=== PATIENT | female | born 1955 | race Caucasian/White ===

== ENCOUNTER 2020-06-03 11:29 | Outpatient (REF) | payer MEDICARE, OTHER, SELFPAY ==
[2020-06-03 12:46] LABS: Anion Gap 16 (12-20); Blood Urea Nitrogen 27 mg/dL (9-16); Calcium 9.7 mg/dL (8.4-10.2); Carbon Dioxide 28 mmol/L (22-29); Chloride 101 mmol/L (96-108); Estimated Glomerular Filt Rate 45; Glucose Random 107 mg/dL (60-115); Potassium 4.4 mmol/L (3.3-5.1); Rheumatoid Factor < 15.0 IU/mL (<15.0); Sodium 141 mmol/L (135-145)
[2020-06-03 13:07] LABS: Erythrocyte Sedimentation Rate 18 MM/HR (0-20)
[2020-06-04 05:43] LABS: Lyme Abs Screen <0.90 index
[2020-06-04 09:20] LABS: Syphilis Screen Nonreactive (Nonreactive)
[2020-06-04 13:37] LABS: Anti Nuclear Antibody Screen NEGATIVE (NEGATIVE)
[2020-06-04 15:37] LABS: Anti DNA DS Antibody <1 IU/mL
[2020-06-05 11:42] LABS: IgA 224 mg/dL (70-320); IgG 866 mg/dL (600-1540); IgM 180 mg/dL (50-300)
== END 2020-06-03 11:30 | disposition home or self-care (01) ==
LOC: HO.LAB 11:29
PROVIDERS: PCP Internal Medicine; Visit Provider Psychiatry & Neurology Neurology
DX: G93.40 Encephalopathy, unspecified (principal)
CPT/HCPCS: 36415; 80048; 82784; 85652; 86038; 86039; 86225; 86334; 86431; 86618; 86780

== ENCOUNTER 2020-06-09 12:24 | Outpatient (REF) | payer MEDICARE, OTHER, SELFPAY ==
--- NOTE | ~2020-06-09 | MR_ITS ---
MR BRAIN WITHOUT AND WITH IV CONTRAST CLINICAL INFORMATION: Encephalopathy. COMPARISON: Brain MRI 10/09/2018. TECHNIQUE: Multiplanar, multisequence MRI of the brain was obtained before and after the intravenous administration of 9 mL Gadavist. FINDINGS: There is no pathologic intracranial enhancement. Stable nonspecific T2 signal changes within the supratentorial subcortical and deep white matter. There is no hydrocephalus, extra-axial surface collection, or herniation. The major flow voids at the skull base are preserved. There is no acute infarct on diffusion-weighted imaging. There is no intracranial hemorrhage on the gradient recalled echo acquisition. There is a partially empty sella. The cerebellar tonsils are normally positioned. The cerebellum and brainstem are normal. The craniocervical junction is normal. Osseous marrow signal intensity is homogenous. The visualized soft tissues are unremarkable. MR/MR head/brain wo/w con IMPRESSION: - No acute intracranial findings. No enhancing lesions. - Stable nonspecific T2 signal changes within the supratentorial subcortical and deep white matter. - There is a partially empty sella.
== END 2020-06-09 12:25 | disposition home or self-care (01) ==
LOC: HO.MRI 12:24
PROVIDERS: Visit Provider Psychiatry & Neurology Neurology
DX: G93.40 Encephalopathy, unspecified (principal)
CPT/HCPCS: 70553; A9585

== ENCOUNTER 2020-07-06 13:03 | Outpatient (REF) | payer MEDICARE, SELFPAY ==
--- NOTE | ~2020-07-06 | MM_ITS ---
EXAMINATION: MM SCREENING DIGITAL BREAST TOMOSYNTHESIS, BILATERAL CLINICAL INFORMATION: Screening. Asymptomatic. Family history breast cancer in sister, age 58. The lifetime risk of breast cancer based on the Tyrer-Cuzick Model is 12%. COMPARISON: Outside mammography: 04/26/2018, 05/26/2016 ([place]) TECHNIQUE: Digital breast tomosynthesis is performed in both the craniocaudal and mediolateral oblique views along with computer-aided detection (CAD). Synthesized 2D images are generated from the tomosynthesis. FINDINGS: There are scattered areas of fibroglandular density (ACR BI-RADS breast composition Category b). Breast tissue composition borders on predominantly fatty. Left breast is unremarkable. There is no interval mass or architectural abnormality. Low left axillary tail nodes are stable. Neither breast shows abnormal calcifications. The skin contours are smooth. Right CC view has asymmetric density mid outer quadrant likely summation artifact. There is no correlate on the MLO view. Patient will be recalled for additional imaging. MM/MM tomosynthesis screening BI IMPRESSION: 1. Right: Asymmetric density mid outer quadrant on CC view likely summation artifact. 2. Left: No mammographic evidence of malignancy. ASSESSMENT: BI-RADS 0: Incomplete - Need Additional Imaging Evaluation RECOMMENDATION: 1. Additional views of the right breast (3-D spot CC, 3-D rolled CC x2). 2. Targeted ultrasound if warranted after review of the additional views. 3. Radiology department staff will contact the patient for additional imaging. This patient's information was entered into a reminder system with a target due date for their next mammogram.
--- NOTE | ~2020-07-06 | MM_ITS ---
EXAMINATION: BONE DENSITOMETRY CLINICAL INDICATION: Menopausal. COMPARISON: This is the patient's baseline examination. TECHNIQUE: Using a Joost DXA System (software version: 13.1) manufactured by [employer], dual-energy x-ray absorptiometry was performed of the lumbar spine and left hip. The images are of good technical quality. Summary results are attached. FINDINGS: AP SPINE L1-L4: BMD 1.249 g/cm2, Z-score 1.3, T-score 0.6, normal. LEFT FEMUR, NECK: BMD 1.040 g/cm2, Z-score 0.9, T-score 0.0, normal. LEFT FEMUR, TOTAL: BMD 1.155 g/cm2, Z-score 1.8, T-score 1.2, normal. IDENTIFIED RISK FACTORS: None listed. HISTORY OF FRACTURE: Recurrent falls, low calcium intake, thiazide, menopause. MEDICATIONS: Vitamin D. MM/XR DEXA axial skeleton IMPRESSION: 1. DIAGNOSIS: Normal bone density based on the lowest T-score value of 0.0 in the femoral neck applying World Health Organization criteria. 2. 10-YEAR FRACTURE RISK PREDICTION, FRAX: Major osteoporotic fracture (clinical spine, forearm, hip or shoulder) 6.1%. Hip fracture 0.2%. 3. Treatment Recommendations: NOF guidelines recommend consideration for treatment in postmenopausal women and men age 50 and older presenting with the following: -A hip or vertebral (clinical or morphometric) fracture. -T-score less than or equal to -2.5 at the femoral neck or spine after appropriate evaluation to exclude secondary causes. -Low bone mass at the hip or spine and a 10-year fracture probability by FRAX of greater than or equal to 3% for hip fracture or greater than or equal to 20% for major osteoporotic fracture based on the [place] adapted WHO algorithm. 4. Other Recommendations: All treatment decisions require clinical judgment and consideration of individual patient factors, including patient preferences, comorbidities, previous drug use, risk factors not captured in the FRAX model (e.g. frailty, falls, vitamin D deficiency, increased bone turnover, interval significant decline in bone density) and possible under or overestimation of fracture risk by FRAX. FUTURE SCAN RECOMMENDATION: People with diagnosed cases of osteoporosis or at high risk for fracture should have regular bone mineral density tests. For patients eligible for Medicare, routine testing is allowed once every 2 years. The testing frequency can be increased to one year for patients who have rapidly progressing disease, those who are receiving or discontinuing medical therapy to restore bone mass, or have additional risk factors.
== END 2020-07-06 13:04 | disposition home or self-care (01) ==
LOC: HO.MAMMO 13:03
PROVIDERS: Visit Provider Internal Medicine
DX: Z13.820 Encounter for screening for osteoporosis (principal); Z78.0 Asymptomatic menopausal state; E58 Dietary calcium deficiency; Z91.81 History of falling; Z79.899 Other long term (current) drug therapy; Z12.31 Encounter for screening mammogram for malignant neoplasm of breast; Z80.3 Family history of malignant neoplasm of breast
CPT/HCPCS: 77063; 77067; 77080

== ENCOUNTER 2020-07-06 15:57 | Outpatient (REF) | payer MEDICARE, SELFPAY ==
[2020-07-08 19:12] LABS: HPV mRNA E6/E7 rflx Not Detected (Not Detected)
== END 2020-07-06 15:58 | disposition home or self-care (01) ==
LOC: HO.LAB 15:57
PROVIDERS: Visit Provider Obstetrics & Gynecology
DX: Z01.419 Encounter for gynecological examination (general) (routine) without abnormal findings (principal)
CPT/HCPCS: 36415; 87624; 88142

== ENCOUNTER 2020-07-14 13:21 | Outpatient (REF) | payer MEDICARE, SELFPAY | END 2020-07-14 13:22 | disposition home or self-care (01) | LOC: HO.MDS 13:21 | PROVIDERS: PCP Internal Medicine; Visit Provider Psychiatry & Neurology Neurology | DX: G35 Multiple sclerosis (principal) | CPT/HCPCS: 96365; J2930 ==

== ENCOUNTER 2020-07-15 13:52 | Outpatient (REF) | payer MEDICARE, SELFPAY | END 2020-07-15 13:53 | disposition home or self-care (01) | LOC: HO.MDS 13:52 | PROVIDERS: PCP Internal Medicine; Visit Provider Psychiatry & Neurology Neurology | DX: G35 Multiple sclerosis (principal) | CPT/HCPCS: 96365; J2930 ==

== ENCOUNTER 2020-07-16 13:16 | Outpatient (REF) | payer MEDICARE, SELFPAY | END 2020-07-16 13:17 | disposition home or self-care (01) | LOC: HO.MDS 13:16 | PROVIDERS: PCP Internal Medicine; Visit Provider Psychiatry & Neurology Neurology | DX: G35 Multiple sclerosis (principal) | CPT/HCPCS: 96365; J2930 ==

== ENCOUNTER 2020-07-20 12:53 | Outpatient (REF) | payer MEDICARE, SELFPAY ==
--- NOTE | ~2020-07-20 | US_ITS ---
EXAMINATION: PELVIC ULTRASOUND CLINICAL INFORMATION: Postmenopausal bleeding. COMPARISON: Previous CT of the abdomen and pelvis March 2019 TECHNIQUE: Transabdominal and transvaginal pelvic ultrasound was performed. Transvaginal exam was performed for better visualization of the uterus and ovaries. Exam is limited due to patient body habitus. The bladder is not full and transabdominal images are limited. FINDINGS: The uterus is anteverted and measures 5.5 x 2.8 x 4.7 cm in dimension. Endometrial thickness measures 0.5 cm. There is a small amount of fluid seen in the endometrial cavity. No focal uterine lesion is seen. The right ovary measures 2.9 x 1.8 x 2.3 cm. There is a 2.9 x 1.6 x 1.5 cm minimally complex cyst with single thin septation. The left ovary is not well visualized and difficult to measure. There is a left adnexal simple cyst that measures 2.9 x 2.5 x 1.1 cm. There is trace fluid in the pelvis. US/US transvaginal IMPRESSION: Limited exam. Endometrial thickness upper normal measuring 0.5 cm. There is a small amount of fluid in the endometrial cavity. 2.9 x 1.6 x 1.5 cm minimally complex right ovarian cyst with single thin septation. Left ovary not well visualized. 2.9 x 2.5 x 1.1 cm simple left adnexal cyst.
--- NOTE | ~2020-07-20 | US_ITS ---
EXAMINATION: PELVIC ULTRASOUND CLINICAL INFORMATION: Postmenopausal bleeding. COMPARISON: Previous CT of the abdomen and pelvis March 2019 TECHNIQUE: Transabdominal and transvaginal pelvic ultrasound was performed. Transvaginal exam was performed for better visualization of the uterus and ovaries. Exam is limited due to patient body habitus. The bladder is not full and transabdominal images are limited. FINDINGS: The uterus is anteverted and measures 5.5 x 2.8 x 4.7 cm in dimension. Endometrial thickness measures 0.5 cm. There is a small amount of fluid seen in the endometrial cavity. No focal uterine lesion is seen. The right ovary measures 2.9 x 1.8 x 2.3 cm. There is a 2.9 x 1.6 x 1.5 cm minimally complex cyst with single thin septation. The left ovary is not well visualized and difficult to measure. There is a left adnexal simple cyst that measures 2.9 x 2.5 x 1.1 cm. There is trace fluid in the pelvis. US/US pelvic complete IMPRESSION: Limited exam. Endometrial thickness upper normal measuring 0.5 cm. There is a small amount of fluid in the endometrial cavity. 2.9 x 1.6 x 1.5 cm minimally complex right ovarian cyst with single thin septation. Left ovary not well visualized. 2.9 x 2.5 x 1.1 cm simple left adnexal cyst.
== END 2020-07-20 12:54 | disposition home or self-care (01) ==
LOC: HO.US 12:53
PROVIDERS: Visit Provider Obstetrics & Gynecology
DX: N95.0 Postmenopausal bleeding (principal)
CPT/HCPCS: 76830; 76856

== ENCOUNTER 2020-08-03 12:14 | Outpatient (REF) | payer MEDICARE, SELFPAY ==
[2020-08-03 13:09] LABS: Hematocrit 40.2 % (37-47); Mean Corpuscular HGB Conc 32.3 g/dl (31.0-35.0); Mean Corpuscular Hemoglobin 31.3 pg (27.0-33.0); Mean Corpuscular Volume 96.9 fL (80-98); Mean Platelet Volume 10.5 fL (9.4-12.3); Platelet Count 320 X10*3/uL (160-400); Red Blood Count 4.15 X10*6/uL (4.20-5.50); Red Cell Distribution Width 12.9 % (11.0-16.0); White Blood Count 9.1 X10*3/uL (4.8-10.8)
[2020-08-03 13:39] LABS: Alanine Aminotransferase 27 U/L (0-31); Albumin Level 4.1 g/dL (3.5-5.0); Alkaline Phosphatase 52 U/L (39-117); Anion Gap 13 (12-20); Aspartate Amino Transferase 23 U/L (5-31); Bilirubin Direct 0.2 mg/dL (0.0-0.5); Bilirubin Total 0.5 mg/dL (0.0-1.0); Blood Urea Nitrogen 21 mg/dL (9-16); Calcium 8.6 mg/dL (8.4-10.2); Carbon Dioxide 31 mmol/L (22-29); Chloride 102 mmol/L (96-108); Estimated Glomerular Filt Rate > 60; Glucose Random 136 mg/dL (60-115); Potassium 3.9 mmol/L (3.3-5.1); Sodium 142 mmol/L (135-145); Total Protein 6.5 g/dL (6.5-8.0)
[2020-08-03 14:00] LABS: Vitamin D 25-OH Total 43.1 ng/mL (>30)
[2020-08-16 21:52] LABS: JCV Antibody POSITIVE; JCV Index Value 3.16
== END 2020-08-03 12:15 | disposition home or self-care (01) ==
LOC: HO.LAB 12:14
PROVIDERS: PCP Internal Medicine; Visit Provider Psychiatry & Neurology Neurology
DX: G35 Multiple sclerosis (principal)
CPT/HCPCS: 36415; 80048; 80076; 82306; 85027; 86711

== ENCOUNTER 2020-08-04 08:27 | Outpatient (REF) | payer MEDICARE, SELFPAY ==
--- NOTE | ~2020-08-04 | MM_ITS ---
EXAMINATION: MM DIAGNOSTIC DIGITAL BREAST TOMOSYNTHESIS, RIGHT CLINICAL INFORMATION: Recall from screening for asymmetric density mid outer right breast on CC tomography without MLO correlate. Family history breast cancer sister, age 58. COMPARISON: Mammography: 07/06/2020 ([facility]), outside exams (2D FFDM) 04/26/2018, 05/26/2016 ([place]). TECHNIQUE: Digital breast tomosynthesis is performed. 2D images are generated from the tomosynthesis. The following views are obtained: 3-D spot CC, 3-D rolled CC x2. FINDINGS: There are scattered areas of fibroglandular density (ACR BI-RADS breast composition Category b). The additional views show fibroglandular densities mid outer breast similar to the 2-D CC view outside exam. There is no mass or architectural abnormality. Results are discussed with the patient at time of visit. Given the family history and as a precaution, follow-up right digital breast tomosynthesis will be recommended in 6 months. MM/MM tomosynthesis added views R IMPRESSION: Additional views show no mass or architectural abnormality. ASSESSMENT: BI-RADS 3: Probably Benign RECOMMENDATION: Diagnostic right 3-D mammography in 6 months. This patient's information was entered into a reminder system with a target due date for their next mammogram.
== END 2020-08-04 08:28 | disposition home or self-care (01) ==
LOC: HO.MAMMO 08:27
PROVIDERS: Visit Provider Internal Medicine
DX: N64.89 Other specified disorders of breast (principal); Z80.3 Family history of malignant neoplasm of breast
CPT/HCPCS: 77061; 77065

== ENCOUNTER 2020-08-23 11:00 | Outpatient (REF) | payer MEDICARE, SELFPAY ==
[2020-08-24 09:37] LABS: CA-125 8 U/mL (<35)
== END 2020-08-23 11:01 | disposition home or self-care (01) ==
LOC: HO.LAB 11:00
PROVIDERS: PCP Internal Medicine; Visit Provider Obstetrics & Gynecology
DX: N95.0 Postmenopausal bleeding (principal); N83.299 Other ovarian cyst, unspecified side
CPT/HCPCS: 36415; 86304; Q3014

== ENCOUNTER 2020-10-05 09:50 | Outpatient (REF) | payer MEDICARE, SELFPAY | END 2020-10-05 09:51 | disposition home or self-care (01) | LOC: HO.LAB 09:50 | PROVIDERS: PCP Internal Medicine; Visit Provider Obstetrics & Gynecology | DX: N95.0 Postmenopausal bleeding (principal) | CPT/HCPCS: 58100; 88305 ==

== ENCOUNTER 2020-10-05 23:44 | Emergency (ER) | payer MEDICARE, SELFPAY ==
--- NOTE | ~2020-10-05 | CT_ITS ---
EXAMINATION: CT ABDOMEN AND PELVIS WITHOUT CONTRAST CLINICAL INFORMATION: Pain after procedure with abdominal distention COMPARISON: CT abdomen pelvis 04/05/2019 TECHNIQUE: Multidetector volumetric imaging was performed from the superior aspect of the liver through the pubic symphysis. Sagittal and coronal reformatted images were obtained on the technologist's workstation. This CT examination was performed using dose optimization techniques as appropriate, variously including the following: *Automated exposure control *Adjustment of mA and/or kV according to patient size (this includes techniques or standardized protocols for targeted exams where dose is matched to indication/reason for exam; i.e. extremities or head) *Use of iterative reconstruction technique DLP: 846 mGy-cm FINDINGS: LUNG BASES: The visualized lung bases are unremarkable. Atelectasis is present at the right lung base LIVER, GALLBLADDER, AND BILIARY TREE: The liver is normal in size, shape, and attenuation. No focal hepatic lesion or biliary ductal dilatation is present. The gallbladder is unremarkable with no evidence of radiopaque gallstones, gallbladder wall thickening, or obvious pericholecystic inflammatory changes. PANCREAS: Unremarkable. SPLEEN: Unremarkable. ADRENAL GLANDS: Unremarkable. KIDNEYS AND URETERS: The kidneys are normal in size, shape, and attenuation. No hydronephrosis, hydroureter, or calculi seen. No perinephric stranding. BLADDER: Unremarkable. GASTROINTESTINAL TRACT: Extensive diverticular changes are present throughout the colon, especially on the left. There is one area in the proximal descending colon where there are inflammatory changes around diverticula with thickening of the pericolonic fascia. The small and large bowel are otherwise unremarkable. The appendix is unremarkable. ABDOMINAL WALL: No significant hernia is appreciated. Small bilateral inguinal hernias are present containing only fat. LYMPH NODES: No retroperitoneal lymphadenopathy. VASCULAR: Unremarkable. PELVIC VISCERA: Anteverted uterus is present. An abnormal adnexal mass or free intraperitoneal fluid is not seen. OSSEOUS STRUCTURES: Degenerative changes present in the spine most marked at L5-S1. CT/CT abdomen pelvis wo con IMPRESSION: 1. Extensive colonic diverticulosis. 2. One area in the proximal descending colon with inflammatory changes around the colon at this point. No free extraluminal air is seen. No pericolonic fluid collection is seen. Findings may be related to diverticulitis or possibly iatrogenic trauma given post procedure pain
--- NOTE | 2020-10-05 23:53 | ECG_ITS ---
Test Reason : CHEST PAIN Blood Pressure : / mmHG Vent. Rate : 083 BPM Atrial Rate : 083 BPM P-R Int : 148 ms QRS Dur : 094 ms QT Int : 390 ms P-R-T Axes : 028 040 027 degrees QTc Int : 458 ms Normal sinus rhythm Normal ECG When compared with ECG of 05-APR-2019 21:48, No significant change was found Referred By: Generic ED Physician Electronically Signed By:ZAINA SHETTY MD
[2020-10-05 23:54] VITALS: BP 147/84; PULSE 84; RESP 18; TEMP 35.4; O2SAT 98; BMI 35.4
[2020-10-06 00:03] VITALS: BP 150/80; PULSE 75; O2SAT 96
--- NOTE | 2020-10-06 00:05 | PC.NURSE ---
DIFFICULTY OBTAINING ORAL TEMPERATURE, PT REFUSED RECTAL TEMPERATURE. TEMPORAL WAS 95.6.
--- NOTE | 2020-10-06 00:30 | ED_ITS ---
HPI - General Adult General Chief complaint: General Medical Stated complaint: abd pain Time Seen by Provider: 10/06/20 00:27 Source: patient Mode of arrival: EMS History of Present Illness HPI narrative: This is a 64-year-old female who is brought in by ambulance and on review of procedure today she had undergone an endometrial biops and now presents with diffuse abdominal discomfort, distention but denies any nausea or vomiting. Related Data Home Medications Medication Instructions Recorded Confirmed fluticasone 500 mcg-salmeterol 50 1 ea INHALATION BID 07/06/20 mcg/dose blistr powdr for inhalation hydrochlorothiazide 12.5 mg capsule 12.5 mg PO DAILY 07/06/20 ibuprofen 600 mg tablet 600 mg PO TID 07/06/20 tranylcypromine 10 mg tablet 40 mg PO QAM 07/06/20 Allergies Allergy/AdvReac Type Severity Reaction Status Date / Time celecoxib [From CELEBREX] Allergy Severe RASH AND Verified 10/05/20 23:52 DIFFICULTY BREATHING fluvoxamine [From LUVOX] Allergy Severe GRAND MAL Verified 10/05/20 23:52 SEIZURE acetaminophen [From TYLENOL] Allergy Intermediate LIVER TOX Verified 10/05/20 23:52 sertraline [From ZOLOFT] Allergy Intermediate ABD PAIN Verified 10/05/20 23:52 Review of Systems Review of Systems: Pertinent positives and negatives as stated in HPI 10 point review of systems is otherwise negative. FOR[facility] Past Medical History Source: nursing notes reviewed Medical History Asthma Bipolar 2 disorder Blindness Ectopic Herniated disc MDD (major depressive disorder) PTSD (post-traumatic stress disorder) Surgical History Hx of rotator cuff surgery Social History Social History Alcohol intake: current Alcohol intake frequency: a few times a week Advance Directives: No Advance Directives Information Provided: No Gender identity: female Physical Exam Vital Signs: Vital Signs: Last Vital Signs Temp 95.7 F L 10/05/20 23:54 Pulse 84 10/05/20 23:54 Resp 18 10/05/20 23:54 BP 147/84 H 10/05/20 23:54 Pulse Ox 98 06/08/21 23:54 Body Mass Index 35.4 VITAL SIGNS: Reviewed. GENERAL: Well developed, well nourished, in no acute distress. HEAD: Normocephalic/atraumatic EYES: PERRLA, EOMI OROPHARYNX: no oral lesions noted, posterior pharynx clear LUNGS: Normal breath sounds. No adventitious sounds or accessory muscle use. SpO2<98> CARDIOVASCULAR: Regular rate and rhythm without noted murmurs, no JVD or lower extremity edema. ABDOMEN: Soft, diffuse tenderness without rebound, non-distended with bowel sounds. SKIN: Inspection of the skin reveals pale and diaphoretic. NEUROLOGIC: Alert and oriented x 4. Strength and sensation to light touch were grossly intact x 4. Course Course Course Narrative: 64-year-old female with history and clinical presentation concerning for possible perforation given recent procedure endometrial biopsy, UTI, renal colic Review of all investigations significant for UTI. Patient received initial antibiotics here in the emergency room and was discharged with remaining course. Medical Decision Making Lab Data Result diagrams: 10/06/20 00:54 10/06/20 00:55 ECG Data Attestation: I personally reviewed and interpreted this ECG as follows: Prior ECG tracings: available for review (04/05/2019 no acute changes on comparison) Interpretation: Sinus rhythm, HR -83, no evidence of acute ischemia, WA/QRS/QTC are within normal limits. Discharge Plan Discharge Clinical Impression: UTI (urinary tract infection) Patient Disposition: Home, Self-Care Instructions: Urinary Tract Infection in Women (ED) Additional Instructions: Resume all home medications as prescribed. Return to the ER for any acute worsening of symptoms. Prescriptions: No Action hydrochlorothiazide 12.5 mg capsule 12.5 mg PO DAILY RF: 0 ibuprofen 600 mg tablet 600 mg PO TID RF: 0 fluticasone propion-salmeterol 500-50 mcg/dose blister with device 1 ea inhalation BID RF: 0 tranylcypromine 10 mg tablet 40 mg PO QAM RF: 0 Referrals: Luke Mireles MD [Primary Care Provider] - 2 days
[2020-10-06 00:59] LABS: MANUAL DIFF FLAG NO
[2020-10-06 05:51] LABS: Lactic Acid 0.9 mmol/L (0.5-2.0)
[2020-10-06 05:52] LABS: Basophils Absolute Auto 0.1 X10*3/uL (0.0-0.2); Basophils Percent Auto 0.5 % (0-2); Eosinophils Absolute Auto 0.5 X10*3/uL (0.0-0.4); Eosinophils Percent Auto 4.4 % (0-4); Hemoglobin 12.6 g/dl (12.0-16.0); Imm Gran Abs Auto 0.02 X10*3/uL (0.00-0.03); Imm Gran Pct Auto 0.2 % (0.0-0.4); Lymphocytes Absolute Auto 0.9 X10*3/uL (1.2-4.9); Lymphocytes Percent Auto 7.6 % (20-40); Mean Corpuscular HGB Conc 32.3 g/dl (31.0-35.0); Mean Corpuscular Hemoglobin 31.4 pg (27.0-33.0); Mean Corpuscular Volume 97.3 fL (80-98); Mean Platelet Volume 10.9 fL (9.4-12.3); Monocytes Absolute Auto 0.7 X10*3/uL (0.1-1.2); Monocytes Percent Auto 6.1 % (2-11); Neutrophils Absolute Auto 9.1 X10*3/uL (2.0-8.3); Neutrophils Percent Auto 81.2 % (45-73); Platelet Count 285 X10*3/uL (160-400); Red Blood Count 4.01 X10*6/uL (4.20-5.50); Red Cell Distribution Width 12.7 % (11.0-16.0); White Blood Count 11.2 X10*3/uL (4.8-10.8)
[2020-10-06 06:01] LABS: Glucose Urine UA NEG (NEG); Leukocyte Esterase Urine 1+ (NEG); Nitrite Urine NEG (NEG); UACC Culture Trigger YES; Urine Blood NEG (NEG); Urine Ketones NEG (NEG); Urine Protein NEG (NEG-TRACE)
[2020-10-06 06:02] LABS: Appearance Urine CLEAR; Color Urine YELLOW
[2020-10-06 06:03] LABS: Bacteria Urine TRACE /LPF; Mucus Urine 1+ /LPF; RBC Urine 0-2 /HPF (0); Squamous Epithelial Cell Urine 1+ /LPF; Urine Talc Crystals 2+ /LPF
[2020-10-06 06:06] LABS: Alanine Aminotransferase 138 U/L (0-31); Albumin Level 4.1 g/dL (3.5-5.0); Alkaline Phosphatase 57 U/L (39-117); Anion Gap 13 (12-20); Aspartate Amino Transferase 257 U/L (5-31); Bilirubin Total 0.2 mg/dL (0.0-1.0); Blood Urea Nitrogen 23 mg/dL (9-16); Calcium 9.3 mg/dL (8.4-10.2); Carbon Dioxide 29 mmol/L (22-29); Chloride 102 mmol/L (96-108); Creatinine Clr Calc Pharmacy 78.9; Estimated Glomerular Filt Rate > 60; Glucose Random 161 mg/dL (60-115); Potassium 3.3 mmol/L (3.3-5.1); Sodium 141 mmol/L (135-145); Total Protein 6.3 g/dL (6.5-8.0)
--- NOTE | 2020-10-06 06:32 | PC.NURSE ---
SEE DOWN TIME PAPERWORK. PT DISCHARGED TO , AMBULATORY WITH STEADY GAIT. PT PAIN FREE UPON DISCHARGE. PT QUESTIONING IF SHE HAD A GALLSTONE.
== END 2020-10-06 06:35 | disposition home or self-care (01) ==
PROVIDERS: Emergency Provider Student in an Organized Health Care Education/Training Program; PCP Internal Medicine
DX: N39.0 Urinary tract infection, site not specified (principal); R10.9 Unspecified abdominal pain; Z98.890 Other specified postprocedural states
CPT/HCPCS: 36415; 74176; 80053; 81001; 81003; 83605; 85025; 87040; 87086; 93005; 96360; 99283; 99284

== ENCOUNTER 2020-10-15 13:00 | Outpatient (REF) | payer MEDICARE, SELFPAY ==
--- NOTE | ~2020-10-15 | US_ITS ---
EXAMINATION: US PELVIC COMPLETE US TRANSVAGINAL CLINICAL INFORMATION: Followup ovarian cyst. COMPARISON: Previous CT of the abdomen and pelvis September 2020 and pelvic ultrasound June 2020 TECHNIQUE: Transabdominal and transvaginal pelvic ultrasound was performed. Transvaginal exam was performed for better visualization of the uterus and ovaries. FINDINGS: The uterus is anteverted and measures 4.3 x 2.3 x 3 cm in dimension. There is a hypoechoic lesion in the posterior uterine body measuring 7 x 6 x 9 mm questionable for a small fibroid. No other focal uterine lesion is seen. Endometrial thickness is normal measuring 0.3 cm. The right ovary measures 2.9 x 2 x 2.6 cm. There is question of 2 adjacent cysts or bilobed cyst in the right ovary. These have internal echoes suggestive of complex cysts. Measured as 2 cysts, these measure 1.7 x 1.7 x 1.8 cm and 1.1 x 1.3 x 1.2 cm. Other than low-level internal echoes seen on the current exam, these do not appear appreciably changed from June 2020 ultrasound exam. The left ovary is not seen. There is a left adnexal simple cyst. This measures 2.5 x 0.6 x 2.8 cm. This is similar to previous pelvic ultrasound June 2020. There is no fluid in the pelvis. US/US transvaginal IMPRESSION: Question small uterine fibroid. Question 2 slightly complex right ovarian cysts. This was measured as a single bilobed cyst on June 2020 and other than new internal echoes, it does not appear appreciably changed. Stable simple left adnexal cyst from previous ultrasound June 2020.
--- NOTE | ~2020-10-15 | US_ITS ---
EXAMINATION: US PELVIC COMPLETE US TRANSVAGINAL CLINICAL INFORMATION: Followup ovarian cyst. COMPARISON: Previous CT of the abdomen and pelvis September 2020 and pelvic ultrasound June 2020 TECHNIQUE: Transabdominal and transvaginal pelvic ultrasound was performed. Transvaginal exam was performed for better visualization of the uterus and ovaries. FINDINGS: The uterus is anteverted and measures 4.3 x 2.3 x 3 cm in dimension. There is a hypoechoic lesion in the posterior uterine body measuring 7 x 6 x 9 mm questionable for a small fibroid. No other focal uterine lesion is seen. Endometrial thickness is normal measuring 0.3 cm. The right ovary measures 2.9 x 2 x 2.6 cm. There is question of 2 adjacent cysts or bilobed cyst in the right ovary. These have internal echoes suggestive of complex cysts. Measured as 2 cysts, these measure 1.7 x 1.7 x 1.8 cm and 1.1 x 1.3 x 1.2 cm. Other than low-level internal echoes seen on the current exam, these do not appear appreciably changed from June 2020 ultrasound exam. The left ovary is not seen. There is a left adnexal simple cyst. This measures 2.5 x 0.6 x 2.8 cm. This is similar to previous pelvic ultrasound June 2020. There is no fluid in the pelvis. US/US pelvic complete IMPRESSION: Question small uterine fibroid. Question 2 slightly complex right ovarian cysts. This was measured as a single bilobed cyst on June 2020 and other than new internal echoes, it does not appear appreciably changed. Stable simple left adnexal cyst from previous ultrasound June 2020.
== END 2020-10-15 13:01 | disposition home or self-care (01) ==
LOC: HO.HMGCX 13:00
PROVIDERS: Visit Provider Obstetrics & Gynecology
DX: N83.299 Other ovarian cyst, unspecified side (principal)
CPT/HCPCS: 76830; 76856

== ENCOUNTER → 2020-10-18 11:04 | Outpatient (BNVA) | payer MEDICARE, SELFPAY | PROVIDERS: PCP Internal Medicine; Visit Provider Obstetrics & Gynecology | DX: N95.0 Postmenopausal bleeding (principal); N83.299 Other ovarian cyst, unspecified side | CPT/HCPCS: Q3014 ==

== ENCOUNTER 2021-02-04 11:23 | Outpatient (REF) | payer MEDICARE, OTHER, SELFPAY ==
--- NOTE | ~2021-02-04 | MM_ITS ---
EXAMINATION: MM DIAGNOSTIC DIGITAL BREAST TOMOSYNTHESIS, RIGHT CLINICAL INFORMATION: Prior question asymmetric density mid outer right breast with negative subsequent diagnostic imaging. Assess for developing density. Family history breast cancer sister, cousin, grandmother. The lifetime risk of breast cancer based on the Tyrer-Cuzick Model is 12%. COMPARISON: Mammography: 08/04/2020, 07/06/2020; outside mammography from [facility] dated 04/26/2018, 05/26/2016. TECHNIQUE: Digital breast tomosynthesis is performed in both the craniocaudal and mediolateral oblique views along with computer-aided detection (CAD). Synthesized 2D images are generated from the tomosynthesis. FINDINGS: There are scattered areas of fibroglandular density (ACR BI-RADS breast composition Category b). Right breast parenchymal pattern is similar to prior studies. There is no developing density, mass, or architectural abnormality. No abnormal calcifications. The axilla and skin contours are unremarkable. Results are provided to the patient at time of visit by the technologist. MM/MM tomosynthesis diagnostic RT IMPRESSION: No mammographic evidence of malignancy. No significant changes in mammographic pattern from prior studies dating back to 2017. ASSESSMENT: BI-RADS 1: Negative RECOMMENDATION: Routine annual mammography screening. This patient's information was entered into a reminder system with a target due date for their next mammogram.
== END 2021-02-04 11:24 | disposition home or self-care (01) ==
LOC: HO.MAMMO 11:23
PROVIDERS: Visit Provider Internal Medicine
DX: R92.2 Inconclusive mammogram (principal)
CPT/HCPCS: 77061; 77065

== ENCOUNTER 2021-06-10 09:11 | Outpatient (REF) | payer MEDICARE, SELFPAY ==
[2021-06-10 10:20] LABS: Cholesterol 227 mg/dL; HDL Cholesterol 60 mg/dL; LDL Cholesterol Calculated 145 mg/dl; Triglycerides 114 mg/dL
[2021-06-10 10:35] LABS: Estimated Average Glucose 120 mg/dL; Hemoglobin A1c % 5.8 %
[2021-06-10 10:48] LABS: Vitamin B12 298 pg/mL (200-900)
== END 2021-06-10 09:12 | disposition home or self-care (01) ==
LOC: HO.LAB 09:11
PROVIDERS: PCP Internal Medicine; Visit Provider Internal Medicine
DX: E78.5 Hyperlipidemia, unspecified (principal); R53.83 Other fatigue
CPT/HCPCS: 36415; 80061; 82607; 83036

== ENCOUNTER 2021-08-16 12:32 | Outpatient (REF) | payer MEDICARE, SELFPAY ==
[2021-08-16 12:59] LABS: MANUAL DIFF FLAG NO
[2021-08-16 13:23] LABS: Basophils Percent Auto 0.6 % (0-2); Eosinophils Absolute Auto 0.4 X10*3/uL (0.0-0.4); Eosinophils Percent Auto 5.6 % (0-4); Hematocrit 38.9 % (37.0-47.0); Hemoglobin 12.7 g/dl (12.0-16.0); Imm Gran Abs Auto 0.04 X10*3/uL (0.00-0.03); Imm Gran Pct Auto 0.6 % (0.0-0.4); Lymphocytes Absolute Auto 0.6 X10*3/uL (1.2-4.9); Lymphocytes Percent Auto 8.9 % (20-40); Mean Corpuscular HGB Conc 32.6 g/dl (31.0-35.0); Mean Corpuscular Hemoglobin 31.6 pg (27.0-33.0); Mean Corpuscular Volume 96.8 fL (80.0-98.0); Mean Platelet Volume 10.4 fL (9.4-12.3); Monocytes Absolute Auto 0.6 X10*3/uL (0.1-1.2); Monocytes Percent Auto 8.4 % (2-11); Neutrophils Absolute Auto 5.1 x10*3/uL (2.0-8.3); Neutrophils Percent Auto 75.9 % (45-73); Platelet Count 338 X10*3/uL (160-400); Red Blood Count 4.02 X10*6/uL (4.20-5.50); Red Cell Distribution Width 12.8 % (11.0-16.0); White Blood Count 6.7 X10*3/uL (4.8-10.8)
[2021-08-16 13:52] LABS: Alanine Aminotransferase 27 U/L (0-31); Alanine Aminotransferase 28 U/L (0-31); Albumin Level 4.1 g/dL (3.5-5.0); Alkaline Phosphatase 39 U/L (39-117); Alkaline Phosphatase 40 U/L (39-117); Anion Gap 15 (12-20); Aspartate Amino Transferase 27 U/L (5-31); Bilirubin Direct < 0.2 mg/dL (0.0-0.5); Bilirubin Total 0.3 mg/dL (0.0-1.0); Blood Urea Nitrogen 22 mg/dL (9-16); Calcium 9.6 mg/dL (8.4-10.2); Carbon Dioxide 28 mmol/L (22-29); Chloride 103 mmol/L (96-108); Cholesterol 198 mg/dL; Estimated Glomerular Filt Rate > 60; Glucose Fasting 123 mg/dL (60-99); HDL Cholesterol 68 mg/dL; LDL Cholesterol Calculated 114 mg/dl; Potassium 4.6 mmol/L (3.3-5.1); Sodium 141 mmol/L (135-145); Total Protein 6.5 g/dL (6.5-8.0); Triglycerides 84 mg/dL
== END 2021-08-16 12:33 | disposition home or self-care (01) ==
LOC: HO.LAB 12:32
PROVIDERS: Absent Provider Internal Medicine; PCP Internal Medicine; Visit Provider Psychiatry & Neurology Neurology
DX: E78.00 Pure hypercholesterolemia, unspecified (principal); R53.83 Other fatigue
CPT/HCPCS: 36415; 80053; 80061; 80076; 82248; 85025

== ENCOUNTER 2021-08-31 10:52 | Outpatient (REF) | payer MEDICARE, SELFPAY | END 2021-08-31 10:53 | disposition home or self-care (01) | LOC: HO.MDS 10:52 | PROVIDERS: PCP Internal Medicine; Visit Provider Psychiatry & Neurology Neurology | DX: G35 Multiple sclerosis (principal) | CPT/HCPCS: 96365; J2930 ==

== ENCOUNTER 2021-09-01 11:24 | Outpatient (REF) | payer MEDICARE, SELFPAY ==
[2021-09-02 07:50] LABS: Glucose, Whole Blood 140 mg/dL (60-115)
== END 2021-09-01 11:25 | disposition home or self-care (01) ==
LOC: HO.MDS 11:24
PROVIDERS: PCP Internal Medicine; Visit Provider Psychiatry & Neurology Neurology
DX: G35 Multiple sclerosis (principal)
CPT/HCPCS: 82947; 96365; J2930

== ENCOUNTER 2021-09-02 11:51 | Outpatient (REF) | payer MEDICARE, SELFPAY | END 2021-09-02 11:52 | disposition home or self-care (01) | LOC: HO.MDS 11:51 | PROVIDERS: PCP Internal Medicine; Visit Provider Psychiatry & Neurology Neurology | DX: G35 Multiple sclerosis (principal) | CPT/HCPCS: 96365; J2930 ==

== ENCOUNTER 2021-09-07 12:58 | Outpatient (REF) | payer MEDICARE, SELFPAY ==
--- NOTE | ~2021-09-07 | MM_ITS ---
EXAMINATION: MM SCREENING DIGITAL BREAST TOMOSYNTHESIS, BILATERAL CLINICAL INFORMATION: Screening. Asymptomatic. Family history breast cancer, sister. The lifetime risk of breast cancer based on the Tyrer-Cuzick Model is 12%. COMPARISON: Mammography: 02/04/2021, 08/04/2020, 07/06/2020, outside exam 04/26/2018 ([place]) TECHNIQUE: Digital breast tomosynthesis is performed in both the craniocaudal and mediolateral oblique views along with computer-aided detection (CAD). Synthesized 2D images are generated from the tomosynthesis. FINDINGS: There are scattered areas of fibroglandular density (ACR BI-RADS breast composition Category b). Breast tissue composition borders on predominantly fatty. Background stromal and fibroglandular densities are stable. There is no interval mass or developing density or architectural abnormality. No abnormal calcifications. The axilla and skin contours are unremarkable. MM/MM tomosynthesis screening BI IMPRESSION: No mammographic evidence of malignancy. ASSESSMENT: BI-RADS 1: Negative RECOMMENDATION: Routine annual mammography screening. This patient's information was entered into a reminder system with a target due date for their next mammogram.
== END 2021-09-07 12:59 | disposition home or self-care (01) ==
LOC: HO.MAMMO 12:58
PROVIDERS: Visit Provider Internal Medicine
DX: Z12.31 Encounter for screening mammogram for malignant neoplasm of breast (principal)
CPT/HCPCS: 77063; 77067

== ENCOUNTER 2021-11-24 13:50 | Outpatient (REF) | payer MEDICARE, SELFPAY | END 2021-11-24 13:51 | disposition home or self-care (01) | LOC: HO.MDS 13:50 | PROVIDERS: PCP Internal Medicine; Visit Provider Psychiatry & Neurology Neurology | DX: G35 Multiple sclerosis (principal) | CPT/HCPCS: 96365; J2930 ==

== ENCOUNTER 2021-12-31 10:32 | Outpatient (REF) | payer MEDICARE, SELFPAY ==
[2021-12-31 11:40] LABS: Troponin-I High Sensitivity < 3.5 ng/L (<3.5-17.0)
== END 2021-12-31 10:33 | disposition home or self-care (01) ==
LOC: HO.LAB 10:32
PROVIDERS: PCP Internal Medicine; Visit Provider Internal Medicine
DX: R07.89 Other chest pain (principal)
CPT/HCPCS: 36415; 84484

== ENCOUNTER 2022-03-02 14:33 | Outpatient (REF) | payer MEDICARE, SELFPAY ==
[2022-03-02 14:59] LABS: MANUAL DIFF FLAG NO
[2022-03-02 15:26] LABS: Basophils Percent Auto 0.6 % (0-2); Eosinophils Absolute Auto 0.3 X10*3/uL (0.0-0.4); Eosinophils Percent Auto 3.9 % (0-4); Hematocrit 42.7 % (37.0-47.0); Hemoglobin 13.5 g/dl (12.0-16.0); Imm Gran Abs Auto 0.04 X10*3/uL (0.00-0.03); Imm Gran Pct Auto 0.6 % (0.0-0.4); Lymphocytes Absolute Auto 0.6 X10*3/uL (1.2-4.9); Lymphocytes Percent Auto 8.7 % (20-40); Mean Corpuscular HGB Conc 31.6 g/dl (31.0-35.0); Mean Corpuscular Hemoglobin 30.2 pg (27.0-33.0); Mean Corpuscular Volume 95.5 fL (80.0-98.0); Monocytes Absolute Auto 0.5 X10*3/uL (0.1-1.2); Monocytes Percent Auto 8.4 % (2-11); Neutrophils Absolute Auto 4.9 x10*3/uL (2.0-8.3); Neutrophils Percent Auto 77.8 % (45-73); Platelet Count 385 X10*3/uL (160-400); Red Blood Count 4.47 X10*6/uL (4.20-5.50); Red Cell Distribution Width 12.5 % (11.0-16.0); White Blood Count 6.3 X10*3/uL (4.8-10.8)
[2022-03-02 15:29] LABS: Estimated Average Glucose 128 mg/dL; Hemoglobin A1c % 6.1 %
[2022-03-02 16:26] LABS: Alanine Aminotransferase 38 U/L (0-31); Albumin Level 4.4 g/dL (3.5-5.0); Alkaline Phosphatase 48 U/L (39-117); Anion Gap 22 (12-20); Aspartate Amino Transferase 30 U/L (5-31); Bilirubin Total 0.4 mg/dL (0.0-1.0); Blood Urea Nitrogen 26 mg/dL (9-16); Calcium 9.6 mg/dL (8.4-10.2); Carbon Dioxide 21 mmol/L (22-29); Chloride 106 mmol/L (96-108); Cholesterol 223 mg/dL; Estimated Glomerular Filt Rate > 60; Glucose Fasting 123 mg/dL (60-99); HDL Cholesterol 68 mg/dL; LDL Cholesterol Calculated 132 mg/dl; Potassium 4.2 mmol/L (3.3-5.1); Sodium 145 mmol/L (135-145); Triglycerides 116 mg/dL
[2022-03-02 16:46] LABS: Vitamin B12 217 pg/mL (200-900)
== END 2022-03-02 14:34 | disposition home or self-care (01) ==
LOC: HO.LAB 14:33
PROVIDERS: PCP Internal Medicine; Visit Provider Internal Medicine
DX: E11.9 Type 2 diabetes mellitus without complications (principal); E78.5 Hyperlipidemia, unspecified; R53.83 Other fatigue; D51.9 Vitamin B12 deficiency anemia, unspecified
CPT/HCPCS: 36415; 80053; 80061; 82607; 83036; 85025

== ENCOUNTER 2023-01-05 13:43 | Outpatient (REF) | payer OTHER, MEDICAID, SELFPAY ==
--- NOTE | ~2023-01-05 | XR_ITS ---
EXAMINATION: XR CHEST CLINICAL INFORMATION: Reason for Exam RT RIB PAIN COMPARISON: None TECHNIQUE: 2 views of the chest FINDINGS: Lines and tubes: None. Streaky right midlung and right basilar opacities may reflect atelectasis. No pleural effusion. No pneumothorax. Ectatic thoracic aorta. Normal cardiac silhouette. No displaced rib fracture appreciated however chest radiographs have limited sensitivity and the ribs were incompletely imaged. XR/XR chest 2V IMPRESSION: 1. Streaky right midlung and right basilar opacities may reflect atelectasis. 2. No displaced rib fracture appreciated however chest radiographs have limited sensitivity and the ribs were incompletely imaged. If clinical concern for rib fracture consider dedicated rib radiographs. 3. Ectatic thoracic aorta.
[2023-01-05 14:01] LABS: MANUAL DIFF FLAG NO
[2023-01-05 14:48] LABS: Basophils Percent Auto 0.6 % (0-2); Eosinophils Absolute Auto 0.3 X10*3/uL (0.0-0.4); Eosinophils Percent Auto 4.6 % (0-4); Hematocrit 40.1 % (37.0-47.0); Hemoglobin 12.9 g/dl (12.0-16.0); Imm Gran Abs Auto 0.03 X10*3/uL (0.00-0.03); Imm Gran Pct Auto 0.6 % (0.0-0.4); Lymphocytes Absolute Auto 0.5 X10*3/uL (1.2-4.9); Lymphocytes Percent Auto 9.2 % (20-40); Mean Corpuscular HGB Conc 32.2 g/dl (31.0-35.0); Mean Corpuscular Hemoglobin 30.7 pg (27.0-33.0); Mean Corpuscular Volume 95.5 fL (80.0-98.0); Mean Platelet Volume 10.8 fL (9.4-12.3); Monocytes Absolute Auto 0.4 X10*3/uL (0.1-1.2); Monocytes Percent Auto 7.2 % (2-11); Neutrophils Absolute Auto 4.2 x10*3/uL (2.0-8.3); Neutrophils Percent Auto 77.8 % (45-73); Platelet Count 307 X10*3/uL (160-400); Red Cell Distribution Width 12.3 % (11.0-16.0); White Blood Count 5.4 X10*3/uL (4.8-10.8)
[2023-01-05 14:52] LABS: Estimated Average Glucose 123 mg/dL; Hemoglobin A1c % 5.9 % (<6.0)
[2023-01-05 15:30] LABS: Alanine Aminotransferase 40 U/L (0-31); Alkaline Phosphatase 44 U/L (39-117); Anion Gap 10 (12-20); Aspartate Amino Transferase 44 U/L (5-31); Bilirubin Direct 0.1 mg/dL (0.0-0.5); Bilirubin Total 0.4 mg/dL (0.0-1.0); Blood Urea Nitrogen 15 mg/dL (9-16); Carbon Dioxide 31 mmol/L (22-29); Chloride 106 mmol/L (96-108); Cholesterol 197 mg/dL (<200); Estimated Glomerular Filt Rate > 60; Glucose Fasting 113 mg/dL (60-99); HDL Cholesterol 57 mg/dL (>40); LDL Cholesterol Calculated 120 mg/dL (<100); Potassium 4.2 mmol/L (3.3-5.1); Sodium 143 mmol/L (135-145); Total Protein 6.4 g/dL (6.5-8.0); Triglycerides 101 mg/dL (<150)
[2023-01-05 15:51] LABS: Free T4 (Free Thyroxine) 0.88 ng/dL (0.71-1.85); Thyroid Stimulating Hormone 0.45 uIU/mL (0.32-4.0)
== END 2023-01-05 13:44 | disposition home or self-care (01) ==
LOC: HO.XRAY 13:43
PROVIDERS: Internal Medicine; PCP Internal Medicine; Visit Provider Internal Medicine
DX: R07.81 Pleurodynia (principal); R53.83 Other fatigue
CPT/HCPCS: 36415; 71046; 80051; 80061; 80076; 82565; 82947; 83036; 84439; 84443; 84520; 85025

== ENCOUNTER 2023-04-10 13:56 | Outpatient (REF) | payer OTHER, SELFPAY | END 2023-04-10 13:57 | disposition home or self-care (01) | LOC: HO.MAMMO 13:56 | PROVIDERS: PCP Internal Medicine; Visit Provider Internal Medicine | DX: Z12.31 Encounter for screening mammogram for malignant neoplasm of breast (principal) | CPT/HCPCS: 77063; 77067 ==

== ENCOUNTER → 2023-04-10 14:45 | Outpatient (BNV) | payer OTHER, SELFPAY | PROVIDERS: PCP Internal Medicine; Visit Provider Radiology Diagnostic Radiology | DX: Z12.31 Encounter for screening mammogram for malignant neoplasm of breast (principal) | CPT/HCPCS: 77063; 77067 ==

== ENCOUNTER 2023-05-16 13:58 | Outpatient (REF) | payer OTHER, SELFPAY | END 2023-05-16 13:59 | disposition home or self-care (01) | LOC: HO.MDS 13:58 | PROVIDERS: Visit Provider Psychiatry & Neurology Neurology | DX: G35 Multiple sclerosis (principal) | CPT/HCPCS: 96365; J2930 ==

== ENCOUNTER 2023-06-21 13:56 | Outpatient (REF) | payer OTHER, SELFPAY | END 2023-06-21 13:57 | disposition home or self-care (01) | LOC: HO.MDS 13:56 | PROVIDERS: Visit Provider Psychiatry & Neurology Neurology | DX: G35 Multiple sclerosis (principal) | CPT/HCPCS: 96365; J2930 ==

== ENCOUNTER 2023-07-26 13:34 | Outpatient (REF) | payer OTHER, SELFPAY ==
[2023-07-26 13:37] VITALS: BP 120/50; PULSE 97; RESP 20; TEMP 36.6; O2SAT 95
[2023-07-26] MEDS: methylPREDNISolone Sod Succ 1,000 MG in 0.9 % Sodium Chloride 50 ML 66 MG IV (13:45)
== END 2023-07-26 13:35 | disposition home or self-care (01) ==
LOC: HO.MDS 13:34
PROVIDERS: Visit Provider Psychiatry & Neurology Neurology
DX: G35 Multiple sclerosis (principal)
CPT/HCPCS: 96365; J2930

== ENCOUNTER 2023-09-17 14:05 | Outpatient (REF) | payer OTHER, SELFPAY ==
--- NOTE | ~2023-09-17 | MR_ITS ---
MRI OF THE CERVICAL SPINE WITH AND WITHOUT CONTRAST MRI OF THE THORACIC SPINE WITH AND WITHOUT CONTRAST INDICATION: Multiple sclerosis. COMPARISON: None available. TECHNIQUE: Multiplanar multisequence MR imaging of the cervical and thoracic spine obtained before and following the administration of 10 mL of Gadavist intravenous contrast without complication.. FINDINGS: CERVICAL SPINE: Post contrast imaging is very limited by artifact within the cervical spine. There are no cord signal changes when accounting for artifact. Cervical alignment is normal. The vertebral body heights are maintained. The disc volumes are preserved. There is no bone marrow edema. There are no acute fractures. Cervical arterial flow voids are maintained. No significant cervical disc herniations. Slight annular disc bulges at C3-C4, C5-C6, and C6-C7. Mild facet arthropathy throughout the cervical spine. No severe central canal stenosis and no severe foraminal stenosis within the cervical spine. A few small foraminal perineural cysts are noted. Partially imaged large exophytic left thyroid lobe nodule along the lower pole of the left thyroid measuring at least 3.1 cm that would be better assessed with thyroid ultrasound. THORACIC SPINE: There are 12 rib bearing thoracic type vertebral bodies. Thoracic alignment is maintained. Vertebral body heights are preserved. There is no bone marrow edema. There are no acute fractures. No thoracic cord signal changes accounting for artifact. No enhancing thoracic cord lesions. No pathologic intrathecal enhancement when accounting for CSF flow artifact. Small shallow paracentral disc protrusions at the mid to lower thoracic levels mildly narrow the central canal. Multilevel endplate osteophytes. No severe central canal stenosis and no severe foraminal stenosis within the thoracic spine. There are multilevel perineural cysts, the largest on the right side at T5-T6. MR/MR cervical spine wo/w con IMPRESSION: - No lesions are appreciated within the cervical nor the thoracic spinal cord. Postcontrast imaging of the cervical spine is very limited by the degree of artifact. Mild spondylosis within the cervical and thoracic spine. No severe central canal stenosis and no severe foraminal stenosis. - Partially imaged large exophytic left thyroid lobe nodule along the lower pole of the left thyroid measuring at least 3.1 cm that would be better assessed with thyroid ultrasound.
[2023-09-17] MEDS: gadobutroL 10 ML VIAL IVPUSH (16:29)
== END 2023-09-17 14:06 | disposition home or self-care (01) ==
LOC: HO.MRI 14:05
PROVIDERS: PCP Nurse Practitioner Family; Visit Provider Psychiatry & Neurology Neurology
DX: G35 Multiple sclerosis (principal)
CPT/HCPCS: 72156; 72157; A9585

== ENCOUNTER 2024-04-07 13:49 | Outpatient (AMB) | payer OTHER, SELFPAY ==
--- NOTE | 2024-04-07 13:50 | MHC.PC.OV ---
Vital Signs 04/07/24 13:53 Height 5 ft 3 in Weight 200 lb 6 oz BMI 35.5 BP 112/70 Blood Pressure Location Lt brachial Position Sitting Pulse 107 H Pulse Source Pulse Oximeter Pulse Oximetry (%) 100 Oxygen Delivery Method Room Air Intake Visit Reasons: establish care Intake Note: Patient is a new patient here to establish care for MS, HTN, Morbid obesity and high cholesterol. Transferring care from Dr. ethan Mullen. Medical records have been requested today. 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 Accompanied by: Self / Same As Patient Allergies celecoxib [From CELEBREX] Allergy (Severe, Verified 04/07/24 13:57) RASH AND DIFFICULTY BREATHING fluvoxamine [From LUVOX] Allergy (Severe, Verified 04/07/24 13:57) GRAND MAL SEIZURE acetaminophen [From TYLENOL] Allergy (Intermediate, Verified 04/07/24 13:57) LIVER TOX sertraline [From ZOLOFT] Allergy (Intermediate, Verified 04/07/24 13:57) ABD PAIN Medication List - Last Reconciled 04/07/24 by Pascale Murray PA-C atorvastatin 10 mg PO DAILY cholecalciferol (vitamin D3) 50 mcg PO DAILY fluticasone propion-salmeterol 500-50 mcg/dose 1 ea inhalation BID furosemide 20 mg PO DAILY hydrochlorothiazide 25 mg PO DAILY ibuprofen 800 mg PO TID losartan 25 mg PO DAILY meclizine 12.5 mg PO TID metformin ER 500 mg PO DAILY omeprazole 20 mg PO DAILY tranylcypromine 40 mg PO QAM valacyclovir 1,000 mg PO TID Tobacco use date assessed: 04/07/24 Fall risk assessment: 2 + Falls in past year Last assessed Fall Risk: 04/07/24 Dental Screening Dental Screen Date: 04/07/24 Did you have a dental visit in the last 12 months?: No Did you have a dental problem in the last 6 months where you did not have access to dental care?: Yes Was dental information given to patient?: Yes HPI establish care HPI Details 68-year-old female with past medical history of multiple sclerosis coming to the office with the 1st time. In review of the notes she has been following with [facility] for regular infusions for multiple sclerosis. She has a mammogram scheduled at the end of this month. Patient was previously being seen by Dr. Mullen through [facility]. She also follows with Neurology with Dr. Sanon for her multiple sclerosis diagnosis. She also follows with Dr. Tran for routine gynecological exams. She does have several concerns today the 1st being she has chronic left-sided rib pain and has a previous diagnosis of costochondritis that has been ongoing for the past 3 years and worsening over the last year. She has been struggling with a diagnosis of vertigo and has been given meclizine which she states does help but still continues to have dizziness and room spinning sensation. She recently had a fall last month as a result of this vertigo and has had continued neck pain since the fall she denies any head strike or loss of consciousness. She also mentions her right lower extremity we will occasionally have swelling and pain on the anterior aspect of the leg. She has been evaluated for this in the past and DVT has been ruled out and she was diagnosed with venous insufficiency and started on furosemide as needed. [facility] Medical History Asthma Bipolar 2 disorder Blindness Ectopic Herniated disc MDD (major depressive disorder) PTSD (post-traumatic stress disorder) Surgical History Hx of rotator cuff surgery Social History Housing: Apartment Alcohol intake: current Alcohol intake frequency: a few times a week Patient Tobacco Use Status: Former Tobacco user (Pt quit round her 41 year of age) Tobacco use type: Cigarette e-Cigarette/Vaping Use: Never Used service: No Current occupational status: retired and disabled Gender identity: Female Cognitive needs: Yes Hearing needs: Yes (had hearing test two year ago pt states 25% of hearing loss.) Vision needs: Yes Questionnaire PHQ-9 Over the last 2 weeks, how often have you been bothered by any of the following problems? 1. Little interest or pleasure in doing things: nearly every day 2. Feeling down, depressed, or hopeless: more than half the days 3. Trouble falling or staying asleep, or sleeping too much: nearly every day 4. Feeling tired or having little energy: more than half the days 5. Poor appetite or overeating: nearly every day 6. Feeling bad about yourself - or that you are a failure or have let yourself or your family down: more than half the days 7. Trouble concentrating on things, such as reading the newspaper or watching television: nearly every day 8. Moving or speaking so slowly that other people could have noticed. Or the opposite - being so fidgety or restless that you have been moving around a lot more than usual: nearly every day 9. Thoughts that you would be better off or of hurting yourself in some way: several days Total score: 22 Depression Screening Interpretation: Positive (Referral placed to counseling) Depression Screening Follow-up: Existing condition Depression Screening Done: Yes 85432 - PHQ-9 Billing: Yes Source: Developed by Drs. Germán Hernandez, Henrietta Vitale, Danis Ha and colleagues, with an educational terence from [employer]. Thrive Questionnaire Date Thrive assessed: 04/07/24 I am a: Patient What is your living situation today?: I have a steady place to live Within the past 12 months, did the food you bought not last and you didn't have the money to get more?: Never true Within the past 12 months, did you worry whether your food would run out before you got money to buy more?: Never true Do you have trouble paying for medicines?: No Do you have trouble getting transportation to medical appointments?: No Do you have trouble paying your heating and electricity bill?: No Do you have trouble taking care of your child, family member or friend?: No Do you have trouble with day-to-day activities such as bathing, preparing meals, shopping, managing finances, etc.?: No Are you currently unemployed and looking for a job?: No Are you interested in more education?: No Please select the resources that you would like help with: None THRIVE Score: 0 AUDIT C Alcohol Use Questionnaire (AUDIT-C) 1. How often do you have a drink containing alcohol?: Monthly or less 2. How many drinks containing alcohol do you have on a typical day when you are drinking?: 1 or 2 3. How often do you have six or more drinks on one occasion?: Never Total Score: 1 TRAV-7 AMB Questionnaire TRAV-7 Date TRAV - 7 assessed: 04/07/24 Feeling nervous, anxious, or on edge: 3 = Nearly every day Not being able to stop or control worryin = Nearly every day Worrying too much about different things: 3 = Nearly every day Trouble relaxin = Nearly every day Being so restless that it is hard to sit still: 3 = Nearly every day Becoming easily annoyed or irritable: 2 = More than half the days Feeling afraid as if something awful might happen: 3 = Nearly every day Total TRAV-7 score (0-4 normal; 5-9 mild; 10-14 moderate; 15-21 severe): 20 Source: Developed by Drs. Germán Hernandez, Henrietta Vitale, Danis Ha and colleagues, with an educational terence from [employer]. TRAV-7 Assessment Billing TRAV-7 Assessment Tool: TRAV-7 Assessment 37487 Review of Systems Const Denies body aches, Denies fatigue, Denies fever(s), Denies frequent falls, Denies headache(s) and Denies weakness Eyes Reports no additional complaints and Denies change in vision ENT Denies dysphagia, Denies dizziness, Denies facial pain, Denies headache(s), Denies nasal congestion and Denies odynophagia Card Denies chest pain, Denies syncope, Denies irregular heart rhythm, Denies leg edema, Denies lightheadedness and Denies dyspnea Resp Denies cough and Denies dyspnea GI Denies constipation, Denies dysphagia, Denies dyspepsia, Denies diarrhea, Denies nausea, Denies odynophagia and Denies vomiting Denies urinary frequency, Denies dysuria, Denies urinary hesitancy and Denies urinary urgency Musc Denies back pain and Denies myalgias Skin/Breast Reports system reviewed and no additional complaints, except as documented Neuro Denies dizziness, Denies syncope, Denies frequent falls, Denies headache(s) and Denies weakness Psych Reports no additional complaints Endo Denies fatigue Physical exam (Primary Care) Vital Signs: Last Vital Signs Pulse 107 H 04/07/24 13:53 BP 112/70 04/07/24 13:53 Pulse Ox 100 04/07/24 13:53 Oxygen Delivery Method Room Air 04/07/24 13:53 BMI result Body Mass Index 35.5 Tobacco/Smoking Status: Tobacco use Status Tobacco use date assessed 04/07/24 04/07/24 13:59 Patient Tobacco Use Status Former Tobacco user (Pt quit 04/07/24 13:59 round her 41 year of age) Tobacco use type Cigarette 04/07/24 13:59 e-Cigarette/Vaping Use Never Used 04/07/24 13:59 PHQ-9: PHQ-9 Score PHQ-9: Total score 22 04/07/24 14:14 Depression Screening Interpretation: Positive (Referral placed to counseling) Depression Screening Follow-up: Existing condition Thrive Assessment: Date of Thrive Assessment Date Thrive assessed 04/07/24 04/07/24 14:11 Const General: cooperative, healthy appearing, comfortable and no acute distress Orientation/consciousness: patient oriented x3 HENMT Head: Yes normocephalic Ears: hearing grossly normal bilaterally General nose exam: Normal external nose present Eyes General: appearance normal, both eyes and all related structures Conjunctivae: conjunctivae normal Neck Other: Tenderness to palpation of both sides of the neck. Range of motion limited due to fear of inducing vertigo episode Neck: Yes no lymphadenopathy Chest Other: Pain to palpation over left intercostal spaces Resp Effort & Inspection: normal respiratory effort Auscultation: clear to auscultation bilaterally, no crackles, no rales, no rhonchi and no wheezes Cardio Rate: regular rate Rhythm: regular rhythm Skin General skin exam: no rashes or lesions noted Neuro General: patient oriented x3 Gait exam (Neuro): Normal gait present Extrem Other: Pain to palpation over anterior aspect of right lower extremity. No swelling, redness, warmth bilateral calves. Pulses strength and sensation intact in bilateral lower extremities General: Yes normal to inspection, Yes full ROM and No edema Psych Affect: normal affect Attitude: cooperative Insight: Good insight present (Psych) Judgement: Good judgement present (Psych) Results AMB Hemoglobin A1c AMB Hemoglobin A1c 6.7 % Last Edit by CARIDAD Ngo on 04/07/24 14:40 Coding Level of Care Code New Pt Level 4 (57865) Diagnoses Multiple sclerosis G35 Family history of breast cancer Z80.3 BPPV (benign paroxysmal positional vertigo) H81.10 Venous insufficiency I87.2 Thyroid nodule E04.1 Generalized anxiety disorder F41.1 Diabetes mellitus E11.9 Hypercholesterolemia E78.00 Hypertension I10 Neck strain S16.1XXA Costochondritis M94.0 Additional Codes TRAV-7 Assessment Billing - TRAV-7 Assessment Tool: TRAV-7 Assessment [id number] ([id number]) PHQ-9 - 01336 - PHQ-9 Billing: Yes ([id number]) Assessment & Plan Assessment & Plan (1) Multiple sclerosis: Comment: Dr. Sanon Code(s): G35 - Multiple sclerosis Category: Medical Plan: Patient is following with Dr. Sanon and having regular infusions. Continue to follow with Neurology (2) Family history of breast cancer: Code(s): Z80.3 - Family history of malignant neoplasm of breast Category: Medical Plan: Going for yearly mammograms next mammogram scheduled for 04/26/2024. (3) BPPV (benign paroxysmal positional vertigo): Code(s): H81.10 - Benign paroxysmal vertigo, unspecified ear Category: Medical Plan: Patient has been given meclizine and has been taking this medication up to 3 times a day and does find it helps. Referral placed to physical therapy for vestibular therapy at this time. (4) Venous insufficiency: Code(s): I87.2 - Venous insufficiency (chronic) (peripheral) Category: Medical Plan: Patient previously diagnosed with venous insufficiency in the right leg. Patient having pain over the anterior aspect of the right lower extremity presentation not concerning for DVT at this time due to lack of swelling, redness and warmth. Symptoms will wax and wane and are not consistent. Ordered for duplex ultrasound for further evaluation of venous insufficiency. Advised to continue on her furosemide. (5) Thyroid nodule: Code(s): E04.1 - Nontoxic single thyroid nodule Category: Medical Plan: Patient has history of thyroid nodules being followed by endocrinology at this time. Ordered for repeat thyroid function testing. (6) Generalized anxiety disorder: Code(s): F41.1 - Generalized anxiety disorder Category: Medical Plan: Patient having increased anxiety and depression previously had a counselor but due to insurance has lost her counselor at this time. Referral placed to [facility]. (7) Diabetes mellitus: Code(s): E11.9 - Type 2 diabetes mellitus without complications Category: Medical Plan: Decrease the amount of carbohydrates such as pasta, bread, rice, and potatoes and limit the amount of sweets. Although fruits are generally healthy they should be eaten in moderation as they are still high in sugar. Hemoglobin A1c goal of less than 7%. A1c 6.7% today continue with dietary modification and continue on metformin. (8) Hypercholesterolemia: Code(s): E78.00 - Pure hypercholesterolemia, unspecified Category: Medical Plan: Avoid foods that are high in cholesterol such as red meat, fried foods, eggs and baked goods. Triglyceride goal of less than 150 and LDL goal of less than 100. Continue on atorvastatin 10 mg. Ordered for updated cholesterol labs (9) Hypertension: Code(s): I10 - Essential (primary) hypertension Category: Medical Plan: Continue on current blood pressure medication. Avoid salt intake and encourage healthy diet and regular exercise. (10) Neck strain: Code(s): S16.1XXA - Strain of muscle, fascia and tendon at neck level, initial encounter Category: Medical Plan: Exam most consistent with a neck strain advised patient to do gentle stretching of the neck and use ibuprofen as needed for pain. Declining lidocaine patches at this time, given methocarbamol to be used as needed for nighttime pain. Discussed with the patient that this medication may make her drowsy and to use caution getting up in the middle of the night while using this medication. (11) Costochondritis: Code(s): M94.0 - Chondrocostal junction syndrome [Tietze] Category: Medical Plan: Patient having chronic costochondritis. Tenderness to palpation over left ribs spaces. Declining and x-ray at this time as she has had an x-ray done in the past. Advised patient to continue to monitor her symptoms and reviewed red flag symptoms and when to present for re-evaluation. Can consider referral to pain management if pain persists or worsens. Plan Ordered for blood work and we will have patient follow up in 2 months for annual physical. This note was constructed using voice recognition software. While every effort has been made to ensure accuracy and dental chairside assistant, still areas may have been included sometimes these areas may affect the content or meeting of the given symptoms. Total time spent caring for the patient today was 30 minutes. This includes time spent before the visit reviewing the chart, time spent during the visit, and time spent after the visit and documentation. Orders: Orders AMB Hemoglobin A1c Today Z13.9 - Encounter for screening, unspecified Complete Blood Count Auto Diff Today G35 - Multiple sclerosis, Z00.00 - Encounter for general adult medical examination without abnormal findings Free T4 (Free Thyroxine) Today E04.1 - Nontoxic single thyroid nodule Vitamin B12 and Folate Today G35 - Multiple sclerosis Vitamin D 25-OH Total Today G35 - Multiple sclerosis PT Evaluation and Treatment Today H81.10 - Benign paroxysmal vertigo, unspecified ear US venous duplex LE RT Today I87.2 - Venous insufficiency (chronic) (peripheral) Comprehensive Met. Panel Today G35 - Multiple sclerosis, Z00.00 - Encounter for general adult medical examination without abnormal findings TSH reflex Free T4 Today E04.1 - Nontoxic single thyroid nodule Lipid Panel Today E78.00 - Pure hypercholesterolemia, unspecified Referrals Counseling Referral F41.1 - Generalized anxiety disorder Cologuard Test Z12.11 - Encounter for screening for malignant neoplasm of colon Medications: New atorvastatin 10 mg PO DAILY 90 tabs 2RF cholecalciferol (vitamin D3) 50 mcg PO DAILY 90 tabs 1RF furosemide 20 mg PO DAILY 90 tabs 2RF hydrochlorothiazide 25 mg PO DAILY 90 tabs 2RF ibuprofen 800 mg PO TID 30 days PRN 90 tabs 0RF pain losartan 25 mg PO DAILY 90 tabs 2RF meclizine 12.5 mg PO TID 30 days PRN 90 tabs 0RF dizziness omeprazole 20 mg PO DAILY 90 caps 2RF lidocaine 5% leave on most painful area for up to 12 hrs 1 patch topical DAILY 30 ea 0RF methocarbamol 500 mg PO BEDTIME PRN 14 tabs 0RF pain fluticasone propion-salmeterol 500-50 mcg/dose 1 ea inhalation BID 60 ea 2RF metformin ER 500 mg PO DAILY 90 tabs 3RF
[2024-04-07 13:53] VITALS: BP 112/70; PULSE 107; O2SAT 100; BMI 35.5
--- OUTSIDE RECORDS SUMMARY | 2024-04-09 15:57 | XMS_ITS | Continuity of Care Document ---
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 Plan of Treatment Reminders Order Date Submit Date Provider Last Modified By Organization Details Last Modified Time Details Appointments None record ed. Lab None record ed. Referral None record ed. Procedures None record ed. Surgeries None record ed. Imaging None record ed. Medication Orders None record ed. Patient TargetsNo targets recorded. Patient InstructionsNo instructions recorded. Reason for Referral None Reported. Results Created Date Observation Date Name Description Value Unit Range Abnormal Flag Note LastModifiedBy Organization Detail LastModifiedTime 03/03/20 24 03/03/2024 elect valeria diogr am No observ ation record ed. [email or web address] [address], [place], [address], 03/03/2024 20:32:30 Result Notes None recorded. Medical Equipment None Reported. Allergies Allergen ID Allergen Name Allergen Category Reaction Reaction Severity Criticality Documentation Date Start Date Code Code System Note Provider Name and Address Organization Details Recorded Time 09374 Celebrex medicatio n Not available Not available Not available 03/03/2024 84543 7 RxNorm Not Available [facility] - production 4 11:11:35 fluvoxami ne maleate medicatio n Not available Not available Not available 03/03/202424485 3 RxNorm Not Available [facility] - production 4 11:11:35 64906 Zoloft medicatio n Not available Not available Not available 03/03/2024 33876 RxNorm Kathy Andrew MD [address] [place] [address],[address], [place], [address] , [facility] 15:50:43 36247 Tylenol medicatio n Not available Not available Not available 03/03/2024 3 RxNorm Brandon nt is not truly aller gic to Tylen ol altho ugh it is on her list. She had unint entio christian overd osed on Tylen ol and it cause d liver damag e so she was told to avoid it in the futur e Kathy Andrew MD [address] [facility],[address], [place], [address], [facility] 4 15:51:25 Medications Name Sig Start Date Stop Date Status Note LastModified by Organization Details LastModified Time metformin 500 mg tablet TAKE 1 TABLET BY MOUTH TWICE DAILY active Not Available Not Available No t Available atorvastatin 10 mg tablet TAKE 1 TABLET BY MOUTH DAILY active Not Available Not Available No t Available ibuprofen 800 mg tablet active Not Available Not Available No t Available valacyclovir 1 gram tablet TAKE 1 TABLET BY MOUTH 3 TIMES A DAY FOR 10 DAYS active Not Available Not Available No t Available tranylcypromi ne 10 mg tablet TAKE 2 TABLETS EVERY MORNING AND 1 IN THE AFTERNOON active Not Available Not Available No t Available clonazepam 0.5 mg tablet TAKE ONE-HALF TABLET BY MOUTH NEEDED FOR INSMONIA active Not Available Not Available No t Available meclizine 12.5 mg tablet active Not Available Not Available Not Available losartan 25 mg tablet TAKE 1 TABLET BY MOUTH DAILY active Not Available Not Available No t Available omeprazole 20 mg capsule,delay ed release active Not Available Not Available N ot Available hydrochloroth iazide 25 mg tablet TAKE 1 TABLET BY MOUTH DAILY active Not Available Not Available No t Available furosemide 20 mg tablet TAKE 1 TABLET BY MOUTH DAILY NEEDED LEG SWELLING active Not Available Not Available No t Available metformin ER 500 mg tablet,extend ed release 24 hr TAKE 1 TABLET BY MOUTH DAILY active Not Available Not Available No t Available hydrochloroth iazide 12.5 mg tablet active Not Available Not Available No t Available cholecalcifer ol (vitamin D3) 50 mcg (2,000 unit) tablet TAKE 1 TABLET BY MOUTH DAILY active Not Available Not Available No t Available Vitals Date Recorded Body weight Body temperature Body height Heart rate Oxygen saturation Oxygen saturation in Arterial blood by Pulse oximetry Respiratory rate Systolic blood pressure Diastolic blood pressure Provider Name and Address Organization Details Last Updated DateTime 4 02692.4 g 98.4 [degF] 160.02 cm 118 /min 98 % 98 % 18 /min 137 mm[Hg] 78 mm[Hg] Not Available [facility] - production 13:03:47 Social History None recorded. Functional Status None recorded. Mental Status None recorded. Family History Nothing Reported. Medical History No medical history recorded. Gynecological HistoryNo gynecological history recorded. Obstetrics History GPAL:G 0 P 0 0 0 0 Past Encounters Encounter ID Performer Location Encounter Start Date Encounter Closed Date Diagnosis/Indication Diagnosis SNOMED-CT Code Diagnosis ICD10 Code [id number] Kathy Andrew MD [facility] [address] [place] [phone] 03/03/2024 11:55:19 03/03/2024 23:43:48 Chest discomfort 757426086 R07.89 [id number] Agata Steel MD Main - [facility] [address] [place] [phone] 03/18/2024 13:03:45 03/19/2024 10:11:15 Vertigo 323023744 R42 Health Concerns Section Related Observation LastModified by Organization Detai ls LastModified Time None Recorded Concern Status LastModified by Organization Details LastModified Time None Recorded Payers Encounter Date Sequence Insurance Name Policy Number Policy [place] Covered Member ID [place] Member ID Guarantor Name 03/18/2024 1 [facility] - DOS ON OR AFTER 2022 - MEDICARE [place]ANTAGE [place]PLACEMENT/ADV ANTAGE - PPO) Brandy Wise [id number] Brandy Wise Notes Date Note Type Note Provider Name and Address Organization Details Recorded Time 03/18/2024 text/html CRC Nurse Triage Notes (Mounika Grant): Reason For Request: Patient has extreme Vertigo - can't sand or sit. room spinning. This is activated w/ any movement. Chief Complaints: Dizziness PMH: Multiple Sclerosis, Hypertension Comments: Patient calling in to place a referral, identified via name and . 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 In addition to allergies she has one other she cannot recall at this time. Patient with increased dizziness since waking up this morning around 6a, she took meclizine not too long ago with no relief. She states this is not her typical vertigo feeling, and was incontinent of urine this morning due to the dizziness. She states she feel like, I am on the worse carnival ride and can't get off . Nothing relieves the intense dizziness, movement does intensify the feeling of feeling off balance, per patient she is off balance at baseline due to her MS, but it is worse at present. She attempted to eat something and take her morning medications, and that did not improve her symptoms. Her legs feel fuzzy , she denies any unilateral weakness or an increase from baseline weakness, no numbness or tingling, no chest pain or shortness of breath, no n/v, no headache. BP while on the phone 133/90, HR 119. 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 RED flags discussed, and will seek ED if recommended by medic and [facility]. ..................... ..................... ..................... ..................... ..................... ..................... ............... Skein Drier Note From Jhonatan Garcia: SANDIP makes pt contact. She answers the door and lets [facility]H inside her small apartment. She is ambulating slowly and using furniture to help steady herself as she moves. She is not pale or ashen, her skin is WPD, there is no facial droop or one-sided weakness or slurred speech noted. Pt is not in acute respiratory distress and she is not bleeding anywhere. She clears a chair for SANDIP to sit and moves herself to her cushioned chair in her living area and puts her feet up and rests her head on her arm. She recounts for [facility] the events leading up to her call, saying she awoke at around 0600 w/ severe vertigo. She endorses a hx of vertigo and she is not concerned w/ the vertigo itself, but rather the severity of this particular episode. She endorses taking her prescribed meclizine between 0700 and 0800, but she only took 12.5mg and has not had any relief of symptoms. She tried to eat breakfast, but was unable to hold it down and she says the vertigo has caused her to be incontinent, which is not usual for her. She denies any acute CP, SOB, ABD pain, and she denies recent trauma that includes a fall w/ head strike. She also denies recent changes to any of her medications. She consents to evaluation and treatment today.[facility] gathers vital signs and pt is physically assessed. Nothing remarkable is noted upon physical assessment. Eye exam is confounded by pt's inability to keep her eyes open comfortable for long. No tinnitus or ISSA are endorsed at this time. [facility] contacts [facility] and discusses the above assessment findings. [facility] makes several suggestions for the pt to try including taking 25mg-50mg of meclizine, taking one of her prescribed clonazepam, and progressing to IV benadryl if pt feels she needs it. [facility] discusses all options w/ the pt up to and including transport to the ED. Pt expresses a desire to try the increased dose of meclizine. [facility] advises pt of s/s to be aware of up to and including cp, sob, severe issa, n/v/d, or lack of improvement or a worsening of her current s/s. She is instructed to call back or call 911 and go to the nearest ED. Pt says she understands and thanks [facility] for coming.[facility] is clear. Report completed by ELIAS Garcia [id number]. ..................... ..................... ..................... ..................... ..................... ..................... ............... [facility] Consulted: Agata Steel ..................... ..................... ..................... ..................... ..................... ..................... ............... Disposition: Fulfilled Agata Steel MD [address] [facility],[address], [place], [address], [employer] 03/18/2024 19:27:25 OBGyn Episode No OBEpisode recorded.
--- OUTSIDE RECORDS SUMMARY | 2024-04-09 15:57 | XMS_ITS | Continuity of Care Document ---
Author Organization [facility] Address [address] [place] [phone] Care Team Providers Care Archival Studies Professor Name Role Phone HIM CCA OTHER Assessment Encounter Date Assessment Date Assessment LastModified by Organization Details LastModified Time 03/03/2024 03/03/2024 I provided real -time medical direction via phone for this encounter, and was available for additional phone based assistance as needed. I have reviewed and agree with the Assessment and Plan as documented by the Sorting Machine Attendant. We discussed the diagnostic uncertainty of home visits and the risk associated with this. The patient given the opportunity to ask questions. Advised if develops new or worsening CP/severe SOB/turning blue/uncontrolle d n/v/d/ AMS/ syncope/worsenin g calf pain or swelling to the leg/ hi fever to call 911-she verbalized understanding of instructions to the medic Not available 03/03/2024 20:32:02 Plan of Treatment Reminders Order Date Submit Date Provider Last Modified By Organization Details Last Modified Time Details Appointments None recorded. Lab BMP, serum or plasma 2023 [email or web address], [address], 20:32:17 Referral None recorded. Procedures None recorded. Surgeries None recorded. Imaging electrocard iogram [email or web address], [address], 20:32:34 Medication Orders None recorded. Patient TargetsNo targets recorded. Patient InstructionsNo instructions recorded. Reason for Referral None Reported. Results Created Date Observation Date Name Description Value Unit Range Abnormal Flag Note LastModifiedBy Organization Detail LastModifiedTime 03/03/2003/03/2024 vernon cui am No observ ation record ed. [address], [address], 03/03/2024 20:32:30 Result Notes None recorded. Procedures Surgical History None recorded. Imaging Results Imaging Date Name Status LastModified by Organization Details LastModified Time 03/03/2024 electrocardiogram completed [email or web address], [address], 03/03/2024 20:32:30 Procedure Notes None recorded. Medical Equipment None Reported. Allergies Allergen ID Allergen Name Allergen Category Reaction Reaction Severity Criticality Documentation Date Start Date Code Code System Note Provider Name and Address Organization Details Recorded Time 18204 Celebrex medicatio n Not available Not available Not available 03/03/202460684 7 RxNorm Not Available [facility] - production 4 11:11:35 85140 fluvoxami ne maleate medicatio n Not available Not available Not available 03/03/202456229 3 RxNorm Not Available [facility] - production 4 11:11:35 19017 Zoloft medicatio n Not available Not available Not available 03/03/2024 42266 RxNorm Kathy Andrew MD [address] [place] [address],[address], [place], [address] , [facility] 4 15:50:43 11593 Tylenol medicatio n Not available Not available Not available 03/03/202413537 3 RxNorm Brandon nt is not truly aller gic to Tylen ol altho ugh it is on her list. She had unint entio christian overd osed on Tylen ol and it cause d liver damag e so she was told to avoid it in the futur e Kathy Andrew MD [address] [place] [address],[address], [place], [address] , [facility] 4 15:51:25 Medications Name Sig Start Date [...] No t Available Vitals Date Recorded Body height Heart rate Respiratory rate Body temperature Oxygen saturation Oxygen saturation in Arterial blood by Pulse oximetry Body weight Systolic blood pressure Diastolic blood pressure Provider Name and Address Organization Details Last Updated DateTime 4 160.02 cm 115 /min 16 /min 98.7 [degF] 96 % 96 % 79052.4 g 149 mm[Hg] 87 mm[Hg] Not Available [employer] [facility] [employer] 4 11:55:25 Social History None recorded. Functional Status None recorded. Mental Status None recorded. Family History Nothing Reported. Medical History No medical history recorded. Gynecological HistoryNo gynecological history recorded. Obstetrics History GPAL:G 0 P 0 0 0 0 Past Encounters Encounter ID Performer Location Encounter Start Date Encounter Closed Date Diagnosis/Indication Diagnosis SNOMED-CT Code Diagnosis ICD10 Code [id number] Kathy Andrew MD [facility] - [facility] [address] [place] [address] 03/03/2024 11:55:19 03/03/2024 23:43:48 Chest discomfort 331906135 R07.89 Health Concerns Section Related Observation LastModified by Organization Detai ls LastModified Time None Recorded Concern Status LastModified by Organization Details LastModified Time None Recorded Payers Encounter Date Sequence Insurance Name Policy Number Policy [place] Covered Member ID [place] Member ID Guarantor Name 03/03/2024 1 [facility] - DOS ON OR AFTER 2022 - MEDICARE [place]AGE [place] RE[place]/ADV ANTAGE - PPO) Brandy Wise [id number] Brandy Wise Notes Date Note Type Note Provider Name and Address Organization Details Recorded Time 03/03/2024 text/html CRC Nurse Triage Notes (Pilar Briones): Chief Complaints: Chest pain, Leg pain/swelling, Heart rate problems PMH: Multiple Sclerosis, Hypertension Comments: Sample Case Porter verified the member's name//address and phone number. Member is a 68 yr old female , a/o3 , legally blind The patient is calling because her PCP appointment was canceled. She now does not have a PCP as they are not in the network, but she is working on [employer] in March. She has a Migraine that can be related to her MS; she was unable to raise her head up for 4-5 days. She has intense pain and sensitivity to light and sound. She is having nausea but no vomiting. She is having chest pain , left side does not radiate does not get relieved. She feels that is is stress related and does not feel it is chest pain. She does have venous insufficiency, takes lasix. She has pain and swelling in her right leg. Her PCP recently prescribed her the lasix in addition to her hydrochlorothiazid e. She feels the pain is centered, she does not feel it is a DVT As she is on ASA . She has her leg elevated but is unable to wear a compression stocking due to her MS. She has recently had a d-dimer and was found to be normal. Recommended the ER but is refusing at this time. She has a list of allergy and will give the medic Education provided on the response time and the member was advised to monitor reported s/s and seek emergency treatment if needed Sorting Machine Attendant Organization Information for [facility] Neal Legal Name: [employer]? ? Address: [address] [place] [address], [place] [address], Fleet Operations Manager: Migue Reddy MD CLIA No.: [id number] Sorting Machine Attendant POC Test Results from [facility] - DEE EKG (12:26:05) EKG test performed. Attachments uploaded as part of this test result can be found under Documents section. iSTAT Chem8+ (12:38:57) Na: 139 mEq/L K: 4.1 mEq/L Cl: 100 mEq/L iCa: 1.18 mmol/L TCO2: 31 mmol/L Glu: 101 mg/dL BUN: 24 mg/dL Crea: 0.9 mg/dL Hct: 44 % Hb: 15.0 g/dL A .................. .................. .................. .................. .................. .................. .................. ............... Sorting Machine Attendant Note From Monroe Neal: [employer] visit for female pt. Pt presents with a few different complaints. Pt has been having right calf pain, in addition to some mild chest pressure. Calf pain has been present for a least a few months with workup a few months ago with PCP doing d-dimer and was supposed to have follow up a couple months ago but had an insurance lapse. Chest pressure has been occurring on and off and patient has been attributing it to anxiety. No chest pain at current time. V/S taken as listed. Pt afebrile. Lung sounds clear bilaterally. Abdomen soft and non tender. Calf examined and not obviously swollen compared to unaffected leg. Point tenderness on palpation of mid calf. [facility] with [facility] [place]. Andrew who ordered EKG and BMP. Blood drawn and BMP results sent to [facility] along with EKG tracing. Dr. Andrew noted t wave inversion and q wave in lead III. Pt explained limitations of workup at home for her complaints and expressed that pt is a good candidate for an atypical presentation of ACS given her comorbidities. Reviewed red flags for ED. Pt education provided. .................. .................. .................. .................. .................. .................. .................. ............... [facility] Consulted: Kathy Andrew .................. .................. .................. .................. .................. .................. .................. ............... Disposition: FulfilledSEGMD: As above. Patient currently has no headache or chest pain. She describes her left chest pressure as a tightness and it is exacerbated with anxiety relieved when she calms down. It is nonradiating and she has no shortness of breath, nausea or vomiting or diaphoresis with it. Although she is allergic to Celebrex she has been taking ibuprofen for her headache, chronic discogenic pain and her leg pain. She describes her calf pain as a numbness and buzzing. She states she had a workup including a D-dimer in October 2023 but none since Kathy Andrew MD [address] [facility],[address], [place], [address], [email or web address] 03/03/2024 20:33:09 OBGyn Episode No OBEpisode recorded.
--- OUTSIDE RECORDS SUMMARY | 2024-04-09 15:57 | XMS_ITS | Data Portability ---
Author Organization [employer] [facility] [place] [facility] Address [address] [place] [phone] Care Team Providers Care [employer] Medical Sergeant Name Role Phone HIM CCA OTHER Assessment Encounter Date Assessment Date Assessment LastModified by Organization Details LastModified Time 03/03/2024 03/03/2024 I provided real -time medical direction via phone for this encounter, and was available for additional phone based assistance as needed. I have reviewed and agree with the Assessment and Plan as documented by the Automatic Presser. We discussed the diagnostic uncertainty of home visits and the risk associated with this. The patient given the opportunity to ask questions. Advised if develops new or worsening CP/severe SOB/turning blue/uncontrolle d n/v/d/ AMS/ syncope/worsenin g calf pain or swelling to the leg/ hi fever to call 911-she verbalized understanding of instructions to the medic [email or web address] Not available 03/03/2024 20:32:02 Plan of Treatment Reminders Order Date Submit Date Provider Last Modified By Organization Details Last Modified Time Details Appointments None recorded. Lab BMP, serum or plasma [email or web address], [id number], 20:32:17 Referral None recorded. Procedures None recorded. Surgeries None recorded. Imaging electrocard iogram [email or web address], [address], 20:32:34 Medication Orders None recorded. Patient TargetsNo targets recorded. Patient InstructionsNo instructions recorded. Reason for Referral None Reported. Results Created Date Observation Date Name Description Value Unit Range Abnormal Flag Note LastModifiedBy Organization Detail LastModifiedTime 03/03/2003/03/2024 vernon cui am No observ ation record ed. [email or web address] [address], [address], 03/03/2024 20:32:30 Result Notes None recorded. Procedures Surgical History None recorded. Imaging Results Imaging Date Name Status LastModified by Organization Details LastModified Time 03/03/2024 electrocardiogram completed [email or web address] [address], [address], 03/03/2024 20:32:30 Procedure Notes None recorded. Medical Equipment None Reported. Allergies Allergen ID Allergen Name Allergen Category Reaction Reaction Severity Criticality Documentation Date Start Date Code Code System Note Provider Name and Address Organization Details Recorded Time 80032 Celebrex medicatio n Not available Not available Not available 03/03/202447884 7 RxNorm Not Available [facility] - production 4 11:11:35 94656 fluvoxami ne maleate medicatio n Not available Not available Not available 03/03/202419925 3 RxNorm Not Available [facility] - production 4 11:11:35 71071 Zoloft medicatio n Not available Not available Not available 03/03/2024 35297 RxNorm Kathy Andrew MD [address] [place] [address],[address], [place], [address] , [employer] 4 15:50:43 93703 Tylenol medicatio n Not available Not available Not available 03/03/202432341 3 RxNorm Brandon nt is not truly aller gic to Tylen ol altho ugh it is on her list. She had unint entio christian overd osed on Tylen ol and it cause d liver damag e so she was told to avoid it in the futur e Kathy Andrew MD [address] [place] [address],[address], [place], [phone], [employer] 4 15:51:25 Medications Name Sig Start Date [...] /min 98.7 [degF] 96 % 96 % 53553.4 g 149 mm[Hg] 87 mm[Hg] Not Available [employer] 4 11:55:25 Date Recorded Body weight Body temperature Body height Heart rate Oxygen saturation Oxygen saturation in Arterial blood by Pulse oximetry Respiratory rate Systolic blood pressure Diastolic blood pressure Provider Name and Address Organization Details Last Updated DateTime 4 64450.4 g 98.4 [degF] 160.02 cm 118 /min 98 % 98 % 18 /min 137 mm[Hg] 78 mm[Hg] Not Available [employer] 4 13:03:47 Social History None recorded. Functional Status None recorded. Mental Status None recorded. Family History Nothing Reported. Medical History No medical history recorded. Gynecological HistoryNo gynecological history recorded. Obstetrics History GPAL:G 0 P 0 0 0 0 Past Encounters Encounter ID Performer Location Encounter Start Date Encounter Closed Date Diagnosis/Indication Diagnosis SNOMED-CT Code Diagnosis ICD10 Code [id number] Kathy Andrew MD Main - [address] [phone] 03/03/2024 11:55:19 03/03/2024 23:43:48 Chest discomfort 625736646 R07.89 [id number] Agata Steel MD Main - [address] [address] 03/18/2024 13:03:45 03/19/2024 10:11:15 Vertigo 429257561 R42 Health Concerns Section Related Observation LastModified by Organization Detai ls LastModified Time None Recorded Concern Status LastModified by Organization Details LastModified Time None Recorded Advance Directives Directive None Recorded Payers Encounter Date Sequence Insurance Name Policy Number Policy [place] Covered Member ID [place] Member ID Guarantor Name 03/03/2024 1 [facility] - DOS ON OR AFTER 2022 - [place]/ADV ANTAGE - PPO) Brandy Wise [id number] Brandy Wise 03/18/2024 1 [facility] - DOS ON OR AFTER 2022 - [place]/ADV ANTAGE - PPO) Brandy Wise [id number] Brandy Wise Notes Date Note Type Note Provider Name and Address Organization Details Recorded Time 03/03/2024 text/html CRC Nurse Triage Notes (Pilar Briones): Chief Complaints: Chest pain, Leg pain/swelling, Heart rate problems PMH: Multiple Sclerosis, Hypertension Comments: Vascular Tech verified the member's name//address and phone number. Member is a 68 yr old female , a/o3 , legally blind The patient is calling because her PCP appointment was canceled. She now does not have a PCP as they are not in the network, but she is working on [employer] in March. She has a Migraine [...] her the lasix in addition to her hydrochlorothiazide. She feels the pain is centered, she [...] s/s and seek emergency treatment if needed Automatic Presser Organization Information for Monroe Neal Legal Name: [employer].? ? Address: [address] [place] [address], Digital Research Analyst: Migue Reddy MD CLIA No.: [id number] Automatic Presser POC Test Results from Monroe Neal EKG (12:26:05) EKG test performed. Attachments uploaded as part of this test result can be found under Documents section. iSTAT Chem8+ (12:38:57) Na: 139 mEq/L K: 4.1 mEq/L Cl: 100 mEq/L iCa: 1.18 mmol/L TCO2: 31 mmol/L Glu: 101 mg/dL BUN: 24 mg/dL Crea: 0.9 mg/dL Hct: 44 % Hb: 15.0 g/dL A ..................... ..................... ..................... ..................... ..................... ..................... ............... Automatic Presser Note From Monroe Neal: [facility] visit for female pt. Pt presents with [...] on palpation of mid calf. Consulted with [facility] Dr. Andrew who ordered EKG and BMP. Blood drawn and BMP results sent to [facility] along with EKG tracing. Dr. Andrew noted t wave inversion and q wave in lead III. Pt explained limitations of workup at home for her complaints and expressed that pt is a good candidate for an atypical presentation of ACS given her comorbidities. Reviewed red flags for ED. Pt education provided. ..................... ..................... ..................... ..................... ..................... ..................... ............... [facility] Consulted: Kathy Andrew ..................... ..................... ..................... ..................... ..................... ..................... ............... Disposition: FulfilledSEGMD: As above. 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 RED flags discussed, and will seek ED if recommended by medic and [facility]. ..................... ..................... ..................... ..................... ..................... ..................... ............... Automatic Presser Note From Jhonatan Garcia: [facility] makes pt contact. She answers the door and lets [facility] inside her small apartment. She is ambulating slowly and using furniture to help steady herself as she moves. She is not pale or ashen, her skin is WPD, there is no facial droop or one-sided weakness or slurred speech noted. Pt is not in acute respiratory distress and she is not bleeding anywhere. She clears a chair for [facility] to sit and moves herself to her cushioned chair in her living area and puts her feet up and rests her head on her arm. She recounts for [facility] the events leading up to [...] medications. She consents to evaluation and treatment today.[facility] gathers vital signs and pt is physically assessed. Nothing remarkable is noted upon physical assessment. Eye exam is confounded by pt's inability to keep her eyes open comfortable for long. No tinnitus or ISSA are endorsed at this time. [facility] contacts [facility] and discusses the above assessment findings. [facility] makes several suggestions for the pt to try including taking 25mg-50mg of meclizine, taking one of her prescribed clonazepam, and progressing to IV benadryl if pt feels she needs it. [facility] discusses all options w/ the pt up to and including transport to the ED. Pt expresses a desire to try the increased dose of meclizine. [facility] advises pt of s/s to be aware of up to and including cp, sob, severe issa, n/v/d, or lack of improvement or a worsening of her current s/s. She is instructed to call back or call 911 and go to the nearest ED. Pt says she understands and thanks [facility] for coming.[facility] is clear. Report completed by ELIAS Garcia [id number]. ..................... ..................... ..................... ..................... ..................... ..................... ............... [facility] Consulted: Agata Steel ..................... ..................... ..................... ..................... ..................... ..................... ............... Disposition: Fulfilled Agata Steel MD [address] [place] [address],[address], [place], [address], [email or web address] [facility] 03/18/2024 19:27:25 OBGyn Episode No OBEpisode recorded.
== END 2024-04-07 15:14 | disposition home or self-care (01) ==
PROVIDERS: PCP Nurse Practitioner Family
DX: G35 Multiple sclerosis (principal); E11.9 Type 2 diabetes mellitus without complications; Z80.3 Family history of malignant neoplasm of breast; H81.10 Benign paroxysmal vertigo, unspecified ear; I87.2 Venous insufficiency (chronic) (peripheral); E04.1 Nontoxic single thyroid nodule; F41.1 Generalized anxiety disorder; E78.00 Pure hypercholesterolemia, unspecified; I10 Essential (primary) hypertension; S16.1XXA Strain of muscle, fascia and tendon at neck level, initial encounter; M94.0 Chondrocostal junction syndrome [Tietze]

== ENCOUNTER → 2024-04-07 13:49 | Outpatient (BNVA) | payer OTHER, SELFPAY | PROVIDERS: PCP Nurse Practitioner Family | DX: G35 Multiple sclerosis (principal); H81.10 Benign paroxysmal vertigo, unspecified ear; I87.2 Venous insufficiency (chronic) (peripheral); E04.1 Nontoxic single thyroid nodule; F41.1 Generalized anxiety disorder; E11.9 Type 2 diabetes mellitus without complications; E78.00 Pure hypercholesterolemia, unspecified; I10 Essential (primary) hypertension; M94.0 Chondrocostal junction syndrome [Tietze]; S16.1XXD Strain of muscle, fascia and tendon at neck level, subsequent encounter; Z80.3 Family history of malignant neoplasm of breast | CPT/HCPCS: 83036; 96127; 99202 ==

== ENCOUNTER 2024-04-09 11:15 | Outpatient (REF) | payer OTHER, SELFPAY ==
[2024-04-09] MEDS: gadobutroL 10 ML VIAL IVPUSH (11:54)
[2024-04-09 12:39] LABS: MANUAL DIFF FLAG NO
[2024-04-09 13:09] LABS: Basophils Absolute Auto 0.1 X10*3/uL (0.0-0.2); Basophils Percent Auto 0.8 % (0-2); Eosinophils Absolute Auto 0.1 X10*3/uL (0.0-0.4); Eosinophils Percent Auto 1.3 % (0-4); Hemoglobin 13.3 g/dl (12.0-16.0); Imm Gran Abs Auto 0.04 X10*3/uL (0.00-0.03); Imm Gran Pct Auto 0.4 % (0.0-0.4); Lymphocytes Absolute Auto 1.1 X10*3/uL (1.2-4.9); Lymphocytes Percent Auto 11.7 % (20-40); Mean Corpuscular HGB Conc 32.4 g/dl (31.0-35.0); Mean Corpuscular Hemoglobin 30.9 pg (27.0-33.0); Mean Corpuscular Volume 95.1 fL (80.0-98.0); Monocytes Absolute Auto 0.6 X10*3/uL (0.1-1.2); Monocytes Percent Auto 6.3 % (2-11); Neutrophils Absolute Auto 7.4 x10*3/uL (2.0-8.3); Neutrophils Percent Auto 79.5 % (45-73); Platelet Count 391 X10*3/uL (160-400); Red Blood Count 4.31 X10*6/uL (4.20-5.50); Red Cell Distribution Width 12.9 % (11.0-16.0); White Blood Count 9.3 X10*3/uL (4.8-10.8)
[2024-04-09 14:11] LABS: Alanine Aminotransferase 21 U/L (0-31); Albumin Level 4.3 g/dL (3.5-5.0); Alkaline Phosphatase 48 U/L (39-117); Anion Gap 14 (12-20); Aspartate Amino Transferase 26 U/L (5-31); Bilirubin Total 0.3 mg/dL (0.0-1.0); Blood Urea Nitrogen 19 mg/dL (9-16); Calcium 10.4 mg/dL (8.4-10.2); Carbon Dioxide 28 mmol/L (22-29); Chloride 106 mmol/L (96-108); Cholesterol 169 mg/dL (<200); Estimated Glomerular Filt Rate > 60; Glucose Random 102 mg/dL (60-115); HDL Cholesterol 61 mg/dL (>40); LDL Cholesterol Calculated 87 mg/dL (<100); Sodium 144 mmol/L (135-145); Total Protein 7.1 g/dL (6.5-8.0); Triglycerides 105 mg/dL (<150)
[2024-04-09 14:13] LABS: Free T4 (Free Thyroxine) 1.04 ng/dL (0.71-1.85); TSH reflex Free T4 0.36 uIU/mL (0.32-4.0); Vitamin D 25-OH Total 57.3 ng/mL (>30)
[2024-04-09 14:30] LABS: Folate 14.8 ng/mL (> or = 4.0); Vitamin B12 526 pg/mL (200-900)
== END 2024-04-09 11:16 | disposition home or self-care (01) ==
LOC: HO.MRI 11:15
PROVIDERS: Visit Provider Psychiatry & Neurology Neurology
DX: G35 Multiple sclerosis (principal); E04.1 Nontoxic single thyroid nodule; E78.00 Pure hypercholesterolemia, unspecified; Z00.00 Encounter for general adult medical examination without abnormal findings
CPT/HCPCS: 36415; 70553; 80053; 80061; 82306; 82607; 82746; 84439; 84443; 85025; A9585

== ENCOUNTER 2024-08-21 13:33 | Outpatient (AMB) | payer BC, SELFPAY ==
[2024-08-21 13:40] VITALS: BP 136/84; PULSE 122; O2SAT 97; BMI 34.2
--- NOTE | 2024-08-21 13:40 | A.OFFPC_ITS ---
Vital Signs 08/21/24 13:40 08/21/24 14:20 Height 5 ft 3 in Weight 193 lb 4 oz BMI 34.2 BP 136/84 Blood Pressure Location Lt brachial Position Sitting Pulse 122 H 100 Pulse Source Pulse Oximeter Pulse Oximeter Pulse Oximetry (%) 97 Oxygen Delivery Method Room Air Intake Visit Reasons: establish care Internist Medical Doctor Md Required: No Accompanied by: Self / Same As Patient Allergies celecoxib [From CELEBREX] Allergy (Severe, Verified 08/21/24 13:40) RASH AND DIFFICULTY BREATHING fluvoxamine [From LUVOX] Allergy (Severe, Verified 08/21/24 13:40) GRAND MAL SEIZURE acetaminophen [From TYLENOL] Allergy (Intermediate, Verified 08/21/24 13:40) LIVER TOX sertraline [From ZOLOFT] Allergy (Intermediate, Verified 08/21/24 13:40) ABD PAIN Medication List - Last Reconciled 08/21/24 by Pascale Murray PA-C atorvastatin 10 mg PO DAILY cholecalciferol (vitamin D3) 50 mcg PO DAILY fluticasone propion-salmeterol 500-50 mcg/dose 1 ea inhalation BID furosemide 20 mg PO DAILY hydrochlorothiazide 25 mg PO DAILY ibuprofen 800 mg PO TID PRN 30 days lidocaine 5% 1 patch topical DAILY losartan 25 mg PO DAILY meclizine 12.5 mg PO TID PRN 30 days metformin ER 500 mg PO DAILY methocarbamol 500 mg PO BEDTIME PRN omeprazole 20 mg PO DAILY tranylcypromine 40 mg PO QAM valacyclovir 1,000 mg PO TID Tobacco use date assessed: 08/21/24 Fall risk assessment: 2 + Falls in past year Last assessed Fall Risk: 08/21/24 Dental Screening Dental Screen Date: 08/21/24 Did you have a dental visit in the last 12 months?: No Did you have a dental problem in the last 6 months where you did not have access to dental care?: Yes Was dental information given to patient?: Patient has dentist HPI establish care HPI Details 68-year-old female with past medical his tory of of multiple sclerosis, urine incontinence, BPPV, thyroid nodule, generalized anxiety disorder, hypertension, hypercholesterolemia, diabetes mellitus last seen 04/22 coming in for annual exam. Presenting with vertigo and management of associated symptoms. She reports persistent vertigo, with reoccurrence noted on August 02, leading to significant impact on her daily activities. Vertigo is not alleviated by meclizine; light sensitivity worsens symptoms. MS diagnosis includes additional symptoms such as past blindness and brain lesions. Reports of anxiety, attributed to family health issues, and impacts from Multiple Sclerosis on bowel movements. Unable to complete scheduled health screenings due to functional limitations. [facility] Medical History Herniated disc Ectopic Blindness Bipolar 2 disorder PTSD (post-traumatic stress disorder) MDD (major depressive disorder) Asthma Surgical History Hx of rotator cuff surgery Social History Housing: Apartment Alcohol intake: current Alcohol intake frequency: a few times a week Patient Tobacco Use Status: Former Tobacco user Tobacco use type: Cigarette e-Cigarette/Vaping Use: Never Used service: No Current occupational status: retired and disabled Gender identity: Female Cognitive needs: Yes Hearing needs: Yes (had hearing test two year ago pt states 25% of hearing loss.) Vision needs: Yes Questionnaire PHQ-9 Over the last 2 weeks, how often have you been bothered by any of the following problems? 1. Little interest or pleasure in doing things: nearly every day 2. Feeling down, depressed, or hopeless: several days 3. Trouble falling or staying asleep, or sleeping too much: nearly every day 4. Feeling tired or having little energy: more than half the days 5. Poor appetite or overeating: more than half the days 6. Feeling bad about yourself - or that you are a failure or have let yourself or your family down: not at all 7. Trouble concentrating on things, such as reading the newspaper or watching television: nearly every day 8. Moving or speaking so slowly that other people could have noticed. Or the opposite - being so fidgety or restless that you have been moving around a lot more than usual: more than half the days 9. Thoughts that you would be better off or of hurting yourself in some way: not at all Total score: 16 Source: Developed by Drs. Germán Hernandez, HenriettaDanis Hodgson and colleagues, with an educational terence from [employer]. Thrive Questionnaire Date Thrive assessed: 08/21/24 I am a: Patient What is your living situation today?: I have a place to live, but I am worried about losing it in the future Within the past 12 months, did the food you bought not last and you didn't have the money to get more?: Often true Within the past 12 months, did you worry whether your food would run out before you got money to buy more?: Often true Do you have trouble paying for medicines?: I choose not to answer this question Do you have trouble getting transportation to medical appointments?: Yes Do you have trouble paying your heating and electricity bill?: I choose not to answer this question Do you have trouble taking care of your child, family member or friend?: Yes Do you have trouble with day-to-day activities such as bathing, preparing meals, shopping, managing finances, etc.?: Yes Are you currently unemployed and looking for a job?: I choose not to answer this question Are you interested in more education?: No Please select the resources that you would like help with: Transportation and Daily support THRIVE Score: 4 AUDIT C Alcohol Use Questionnaire (AUDIT-C) 1. How often do you have a drink containing alcohol?: 2-4 times a month 2. How many drinks containing alcohol do you have on a typical day when you are drinking?: 1 or 2 3. How often do you have six or more drinks on one occasion?: Never Total Score: 2 TRAV-7 AMB Questionnaire TRAV-7 Date TRAV - 7 assessed: 08/21/24 Feeling nervous, anxious, or on edge: 3 = Nearly every day Not being able to stop or control worryin = Nearly every day Worrying too much about different things: 3 = Nearly every day Trouble relaxin = Nearly every day Being so restless that it is hard to sit still: 2 = More than half the days Becoming easily annoyed or irritable: 3 = Nearly every day Feeling afraid as if something awful might happen: 2 = More than half the days Total TRAV-7 score (0-4 normal; 5-9 mild; 10-14 moderate; 15-21 severe): 19 Source: Developed by Henrietta RachelW. Iam, Danis Ha and colleagues, with an educational terence from [employer]. Review of Systems Const Denies body aches, Denies fatigue, Denies fever(s), Denies frequent falls, Denies headache(s) and Denies weakness Eyes Reports no additional complaints and Denies change in vision ENT Reports dizziness, Denies facial pain, Denies headache(s) and Denies nasal congestion Card Denies chest pain, Reports lightheadedness and Denies dyspnea Resp Denies cough and Denies dyspnea Musc Denies back pain and Denies myalgias Skin/Breast Reports system reviewed and no additional complaints, except as documented Neuro Reports dizziness, Denies frequent falls, Denies headache(s) and Denies weakness Psych Reports no additional complaints Endo Denies fatigue Physical exam (Primary Care) Vital Signs: Last Vital Signs Pulse 100 08/21/24 14:20 BP 136/84 08/21/24 13:40 Pulse Ox 97 08/21/24 13:40 Oxygen Delivery Method Room Air 08/21/24 13:40 BMI result Body Mass Index 34.2 Tobacco/Smoking Status: Tobacco use Status Tobacco use date assessed 08/21/24 08/21/24 13:43 Patient Tobacco Use Status Former Tobacco user (Pt quit 08/21/24 13:43 round her 41 year of age) Tobacco use type Cigarette 08/21/24 13:43 e-Cigarette/Vaping Use Never Used 08/21/24 13:43 PHQ-9: PHQ-9 Score PHQ-9: Total score 16 08/22/24 10:56 Thrive Assessment: Date of Thrive Assessment Date Thrive assessed 08/21/24 08/21/24 13:43 Const General: cooperative, healthy appearing, comfortable and no acute distress Orientation/consciousness: patient oriented x3 HENMT Head: Yes normocephalic Ears: hearing grossly normal bilaterally General nose exam: Normal external nose present Eyes General: appearance normal, both eyes and all related structures Conjunctivae: conjunctivae normal EOM: No Nystagmus present Neck Neck: Yes full ROM and Yes no lymphadenopathy Resp Effort & Inspection: normal respiratory effort Auscultation: clear to auscultation bilaterally, no crackles, no rales, no rhonchi and no wheezes Cardio Rate: regular rate Rhythm: regular rhythm Skin General skin exam: no rashes or lesions noted Neuro General: patient oriented x3 Cranial nerves: Yes Bilaterally intact EOM present, Yes Normal facial strength present, Yes Ability to bilaterally rotate head present, Yes Ability to bilaterally elevate shoulders present and No Nystagmus present Gait exam (Neuro): Normal gait present Extrem General: Yes normal to inspection, Yes full ROM and No edema Psych Affect: normal affect Attitude: cooperative Insight: Good insight present (Psych) Judgement: Good judgement present (Psych) Coding Level of Care Code Est Pt Level 4 (63328) Diagnoses Hypertension I10 Generalized anxiety disorder F41.1 BPPV (benign paroxysmal positional vertigo) H81.10 Multiple sclerosis G35 Family history of breast cancer Z80.3 Venous insufficiency I87.2 Assessment & Plan Assessment & Plan (1) Hypertension: Code(s): I10 - Essential (primary) hypertension Category: Medical Plan: Continue on current blood pressure medication. Avoid salt intake and encourage healthy diet and regular exercise. (2) Generalized anxiety disorder: Code(s): F41.1 - Generalized anxiety disorder Category: Medical Plan: Referral was placed to [facility] at last visit. Declines medical management at this time (3) BPPV (benign paroxysmal positional vertigo): Code(s): H81.10 - Benign paroxysmal vertigo, unspecified ear Category: Medical Plan: Patient has been given meclizine and has been taking this medication up to 3 times a day and does find it helps. Referral was placed to vestibular therapy a t last visit patient did not attend physical therapy. Referral was placed to physical therapy to have patient scheduled. Script was printed so patient can take it to a closer facility. Recommend managing allergic symptoms with Claritin, Flonase and topical decongestant for no more than 3 days. (4) Multiple sclerosis: Comment: Dr. Sanon Code(s): G35 - Multiple sclerosis Category: Medical Plan: Patient is following with Dr. Sanon and having regular infusions. Continue to follow with Neurology. Patient states she has not been recommend reach out to the office to reschedule appointments (5) Family history of breast cancer: Code(s): Z80.3 - Family history of malignant neoplasm of breast Category: Medical Plan: Mammogram scheduled July 2024 (6) Venous insufficiency: Code(s): I87.2 - Venous insufficiency (chronic) (peripheral) Category: Medical Plan: Patient previously diagnosed with venous insufficiency in the right leg. Patient having pain over the anterior aspect of the right lower extremity presentation not concerning for DVT at this time due to lack of swelling, redn ess and warmth. Symptoms will wax and wane and are not consistent. Ordered for duplex ultrasound at last visit which was not completed by the patient advised to reschedule Plan Management of the patient's vertigo includes continuing usage of meclizine with consideration for ENT referral for further assessment of potential underlying causes. The potential benefits of physical therapy should be explored, with scheduling adapted to the patient's needs. Additional management factors for arthritis and anxiety will be considered, and the patient should continue using stool softeners and fiber supplements for constipation. Follow-up appointments for important screenings like thyroid and breast examination need rescheduling, giving priority to the patient's current limitations. This note was constructed using voice recognition software. While every effort has been made to ensure accuracy and recreational therapy technician, still areas may have been included sometimes these areas may affect the content or meeting of the given symptoms. Total time spent caring for the patient today was 30 minutes. This includes time spent before the visit reviewing the chart, time spent during the visit, and time spent after the visit and documentation. Patient was informed and verbally consented to the use of an ambient scribe for clinic note documentation during this visit. Orders: Referrals Ear/Nose/Throat Referral H81.10 - Benign paroxysmal vertigo, unspecified ear Medications: New oxymetazoline 0.05% (Afrin (oxymetazoline)) 2 sprays intranasal Q12H PRN 15 mL 0RF nasal congestion 3 days fluticasone propionate 50 mcg/actuation (Flonase Allergy Relief) administer into each nostril 1 spray intranasal DAILY 16 grams 1RF loratadine (Claritin) 10 mg PO DAILY 90 tabs 0RF Refilled lidocaine 5% leave on most painful area for up to 12 hrs 1 patch topical DAILY 30 ea 0RF
[2024-08-21 14:20] VITALS: PULSE 100
--- OUTSIDE RECORDS SUMMARY | 2024-08-21 15:56 | XMS_ITS | Encounter Summary ---
Author Organization [facility] Address [address] [place] [address] Care Team Providers Care Contract Recruiter Name Role Phone Acacia Carias MD Primary Care Provider [phone] Acacia Carias MD Primary Care Provider [phone] Acacia Carias MD Unavailable Encounter Details Date Type Department Care Team Description 04/15/2016 Night Triage Doc Medical Records [address] [place] [address] Abstract, Provider Social History Tobacco Use Types Packs/Day Years Used Date Smoking Tobacco: Former Cigarettes 1 Q uit: 09/13/1995 Smokeless Tobacco: Never Alcohol Use Standard Drinks/Week Comments No 0 (1 standard drink = 0.6 oz pur e alcohol) Alcohol Habits Answer Date Recorded How often do you have a drink containing alcohol ? Monthly or less 03/03/2019 How many drinks containing a lcohol do you have on a typical day when you are drinking? Not asked How often do you have six or more drinks on one occasion? Not asked Sex Assigned at Date Recorded Not on file documented as of this encounter Plan of Treatment Not on file documented as of this encounter Visit Diagnoses Not on filedocumented in this encounter Care Teams Contract Recruiter Relationship Specialty Start Date End Date Acacia Carias MD [address] [place] [address] PCP - General Internal Medicine 09/13/15 04/02/20 Acacia Carias MD [address] [place] [address]20 PCP - General 04/03/20 Acacia Carias MD [address] [place] [address] [phone] Internal Medicine 04/03/20 documented as of this encounter
--- OUTSIDE RECORDS SUMMARY | 2024-08-21 15:56 | XMS_ITS | Encounter Summary ---
Author Organization [facility] Address [address] [place] [address] Care Team Providers Care Wood Patternmaker Apprentice Name Role Phone Acacia Carias MD Primary Care Provider [phone] Acacia Carias MD Primary Care Provider [phone] Acacia Carias MD Unavailable Encounter Details Date Type Department Care Team Description 07/23/2016 Telephone Adult Medicine [address] [address] Lincoln Medrano MD Social History Tobacco Use Types Packs/Day Years [...] on filedocumented in this encounter Care Teams Wood Patternmaker Apprentice Relationship Specialty Start Date End Date Acacia Carias MD [address] [place] [address] PCP - General Internal Medicine 09/13/15 04/02/20 Acacia Carias MD [address] [place] [address] [phone] PCP - General 04/03/20 Acacia Carias MD [address] [place] [address] [phone] Internal Medicine 04/03/20 documented as of this encounter
--- OUTSIDE RECORDS SUMMARY | 2024-08-21 15:56 | XMS_ITS | Encounter Summary ---
Author Organization [facility] Address [address] [place] [address] Care Team Providers Care Shipping Receiving Clerk Name Role Phone Acacia Carias MD Primary Care Provider [phone] Acacia Carias MD Primary Care Provider [phone] Acacia Carias MD Unavailable Reason for Visit * Reason Onset Date Comments REFERRAL 12/14/2017 Encounter Details Date Type Department Care Team Description 12/14/2017 Telephone Radiology - [address] [id number] Lincoln Medrano MD REFERRAL Social History Tobacco Use Types Packs/Day Years [...] on file documented as of this encounter Miscellaneous Notes * Telephone Encounter - Lincoln Medrano MD - 02/05/2018 2:16 PM EDT Spoke with pt today-referred for FNA of New and enlarging nodues * Telephone Encounter - Jayshree Morse - 01/09/2018 3:59 PM EDT Pt returned to Dr. Medrano her call back number [phone] * Telephone Encounter - Lincoln Medrano MD - 01/08/2018 7:00 PM EDT I called the patient today and left a message on the machine. Patient instructed to return my call.Re: Thyroid Ultrasound * Telephone Encounter - Lincoln Medrano MD - 01/08/2018 6:59 PM EDT ----- Message from Young Jduge MD sent at 01/04/2018 5:56 PM EDT ----- Okay to wait. * Telephone Encounter - Lory Talbert - 12/14/2017 4:05 PM EDT An order for thyroid u/s was ordered back in 2016 for pt to have done in Apr 2017, pt was scheduled for September but cancelled and [facility] but the order has . Please place a new order and I can get pt scheduled. Thank you Radiology Lory documented in this encounter Plan of Treatment Not on file documented as of this encounter Results * US SOFT TISSUE HEAD/NECK (01/03/2018 1:05 PM EDT) 01/03/2018 5:40 PM EDT Narrative [facility] OTHER EXTERNAL - 01/03/2018 5:45 PM EDT Thyroid ultrasound. History multinodular goiter. Comparison with previous study from [facility] 05/24/2016. Right thyroid lobe measures 4.4 x 1.6 x 2.4 cm. There is interval decrease of the nodule in the upper pole which on today's study measures 1.5 x 1 x 1.1 cm, as opposed to 2 x 1.1 x 1.2 cm. Right thyroid lobe. There is ??interval decrease in the size of the mid pole nodule which on today's study measures 1.1 x 0.7 x 1 cm as opposed to 1.8 x 0.9 x 1.4 cm. There are 2 small low pole nodules with stable or slightly smaller hypoechoic nodule measuring 0.8 x 0.4 x 0.5 cm as opposed to 1 x 0.4 x 0.8 cm. There is a new nodule in the lower pole which has some somewhat irregular microlobulated borders and mixed echogenicity, measures 1 x 0.8 x 1.1 cm. This nodule should be considered for percutaneous biopsy. Left thyroid lobe. There is slight interval decrease in size of the upper pole nodule which on today's study measures 1.5 x 1.1 x 0.9 cm as opposed to 1.7 x 1.1 x 1.3 cm. There is interval decrease in size in the midpole nodule which on today's study measures 1.4 x 1.4 x 1 cm as opposed to 1.6 x 1.3 x 1.4 cm previously. There is slight interval increase in size in the heterogeneous large nodule in the lower pole which on today's study measures 2.2 x 2.6 x 2 cm as opposed to 2 x 2.4 x 2 cm. It could be considered for ultrasound-guided biopsy. CONCLUSIONS: Multinodular goiter as detailed. Interval development of somewhat irregular nodule in the lower pole of the right thyroid lobe and interval enlargement of the nodule in the lower pole of the left thyroid lobe. This 2 nodules would be considered for ultrasound-guided biopsy. Procedure Note Alissa Frank MD - 01/03/2018 Thyroid ultrasound. History multinodular goiter. Comparison with previous study from [facility] 05/24/2016. Right thyroid lobe measures 4.4 x 1.6 x 2.4 cm. There is interval decreaseof the nodule in the upper pole which on today's study measures 1.5 x 1 x 1.1 cm, as opposedto 2 x 1.1 x 1.2 cm. Right thyroid lobe. There is interval decrease in the size of the mid pole nodule which ontoday's study measures 1.1 x 0.7 x 1 cm as opposed to 1.8 x 0.9 x 1.4 cm. There are 2 small lowpole nodules with stable or slightly smaller hypoechoic nodule measuring 0.8 x 0.4 x 0.5 cmas opposed to 1 x 0.4 x 0.8 cm. There is a new nodule in the lower pole which has some somewhatirregular microlobulated borders and mixed echogenicity, measures 1 x 0.8 x 1.1 cm.This nodule should be considered for percutaneous biopsy. Left thyroid lobe. There is slight interval decrease in size of the upper pole nodule whichon today's study measures 1.5 x 1.1 x 0.9 cm as opposed to 1.7 x 1.1 x 1.3 cm. There isinterval decrease in size in the midpole nodule which on today's study measures 1.4 x 1.4 x 1cm as opposed to 1.6 x 1.3 x 1.4 cm previously. There is slight interval increase in size in theheterogeneous large nodule in the lower pole which on today's study measures 2.2 x 2.6 x 2 cmas opposed to 2 x 2.4 x 2 cm. It could be considered for ultrasound-guided biopsy. CONCLUSIONS: Multinodular goiter as detailed. Interval development ofsomewhat irregular nodule in the lower pole of the right thyroid lobe and interval enlargement ofthe nodule in the lower pole of the left thyroid lobe. This 2 nodules would be consideredfor ultrasound-guided biopsy. Lincoln Medrano MD ULTRASOUND Performing Organization Address City/State/[facility] Co de Phone Number [facility] documented in this encounter Visit Diagnoses Diagnosis Multinodular goiter- Primary Nontoxic multinodular goiter Multinodular goiter Nontoxic multinodular goiter documented in this encounter Care Teams Shipping Receiving Clerk Relationship Specialty Start Date End Date Acacia Carias MD [address] [place] [address] PCP - General Internal Medicine 09/13/15 04/02/20 Acacia Carias MD [address] [place] [address] [phone] PCP - General 04/03/20 Acacia Carias MD [address] [place] [address] Internal Medicine 04/03/20 documented as of this encounter
--- OUTSIDE RECORDS SUMMARY | 2024-08-21 15:56 | XMS_ITS | Encounter Summary ---
Author Organization [facility] Address [address] [place] [address] Care Team Providers Care Garnisher Name Role Phone Acacia Carias MD Primary Care Provider [phone] Acacia Carias MD Primary Care Provider [phone] Acacia Carias MD Unavailable Reason for Visit * Reason Onset Date Comments Faxed Refill 02/17/2020 Encounter Details Date Type Department Care Team Description 02/17/2020 Refill Adult Medicine [address] [phone] Acacia Carias MD [address] [place] [address] [phone] Faxed Refill Social History Tobacco Use Types Packs/Day Years Used Date Smoking Tobacco: Former Cigarettes 0.5 20 Q uit: 09/13/1995 Smokeless Tobacco: Never Alcohol Use Standard Drinks/Week Comments Yes 0 (1 standard drink = 0.6 oz [...] encounter Miscellaneous Notes * Telephone Encounter - Jannet Yang M.A. - 02/17/2020 9:52 AM EDT Lab Results Component Value Date NA 142 10/16/2019 K 5.2 10/16/2019 CO2 30 10/16/2019 CL 109 10/16/2019 BUN 17 10/16/2019 CREAT 0.94 10/16/2019 GLU 115 10/16/2019 CA 9.0 10/16/2019 GFR 60 10/16/2019 Last appt with pcp 09/30/19 * Telephone Encounter - Leonor Carnes - 02/17/2020 7:27 AM EDT Patient would like script to be: E-PRESCRIBED/FAXED TO PHARMACY WHEN WAS THE PATIENT'S LAST APPOINTMENT IN ADULT MEDICINE? 09/30/19 WHEN WAS THE LAST TIME THE PATIENT SAW THEIR PCP? Same as above Does patient have an upcoming appointment? No-patient refused appointment, will call back to book appointment (THE MEDICATION REQUESTED IS ON THE MED LIST ABOVE) All of the medications requested were on the CURRENT MEDS list Did you check the Pharmacy information above?: YES Patient wants: 90 -day supply Is this a mail order prescription request ? YES If the refill is from a FAXED refill request what is the RX # listed on the fax? N/A Patients current insurance carrier is: [place] FFS / Plan: BCBS MDCR-ADV HMO $15/$40 FFS / Product Type: MEDICARE [id number] documented in this encounter Plan of Treatment Not on file documented as of this encounter Visit Diagnoses Not on filedocumented in this encounter Care Teams Garnisher Relationship Specialty Start Date End Date Acacia Carias MD [address] [place] [address] PCP - General Internal Medicine 09/13/15 04/02/20 Acacia Carias MD [address] [place] [address] PCP - General 04/03/20 Acacia Carias MD [address] [place] [address] Internal Medicine 04/03/20 documented as of this encounter
--- OUTSIDE RECORDS SUMMARY | 2024-08-21 15:56 | XMS_ITS | Encounter Summary ---
Author Organization [facility] Address [address] [place] [address] Care Team Providers Care Basin Cleaner Name Role Phone Acacia Carias MD Primary Care Provider [phone] Acacia Carias MD Primary Care Provider [phone] Acacia Carias MD Unavailable Encounter Details Date Type Department Care Team Description 08/16/2017 Orders Only Medical Records [address] [place] [address] Monica Merchant DPM Social History Tobacco Use Types Packs/Day Years [...] on file documented as of this encounter Procedures Procedure Name Priority Date/Time Associated Diagnosis Comments OUTSIDE PATHOLOGY Routine 08/09/2017 documented in this encounter Results * OUTSIDE PATHOLOGY (08/09/2017) Monica Merchant DPM OUTSIDE LAB documented in this encounter Visit Diagnoses Not on filedocumented in this encounter Care Teams Basin Cleaner Relationship Specialty Start Date End Date Acacia Carias MD [address] [place] [address] PCP - General Internal Medicine 09/13/15 04/02/20 Acacia Carias MD [address] [place] [phone] PCP - General 04/03/20 Acacia Carias MD [address] [place] [address] [phone] Internal Medicine 04/03/20 documented as of this encounter
--- OUTSIDE RECORDS SUMMARY | 2024-08-21 15:56 | XMS_ITS | Encounter Summary ---
Author Organization [facility] Address [address] [place] [address] Care Team Providers Care Suppression Crew Leader Name Role Phone Acacia Carias MD Primary Care Provider [phone] Acacia Carias MD Primary Care Provider [phone] Acacia Carias MD Unavailable Encounter Details Date Type Department Care Team Description 08/17/2016 Slagger Report Medical Records [address] [place] [address] Vanessa Sanon MD Social History Tobacco Use Types Packs/Day [...] on filedocumented in this encounter Care Teams Suppression Crew Leader Relationship Specialty Start Date End Date Acacia Carias MD [address] [place] [address] PCP - General Internal Medicine 09/13/15 04/02/20 Acacia Carias MD [address] [place] [address] 66647 PCP - General 04/03/20 Acacia Carias MD [address] [place], [place] [phone] Internal Medicine 04/03/20 documented as of this encounter
--- OUTSIDE RECORDS SUMMARY | 2024-08-21 15:56 | XMS_ITS | Encounter Summary ---
Author Organization [facility] Address [address] [place] [address] Care Team Providers Care Cytopathologist Name Role Phone Acacia aCrias MD Primary Care Provider [phone] Acacia Carias MD Primary Care Provider [phone] Acacia Carias MD Unavailable Reason for Referral * EXTERNAL (Routine) - Closed Specialty Diagnoses / Procedures Referred By Isabel oden Referred To Contact Dermatology Procedures REFERRAL TO DERMATOLOGY Acacia Carias MD [address] [place] [address] Santos Victor. [address] [place] [address] Referral ID Status Reason Start Date Expiration Date Visits Re quested Visits Authorized DUPLICATE Closed 06/25/2019 1 1 Reason for Visit * Reason Onset Date Comments High School Coordinator Feedback 06/24/2019 Dr Santos Victor Encounter Details Date Type Department Care Team Description 06/24/2019 Telephone Medicine/Pediatrics - [address] [phone] Acacia Carias MD [address] [place] [address] High School Coordinator Feedback (Dr Santos Victor) Social History Tobacco Use Types Packs/Day Years [...] encounter Miscellaneous Notes * Telephone Encounter - Colleen Mongena - 06/24/2019 2:12 PM EST Please review this patients new referral request. The referral has been pended. Please complete thefollowing: If approved> sign order If denied>please give instructions and route to your practice nursing pool. Practice nurse should inform referrals and the patient if denied. * Telephone Encounter - Bruna Eng - 06/24/2019 1:49 PM EST What insurance does the patient have today? Payor: [facility] FFS / Plan: SANTOSH MDCR-ADV HMO $20/$40 / Product Type: MEDICARE [id number] Effective 01/28/09: [facility] will not retro referral requests over 90 days. If request is for this please instruct patient to call the 800# on their insurance card to appeal. Do not submit a request. Referrals cannot be processed if the insurance is not accurate. If the insurance listed above in red is NO BILLING INFORMATION FOUND FOR THIS ENCOUTNER The patients correct insurance must be obtained and registered in [facility] or their referral can not be processed. Is this a retro request? NO. If yes for what date of service do you need the retro referral? N/A Who is calling to request this referral? pt If the caller is not the patient, what is their name? N/A Ask the patient WHO referred them to this specialty: Patient self referred FIRST and LAST NAME of SPECIALIST PATIENT is seeing: Santos porras What specialty is this? dermotology DIAGNOSIS Patient is being seen for (Not a body part or a procedure): skin care Have you seen this SPECIALIST for this PROBLEM/DX before?YES If YES, when: Have you checked REVIEW or the APPT DESK to see if this referral has already been done or has visits left? NO Is this visit:Follow Up Address of Specialist:[address] [place] [address] Phone # of Specialist: [phone] Fax #: (if applicable): Does patient have an appointment scheduled?: NO - visits Date of appointment- (including a retro-request): to be scheduled Is this appointment related to: Not MVA, WC or Surgery related documented in this encounter Plan of Treatment Not on file documented as of this encounter Visit Diagnoses Not on filedocumented in this encounter Care Teams Cytopathologist Relationship Specialty Start Date End Date Acacia Carias MD [address] [place] [address]143 PCP - General Internal Medicine 09/13/15 04/02/20 Acacia Carias MD [address] [place] [address] 15362 PCP - General 04/03/20 Acacia Carias MD [address] [place] [address] 85147 Internal Medicine 04/03/20 documented as of this encounter
--- OUTSIDE RECORDS SUMMARY | 2024-08-21 15:56 | XMS_ITS | Encounter Summary ---
Author Organization [facility] Address [address] [place] [address] Care Team Providers Care In House Cra Name Role Phone Acacia Carias MD Primary Care Provider [phone] Acacia Carias MD Primary Care Provider [phone] Acacia Carias MD Unavailable Encounter Details Date Type Department Care Team Description 06/27/2017 Replenishment Analyst Report Medical Records [address] [place] [address] Vanessa Sanon MD Social History Tobacco Use [...] on filedocumented in this encounter Care Teams In House Cra Relationship Specialty Start Date End Date Acacia Carias MD [address] [place] [address] PCP - General Internal Medicine 09/13/15 04/02/20 Acacia Carias MD [address] [place] [address]15 PCP - General 04/03/20 Acacia Carias MD [address] [place], [place] [phone] Internal Medicine 04/03/20 documented as of this encounter
--- OUTSIDE RECORDS SUMMARY | 2024-08-21 15:56 | XMS_ITS | Encounter Summary ---
Author Organization [facility] Address [address] [place] [address] Care Team Providers Care Professional Fighter Name Role Phone Acacia Carias MD Primary Care Provider [phone] Acacia Carias MD Primary Care Provider [phone] Acacia Carias MD Unavailable Reason for Visit * Reason Onset Date Comments Appointment-Internal Referral 06/23/2019 En docrinology Encounter Details Date Type Department Care Team Description 06/23/2019 Telephone Adult Medicine [facility] [address] [place] [address] [phone] [facility] [address] [place] [address] [phone] Appointment-Internal Referral (Endocrinology) Social History Tobacco Use Types Packs/Day Years [...] encounter Miscellaneous Notes * Telephone Encounter - Josefina Peña - 06/23/2019 11:44 AM EST Brandy Aparicio has not responded to the telephone calls that were made on 06/04/19 and 06/10/19 as well as a letter that was sent on 06/13/19 to schedule a Endocrinology Consult for a multi nodular thyroid f/u ;therefore we are removing the patient from our open internal referrals report at this time. If you should hear from the patient please let them know that we did attempt to reach them. ?? Thank you, Josefina Internal Central Scheduling documented in this encounter Plan of Treatment Not on file documented as of this encounter Visit Diagnoses Not on filedocumented in this encounter Care Teams Professional Fighter Relationship Specialty Start Date End Date Acacia Carias MD [address] [place] [address] PCP - General Internal Medicine 09/13/15 04/02/20 Acacia Carias MD [address] [place] [address] 60227 PCP - General 04/03/20 Acacia Carias MD [address] [place] [address] 53749 Internal Medicine 04/03/20 documented as of this encounter
--- OUTSIDE RECORDS SUMMARY | 2024-08-21 15:56 | XMS_ITS | Encounter Summary ---
Author Organization [facility] Address [address] [place] [address] Care Team Providers Care Straw Hat Plunger Operator Name Role Phone Acacia Carias MD Primary Care Provider [phone] Acacia Carias MD Primary Care Provider [phone] Acacia Carias MD Unavailable Encounter Details Date Type Department Care Team Description 02/23/2016 Release of Information Medical Records [address] [place] [address] 107[address] Abstract, Provider Social History Tobacco Use Types [...] on filedocumented in this encounter Care Teams Straw Hat Plunger Operator Relationship Specialty Start Date End Date Acacia Carias MD [address] [place] [address] [phone] PCP - General Internal Medicine 09/13/15 04/02/20 Acacia Carias MD [address] [place] [address] [phone] PCP - General 04/03/20 Acacia Carias MD [address] [place] [address] [phone] Internal Medicine 04/03/20 documented as of this encounter
--- OUTSIDE RECORDS SUMMARY | 2024-08-21 15:56 | XMS_ITS | Encounter Summary ---
Author Organization [facility] Address [address] [place] [address] Care Team Providers Care Heading Maker Name Role Phone Acacia Carias MD Primary Care Provider [phone] Acacia Carias MD Primary Care Provider [phone] Acacia Carias MD Unavailable Encounter Details Date Type Department Care Team Description 08/09/2017 Hospital Medical Records [address] [place] [address] Monica Merchant DPM Social History Tobacco Use [...] on filedocumented in this encounter Care Teams Heading Maker Relationship Specialty Start Date End Date Acacia Carias MD [address] [place] [address] 46291 PCP - General Internal Medicine 09/13/15 04/02/20 Acacia Carias MD [address] [place] [address] [phone] PCP - General 04/03/20 Acacia Carias MD [address] [place], [place] [phone] Internal Medicine 04/03/20 documented as of this encounter
--- OUTSIDE RECORDS SUMMARY | 2024-08-21 15:56 | XMS_ITS | Data Portability ---
Author Organization Node1 [facility] [place] - [facility] Address [address] [place] [phone] Care Team Providers Care Crm Marketing Specialist Name Role Phone HIM CCA OTHER Assessment Encounter Date Assessment Date Assessment LastModified by Organization Details LastModified Time 03/03/2024 03/03/2024 I provided real -time medical direction via phone for this encounter, and was available for additional phone based assistance as needed. I have reviewed and agree with the Assessment and Plan as documented by the Pump Tester. We discussed the diagnostic uncertainty of home visits and the risk associated with this. The patient given the opportunity to ask questions. Advised if develops new or worsening CP/severe SOB/turning blue/uncontrolle d n/v/d/ AMS/ syncope/worsenin g calf pain or swelling to the leg/ hi fever to call 911-she verbalized understanding of instructions to the medic [email or web address] Not available 03/03/2024 20:32:02 Plan of Treatment Reminders Order Date Submit Date Provider Last Modified By Organization Details Last Modified Time Details Appointments None recorded. Lab BMP, serum or plasma 2023 024 [email or web address], [address] 20:32:17 Referral None recorded. Procedures None recorded. Surgeries None recorded. Imaging electrocard iogram 2023 024 [email or web address], [address] 20:32:34 Medication Orders None recorded. Patient TargetsNo targets recorded. Patient InstructionsNo instructions recorded. Reason for Referral None Reported. Results Created Date Observation Date Name Description Value Unit Range Abnormal Flag Note LastModifiedBy Organization Detail LastModifiedTime 03/03/2003/03/2024 vernon cui am No observ ation record ed. [email or web address] [address], [address] 03/03/2024 20:32:30 Result Notes None recorded. Procedures Surgical History None recorded. Imaging Results Imaging Date Name Status LastModified by Organization Details LastModified Time 03/03/2024 electrocardiogram completed [email or web address] [address], [address] 03/03/2024 20:32:30 Procedure Notes None recorded. Medical Equipment None Reported. Allergies Allergen ID Allergen Name Allergen Category Reaction Reaction Severity Criticality Documentation Date Start Date Code Code System Note Provider Name and Address Organization Details Recorded Time 32770 Celebrex medicatio n Not available Not available Not available 03/03/2024 62524 7 RxNorm Not Available [facility] - production 4 11:11:35 66684 fluvoxami ne maleate medicatio n Not available Not available Not available 03/03/202462251 3 RxNorm Not Available [facility] - production 4 11:11:35 86852 Zoloft medicatio n Not available Not available Not available 03/03/2024 28889 RxNorm Kathy Andrew MD [address] [place] [address],[address], [place], [address], [employer] 4 15:50:43 07767 Tylenol medicatio n Not available Not available Not available 03/03/202459643 3 RxNorm Brandon nt is not truly aller gic to Tylen ol altho ugh it is on her list. She had unint entio christian overd osed on Tylen ol and it cause d liver damag e so she was told to avoid it in the futur e Kathy Andrew MD [address] [place] [address],[address], [place], [address], [employer] 4 15:51:25 Medications Name Sig Start Date [...] /min 98.7 [degF] 96 % 96 % 67183.4 g 149 mm[Hg] 87 mm[Hg] Not Available [employer] [facility] 4 11:55:25 Date Recorded Body weight Body temperature Body height Heart rate Oxygen saturation Oxygen saturation in Arterial blood by Pulse oximetry Respiratory rate Systolic blood pressure Diastolic blood pressure Provider Name and Address Organization Details Last Updated DateTime 4 87873.4 g 98.4 [degF] 160.02 cm 118 /min 98 % 98 % 18 /min 137 mm[Hg] 78 mm[Hg] Not Available [employer] 4 13:03:47 Social History None recorded. Functional Status None recorded. Mental Status None recorded. Family History Nothing Reported. Medical History No medical history recorded. Gynecological HistoryNo gynecological history recorded. Obstetrics History GPAL:G 0 P 0 0 0 0 Past Encounters Encounter ID Performer Location Encounter Start Date Encounter Closed Date Diagnosis/Indication Diagnosis SNOMED-CT Code Diagnosis ICD10 Code Diagnosis Note [id number] Kathy Andrew MD Main - [facility] [address] [place] [phone] 03/03/2024 11:55:19 03/03/2024 23:43:48 Chest discomfort 826562310 R07.89 I have no records showing a PE/cardiac workup. Advised the patient given that she is a middle-age d diabetic with a family history of vascular disease, and there is a minor abnormalit y on her EKG I cannot rule out ACS. Further informed that tachycardi a is often a presentati on for pulmonary embolus and medic /patient and I discussed the need for her to be evaluated in the emergency room for this. She was weighed well aware that middle-age d diabetic women often have atypical chest pain as a presentati on for cardiovasc ular disease. She refused transfer to the ER and verbalizin g clear understand ing of the risks-revi ewed the need for close follow-up. She does not have a PCP appointmen t till the end of March. Advised for any worsening of symptoms (red flags above )she should go immediatel y to the emergency room Patient has ongoing calf pain which still could be a DVT. Advised warm compresses and elevation. Patient has been taking ibuprofen. Advised not to exceed 2400 mg a day/take with food. Given her Celebrex allergy, and regular ibuprofen use, we explained all we could offer was Tylenol. I am concerned that she could have a reaction to the ketorolac and do not want to mix it with significan t ibuprofen use. [id number] Agata Steel MD Main - [facility] [address] [place] [phone] 03/18/2024 13:03:45 03/19/2024 10:11:15 Vertigo [id number] R42 68 year old female with multiple sclerosis, and vertigo, being evaluated for an episode of acute vertigo this morning. Took 12.5 mg of meclizine this morning, which usually helps, but hasn't this time. Denies feeling any respirator y symptoms, fever/chil ls, but did have some emesis after her breakfast this morning. Vertigo is made worse by position changes, still feels it even when lying down. Has had a hard time tolerating PO. Exam notable for normal vital signs, grossly normal neuro exam. Presentati on suggestive of acute vestibular syndrome, not responding to her usual dose of meclizine 12.5. Recommende d a higher dose of meclizine (25 mg), or IV benadryl, +/- IV zofran. Patient opting to try the higher dose of meclizine. Urged to call us back if continues to have symptoms. I have reviewed and agree with the assessment and plan as documented by the pearl fisherman. I provided real-time medical direction for this encounter and was immediatel y available to provide additional phone-base d assistance as needed. We discussed the diagnostic uncertaint y of home visits and associated risks. We discussed the need to seek care urgently/e mergently in the setting of any new or worsening symptoms. Health Concerns Section Related Observation LastModified by Organization Detai ls LastModified Time None Recorded Concern Status LastModified by Organization Details LastModified Time None Recorded Advance Directives Directive None Recorded Payers Encounter Date Sequence Insurance Name Policy Number Policy [place] Covered Member ID [place] Member ID Guarantor Name 03/03/2024 1 [facility] - DOS ON OR AFTER 2022 - MEDICARE [place]AGE [place]/ADV ANTAGE - PPO) Brandy Wise [id number] Brandy Wise 03/18/2024 1 [facility] - DOS ON OR AFTER 2022 - [place] RE[place]/ADV ANTAGE - PPO) Brandy Wise [id number] Brandy Wise Notes Date Note Type Note Provider Name and Address Organization Details Recorded Time 03/03/2024 text/html CRC Nurse Triage Notes (Pilar Briones): Chief Complaints: Chest pain, Leg pain/swelling, Heart rate problems PMH: Multiple Sclerosis, Hypertension Comments: 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 Member is a 68 yr old female , a/o3 , legally blind The patient is calling because her PCP appointment was canceled. She now does not have a PCP as they are not in the network, but she is working on [employer] in March. She has a Migraine [...] s/s and seek emergency treatment if needed Pump Tester Organization Information for Monroe Neal Legal Name: [employer] ? Address: [address] [place] [address], Delivery Agent: Migue Reddy MD CLIA No.: [id number] Pump Tester POC Test Results from Monroe Neal EKG [...] ..................... ..................... ..................... ..................... ..................... ..................... ............... Pump Tester Note From Monroe Neal: [facility] visit for female pt. Pt presents with [...] on palpation of mid calf. Consulted with [facility] Dr. Andrew who ordered EKG and BMP. Blood drawn and BMP results sent to [facility] along with EKG tracing. Dr. Andrew noted t wave inversion and q wave in lead III. Pt explained limitations of workup at home for her complaints and expressed that pt is a good candidate for an atypical presentation of ACS given her comorbidities. Reviewed red flags for ED. Pt education provided. ..................... ..................... ..................... ..................... ..................... ..................... ............... [facility] Consulted: Kathy Andrew ..................... ..................... ..................... ..................... 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 RED flags discussed, and will seek ED if recommended by medic and [facility]. ..................... ..................... ..................... ..................... ..................... ..................... ............... Pump Tester Note From Jhonatan Garcia: [facility] makes pt contact. She answers the door and lets [facility] inside her small apartment. She is ambulating slowly and using furniture to help steady herself as she moves. She is not pale or ashen, her skin is WPD, there is no facial droop or one-sided weakness or slurred speech noted. Pt is not in acute respiratory distress and she is not bleeding anywhere. She clears a chair for [facility] to sit and moves herself to her cushioned chair in her living area and puts her feet up and rests her head on her arm. She recounts for [facility] the events leading up to her call, [...] medications. She consents to evaluation and treatment today.[facility] gathers vital signs and pt is physically assessed. Nothing remarkable is noted upon physical assessment. Eye exam is confounded by pt's inability to keep her eyes open comfortable for long. No tinnitus or ISSA are endorsed at this time. [facility] contacts [facility] and discusses the above assessment findings. [facility] makes several suggestions for the pt to try including taking 25mg-50mg of meclizine, taking one of her prescribed clonazepam, and progressing to IV benadryl if pt feels she needs it. [facility] discusses all options w/ the pt up to and including transport to the ED. Pt expresses a desire to try the increased dose of meclizine. [facility] advises pt of s/s to be aware of up to and including cp, sob, severe issa, n/v/d, or lack of improvement or a worsening of her current s/s. She is instructed to call back or call 911 and go to the nearest ED. Pt says she understands and thanks [facility] for coming.[facility] is clear. Report completed by ELIAS Garcia [id number]. ..................... ..................... ..................... ..................... ..................... ..................... ............... [facility] Consulted: Agata Steel ..................... ..................... ..................... ..................... ..................... ..................... ............... Disposition: Fulfilled Agata Steel MD [address] [place] [address],[address], [place], [address], TAINA - [id number] [facility] 03/18/2024 19:27:25 OBGyn Episode No OBEpisode recorded.
--- OUTSIDE RECORDS SUMMARY | 2024-08-21 15:56 | XMS_ITS | Encounter Summary ---
Author Organization [facility] Address [address] [place] [address] Care Team Providers Care Planting Material Unloader Name Role Phone Acacia Carias MD Primary Care Provider [phone] Acacia Carias MD Primary Care Provider [phone] Acacia Carias MD Unavailable Reason for Visit * Reason Onset Date Comments REFERRAL 03/18/2018 Encounter Details Date Type Department Care Team Description 03/18/2018 Telephone Genetic & Disease Counseling - [address] [address] Elida Martinez PA-C REFERRAL Social History Tobacco Use Types Packs/Day [...] Miscellaneous Notes * Telephone Encounter - Jannet Juárez - 03/18/2018 11:13 AM EST FYI ONLY. Pt canx 03/19/18 genetic counseling visit. I am removing this pt's order from the genetictesting schedule. Order expires 10/1/19,NGUYEN/ PT TO SIGN ABN. Pt contacted insurance. documented in this encounter Plan of Treatment Not on file documented as of this encounter Visit Diagnoses Not on filedocumented in this encounter Care Teams Planting Material Unloader Relationship Specialty Start Date End Date Acacia Carias MD [address] [place] [phone] PCP - General Internal Medicine 09/13/15 04/02/20 Acacia Carias MD [address] [place] [phone] PCP - General 04/03/20 Acacia Carias MD [address] [place] [phone] Internal Medicine 04/03/20 documented as of this encounter
--- OUTSIDE RECORDS SUMMARY | 2024-08-21 15:56 | XMS_ITS | Encounter Summary ---
Author Organization [facility] Address [address] [place] [address] Care Team Providers Care Program Consultant Name Role Phone Acacia Carias MD Primary Care Provider [phone] Acacia Carias MD Primary Care Provider [phone] Acacia Carias MD Unavailable Encounter Details Date Type Department Care Team Description 08/03/2017 [facility] Medical Records [address] [place] [phone] Abstract, Provider Social History Tobacco Use Types [...] on filedocumented in this encounter Care Teams Program Consultant Relationship Specialty Start Date End Date Acacia Carias MD [address] [place] [address] [phone] PCP - General Internal Medicine 09/13/15 04/02/20 Acacia Carias MD [address] [place] [address] [phone] PCP - General 04/03/20 Acacia Carias MD [address] [place] [address] [phone] Internal Medicine 04/03/20 documented as of this encounter
--- OUTSIDE RECORDS SUMMARY | 2024-08-21 15:57 | XMS_ITS | Encounter Summary ---
Author Organization [facility] Address [address] [place] [address] Care Team Providers Care Inspection And Testing Supervisor Name Role Phone Acacia Carias MD Primary Care Provider [phone] Acacia Carias MD Primary Care Provider [phone] Acacia Carias MD Unavailable Encounter Details Date Type Department Care Team Description 07/04/2016 [facility] Report Medical Records [address] [place] [phone] Vanessa Sanon MD Social History Tobacco Use [...] on filedocumented in this encounter Care Teams Inspection And Testing Supervisor Relationship Specialty Start Date End Date Acacia Carias MD [address] [place] [phone] PCP - General Internal Medicine 09/13/15 04/02/20 Acacia Carias MD [address] [place] [phone] PCP - General 04/03/20 Acacia Carias MD [address] [place], [place] [phone] Internal Medicine 04/03/20 documented as of this encounter
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
--- OUTSIDE RECORDS SUMMARY | 2024-08-21 15:57 | XMS_ITS | Encounter Summary ---
Author Organization [facility] Address [address] [place] [address] Care Team Providers Care Clinical Dietician Name Role Phone Acacia Carias MD Primary Care Provider [phone] Acacia Carias MD Primary Care Provider [phone] Acacia Carias MD Unavailable Encounter Details Date Type Department Care Team Description 10/27/2016 Hospital Medical Records [address] [place] [phone] Keith Wiggins MD Social History Tobacco Use Types Packs/Day [...] on filedocumented in this encounter Care Teams Clinical Dietician Relationship Specialty Start Date End Date Acacia Carais MD [address] [place] [address] [phone] PCP - General Internal Medicine 09/13/15 04/02/20 Acacia Carias MD [address] [place] [address] [phone] PCP - General 04/03/20 Acacia Carias MD [address] [place], [place] [phone] Internal Medicine 04/03/20 documented as of this encounter
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
--- OUTSIDE RECORDS SUMMARY | 2024-08-21 15:57 | XMS_ITS | Encounter Summary ---
Author Organization [facility] Address [address] [place] [address] Care Team Providers Care Manager Agriculture Name Role Phone Acacia Carias MD Primary Care Provider [phone] Acacia Carias MD Primary Care Provider [phone] Acacia Carias MD Unavailable Encounter Details Date Type Department Care Team Description 10/27/2016 Hospital Medical Records [address] [place] [id number] Abstract, Provider Social History Tobacco Use Types [...] on filedocumented in this encounter Care Teams Manager Agriculture Relationship Specialty Start Date End Date Acacia Carias MD [address] [place] [address] [phone] PCP - General Internal Medicine 09/13/15 04/02/20 Acacia Carias MD [address] [place] [address] [phone] PCP - General 04/03/20 Acacia Carias MD [address] [place] [address] [phone] Internal Medicine 04/03/20 documented as of this encounter
--- OUTSIDE RECORDS SUMMARY | 2024-08-21 15:57 | XMS_ITS | Encounter Summary ---
Author Organization [facility] Address [address] [place] [address] Care Team Providers Care Repair Mechanic Name Role Phone Acacia Carias MD Primary Care Provider [phone] Acacia Carias MD Primary Care Provider [phone] Acacia Carias MD Unavailable Encounter Details Date Type Department Care Team Description 07/10/2018 Orders Only Adult Medicine [address] [phone] José Luis Mitchell NP Social History Tobacco Use Types Packs/Day Years [...] on filedocumented in this encounter Care Teams Repair Mechanic Relationship Specialty Start Date End Date Acacia Carias MD [address] [place] [address] [phone] PCP - General Internal Medicine 09/13/15 04/02/20 Acacia Carias MD [address] [place] [address] [phone] PCP - General 04/03/20 Acacia Carias MD [address] [place] [address] [phone] Internal Medicine 04/03/20 documented as of this encounter
== END 2024-08-21 14:35 | disposition home or self-care (01) ==
LOC: HO.HMCH 13:34
DX: I10 Essential (primary) hypertension (principal); F41.1 Generalized anxiety disorder; H81.10 Benign paroxysmal vertigo, unspecified ear; G35 Multiple sclerosis; Z80.3 Family history of malignant neoplasm of breast; I87.2 Venous insufficiency (chronic) (peripheral)

== ENCOUNTER 2024-09-30 14:02 | Outpatient (AMB) | payer BC, SELFPAY ==
[2024-09-30 14:13] VITALS: BP 120/76; PULSE 102; O2SAT 97; BMI 35.1
--- NOTE | 2024-09-30 14:13 | MHC.PC.OV ---
Vital Signs 09/30/24 14:13 Height 5 ft 3 in Weight 198 lb 6 oz BMI 35.1 BP 120/76 Blood Pressure Location Lt brachial Position Sitting Pulse 102 H Pulse Source Pulse Oximeter Pulse Oximetry (%) 97 Oxygen Delivery Method Room Air Intake Visit Reasons: annual exam f/u vertigo Plant Operations Vice President Required: No Accompanied by: Self / Same As Patient Allergies celecoxib [From CELEBREX] Allergy (Severe, Verified 09/30/24 14:50) RASH AND DIFFICULTY BREATHING fluvoxamine [From LUVOX] Allergy (Severe, Verified 09/30/24 14:50) GRAND MAL SEIZURE acetaminophen [From TYLENOL] Allergy (Intermediate, Verified 09/30/24 14:50) LIVER TOX sertraline [From ZOLOFT] Allergy (Intermediate, Verified 09/30/24 14:50) ABD PAIN Medication List - Last Reconciled 09/30/24 by Pascale Murray PA-C atorvastatin 10 mg PO DAILY cholecalciferol (vitamin D3) 50 mcg PO DAILY fluticasone propion-salmeterol 500-50 mcg/dose 1 ea inhalation BID fluticasone propionate 50 mcg/actuation (Flonase Allergy Relief) 1 spray intranasal DAILY furosemide 20 mg PO DAILY hydrochlorothiazide 25 mg PO DAILY ibuprofen 800 mg PO TID PRN lidocaine 5% 1 patch topical DAILY loratadine (Claritin) 10 mg PO DAILY losartan 25 mg PO DAILY meclizine 12.5 mg PO TID PRN 30 days metformin ER 500 mg PO DAILY methocarbamol 500 mg PO BEDTIME PRN omeprazole 20 mg PO DAILY oxymetazoline 0.05% (Afrin (oxymetazoline)) 2 sprays intranasal Q12H PRN 3 days tranylcypromine 40 mg PO QAM valacyclovir 1,000 mg PO TID Tobacco use date assessed: 09/30/24 Fall risk assessment: 2 + Falls in past year Last assessed Fall Risk: 09/30/24 Dental Screening Dental Screen Date: 09/30/24 Did you have a dental visit in the last 12 months?: No Did you have a dental problem in the last 6 months where you did not have access to dental care?: No Was dental information given to patient?: No HPI annual exam f/u vertigo HPI Details 68-year-old female with past medical history of of multiple sclerosis, urine incontinence, BPPV, thyroid nodule, generalized anxiety disorder, hypertension, hypercholesterolemia, diabetes mellitus last seen 07/2024 coming in for annual exam. Presenting with vertigo and annual exam. Her vertigo has improved slightly but remains problematic alongside chronic sinusitis symptoms, including clear nasal discharge and ear pain chiefly in the right ear. She has a significant concern about her hyperglycemia following Solu-Medrol infusions, reporting levels as high as 500 mg/dL post-infusion. She has been discussing this with her neurologist and new plan of action is being made. There is a notable history of thyroid nodules, previously resulting in partial thyroidectomy, with a current requirement for endocrinological follow-up. Her chronic stress is exacerbated by her grandson?s chronic health issues, including XLMTM and cerebral palsy. She reports discontinuation of an MAOI medication last year due to health concerns, though has had stability on it when previously managed. She is not interested in restarting this medication right now. She did have to cancel her ultrasound for her right leg as well as the mammogram and bone density scan due to episodes of vertigo. mammogram: due last done 2022 bone density: due last done 2020 colonoscopy: Cologuard order placed [facility] Medical History Herniated disc Ectopic Blindness Bipolar 2 disorder PTSD (post-traumatic stress disorder) MDD (major depressive disorder) Asthma Surgical History Hx of rotator cuff surgery Social History Housing: Apartment Alcohol intake: current Alcohol intake frequency: a few times a week Patient Tobacco Use Status: Former Tobacco user Tobacco use type: Cigarette e-Cigarette/Vaping Use: Never Used Second Hand Smoke Exposure: No service: No Current occupational status: retired and disabled Gender identity: Female Cognitive needs: Yes Hearing needs: Yes (had hearing test two year ago pt states 25% of hearing loss.) Vision needs: Yes Questionnaire PHQ-9 Over the last 2 weeks, how often have you been bothered by any of the following problems? 1. Little interest or pleasure in doing things: nearly every day 2. Feeling down, depressed, or hopeless: several days 3. Trouble falling or staying asleep, or sleeping too much: nearly every day 4. Feeling tired or having little energy: more than half the days 5. Poor appetite or overeating: more than half the days 6. Feeling bad about yourself - or that you are a failure or have let yourself or your family down: not at all 7. Trouble concentrating on things, such as reading the newspaper or watching television: nearly every day 8. Moving or speaking so slowly that other people could have noticed. Or the opposite - being so fidgety or restless that you have been moving around a lot more than usual: more than half the days 9. Thoughts that you would be better off or of hurting yourself in some way: not at all Total score: 16 Depression Screening Interpretation: Positive Depression Screening Follow-up: Existing condition and Declines treatment Depression Screening Done: Yes Source: Developed by Drs. Germán Hernandez, Henrietta Vitale, Danis Ha and colleagues, with an educational terence from [employer]. Thrive Questionnaire Date Thrive assessed: 09/30/24 I am a: Patient What is your living situation today?: I have a place to live, but I am worried about losing it in the future Within the past 12 months, did the food you bought not last and you didn't have the money to get more?: Often true Within the past 12 months, did you worry whether your food would run out before you got money to buy more?: Often true Do you have trouble paying for medicines?: I choose not to answer this question Do you have trouble getting transportation to medical appointments?: Yes Do you have trouble paying your heating and electricity bill?: I choose not to answer this question Do you have trouble taking care of your child, family member or friend?: Yes Do you have trouble with day-to-day activities such as bathing, preparing meals, shopping, managing finances, etc.?: Yes Are you currently unemployed and looking for a job?: I choose not to answer this question Are you interested in more education?: No THRIVE Score: 4 AUDIT C Alcohol Use Questionnaire (AUDIT-C) 1. How often do you have a drink containing alcohol?: 2-4 times a month 2. How many drinks containing alcohol do you have on a typical day when you are drinking?: 1 or 2 3. How often do you have six or more drinks on one occasion?: Never Total Score: 2 TRAV-7 AMB Questionnaire TRAV-7 Date TRAV - 7 assessed: 09/30/24 Feeling nervous, anxious, or on edge: 3 = Nearly every day Not being able to stop or control worryin = Nearly every day Worrying too much about different things: 3 = Nearly every day Trouble relaxin = Nearly every day Being so restless that it is hard to sit still: 2 = More than half the days Becoming easily annoyed or irritable: 3 = Nearly every day Feeling afraid as if something awful might happen: 2 = More than half the days Total TRAV-7 score (0-4 normal; 5-9 mild; 10-14 moderate; 15-21 severe): 19 Source: Developed by Drs. Germán Hernandez, Henrietta Vitale, Danis Ha and colleagues, with an educational terence from [employer]. Review of Systems Const Denies body aches, Denies chills, Denies fever(s), Reports headache(s) (occasional in the AM ) and Denies poor appetite Eyes Reports no additional complaints ENT Reports dizziness (w/ vertigo) and Reports headache(s) (occasional in the AM ) Card Denies chest pain, Denies edema, Denies irregular heart rhythm, Denies lightheadedness and Denies dyspnea Resp Denies cough and Denies dyspnea GI Denies abdominal pain, Denies constipation, Denies diarrhea, Denies nausea and Denies vomiting Reports no additional complaints Musc Reports abnormal gait Skin/Breast Reports system reviewed and no additional complaints, except as documented Neuro Reports abnormal gait, Reports dizziness (w/ vertigo) and Reports headache(s) (occasional in the AM ) Psych Reports no additional complaints Physical exam (Primary Care) Vital Signs: Last Vital Signs Pulse 102 H 09/30/24 14:13 BP 120/76 09/30/24 14:13 Pulse Ox 97 09/30/24 14:13 Oxygen Delivery Method Room Air 09/30/24 14:13 BMI result Body Mass Index 35.1 Tobacco/Smoking Status: Tobacco use Status Tobacco use date assessed 09/30/24 09/30/24 14:17 Patient Tobacco Use Status Former Tobacco user 09/30/24 14:17 Tobacco use type Cigarette 09/30/24 14:17 e-Cigarette/Vaping Use Never Used 09/30/24 14:17 PHQ-9: PHQ-9 Score PHQ-9: Total score 16 09/30/24 16:59 Depression Screening Interpretation: Positive Depression Screening Follow-up: Existing condition and Declines treatment Thrive Assessment: Date of Thrive Assessment Date Thrive assessed 09/30/24 09/30/24 14:17 Const General: cooperative, healthy appearing, comfortable and no acute distress Orientation/consciousness: patient oriented x3 HENMT Head: Yes normocephalic Ears: hearing grossly normal bilaterally, TM's normal bilaterally and EAC's normal General nose exam: Normal external nose present Face and sinus: Yes normal facial exam and Yes sinuses nontender Mouth: Normal oral and palatal mucosa present and tongue normal Throat: Yes posterior oropharynx normal Eyes General: appearance normal, both eyes and all related structures Conjunctivae: conjunctivae normal Pupils: Equal, round and reactive pupils present EOM: EOMs intact bilaterally and No Nystagmus present Neck Neck: Yes full ROM and Yes no lymphadenopathy Chest Chest palpation & inspection: normal inspection of the chest Resp Effort & Inspection: normal respiratory effort Auscultation: clear to auscultation bilaterally, no crackles, no rales, no rhonchi and no wheezes Cardio Rate: regular rate Rhythm: regular rhythm Peripheral pulses: radial pulses present and dorsalis pedis present GI Inspection: Yes normal to inspection and No Abdominal wall edema Palpation (GI): Soft to palpation, not firm and nontender Auscultation: normal bowel sounds Rectal Exam - Female: deferred General: Yes no CVA tenderness Back/Spine/Pelvis Back: no CVA tenderness Skin General skin exam: no rashes or lesions noted Neuro General: patient oriented x3 Cranial nerves: Yes Equal, round and reactive pupils present, Yes Midline tongue present, Yes Ability to bilaterally elevate shoulders present and No Nystagmus present Gait exam (Neuro): Normal gait present Extrem General: Yes normal to inspection, Yes full ROM and No edema Psych Speech and movement: Normal speech and movement present Affect: normal affect Attitude: cooperative Insight: Good insight present (Psych) Judgement: Good judgement present (Psych) Coding Level of Care Code Est Pt Level 3 (46560) Est Pt Prev Care >65y(95503) Diagnoses Annual physical exam Z00.00 Hypertension I10 Hypercholesterolemia E78.00 Diabetes mellitus E11.9 Generalized anxiety disorder F41.1 BPPV (benign paroxysmal positional vertigo) H81.10 Multiple sclerosis G35 Atypical nevi D22.9 Thyroid nodule E04.1 Venous insufficiency I87.2 Assessment & Plan Assessment & Plan (1) Annual physical exam: Code(s): Z00.00 - Encounter for general adult medical examination without abnormal findings Category: Medical Plan: Patient is overdue for mammogram and bone density scan I did update the referrals for these as she did have to cancel. She is up-to-date on her blood work which has been reviewed with the patient today. Healthy diet and regular exercise is encouraged. (2) Hypertension: Code(s): I10 - Essential (primary) hypertension Category: Medical Plan: Continue on current blood pressure medication. Avoid salt intake and encourage healthy diet and regular exercise. (3) Hypercholesterolemia: Code(s): E78.00 - Pure hypercholesterolemia, unspecified Category: Medical Plan: Avoid foods that are high in cholesterol such as red meat, fried foods, eggs and baked goods. Triglyceride goal of less than 150 and LDL goal of less than 100. Continue on atorvastatin 10 (4) Diabetes mellitus: Code(s): E11.9 - Type 2 diabetes mellitus without complications Category: Medical Plan: Decrease the amount of carbohydrates such as pasta, bread, rice, and potatoes and limit the amount of sweets. Although fruits are generally healthy they should be eaten in moderation as they are still high in sugar. Hemoglobin A1c goal of less than 7%. Continue on metformin 500mg. Reminded patient about blood work (5) Generalized anxiety disorder: Code(s): F41.1 - Generalized anxiety disorder Category: Medical Plan: Previously on a MAOI medication and found this beneficial however she would like to hold off on restarting this. She does endorse high amounts of anxiety and depression surrounding her grandson's conditions. Declining referral for counseling today (6) BPPV (benign paroxysmal positional vertigo): Code(s): H81.10 - Benign paroxysmal vertigo, unspecified ear Category: Medical Plan: Patient's vertigo is well controlled at this time she does have a standing order for physical therapy for vestibular therapy. She has seen ear nose and throat in April and agrees to reach out if she should need additional support. (7) Multiple sclerosis: Comment: Dr. Sanon Code(s): G35 - Multiple sclerosis Category: Medical Plan: Patient is currently following with but would like to switch neurologist. She needs a referral for insurance purposes to Dr. Thorpe which was placed today and additional referral was placed to neurology of her choice at [facility]. She does have an EEG ordered with Dr. Sanon and she will continue to follow with our office until she can establish care with a new neurologist. Plan to obtain these notes (8) Atypical nevi: Code(s): D22.9 - Melanocytic nevi, unspecified Category: Medical Plan: Patient has multiple atypical nevi and is looking for referral to Dermatology which was placed today (9) Thyroid nodule: Code(s): E04.1 - Nontoxic single thyroid nodule Category: Medical Plan: Patient having history of thyroid nodules she would like to establish with a new ironworker machine operator and referral was placed today. (10) Venous insufficiency: Code(s): I87.2 - Venous insufficiency (chronic) (peripheral) Category: Medical Plan: Patient has a history of venous insufficiency evaluation with ultrasound was ordered at last visit and has not been scheduled as the patient was experiencing vertigo. Updated the referral today. No lower extremity swelling, skin changes or pain. Plan This visit focused on addressing vertigo and broader health management. I provided rescheduled referrals for missed mammograms and bone density tests. A1c and cholesterol levels are to be checked to monitor hyperglycemia concerns, especially post Solu-Medrol infusions. Given previous stable MRI lesions, there are no new medications prescribed for those findings. Endocrinology will assess thyroid nodule status, considering the patient's history of partial thyroidectomy and ongoing concern for growth. Care involves standardizing the timelines for dermatology and endocrinology evaluations and feedback during follow-ups on potential stress management. This note was constructed using voice recognition software. While every effort has been made to ensure accuracy and outboard motors experimental mechanic, still areas may have been included sometimes these areas may affect the content or meeting of the given symptoms. Total time spent caring for the patient today was 45 minutes. This includes time spent before the visit reviewing the chart, time spent during the visit, and time spent after the visit and documentation. Patient was informed and verbally consented to the use of an ambient scribe for clinic note documentation during this visit. Orders: Orders Lipid Panel 09/30/24 E78.00 - Pure hypercholesterolemia, unspecified MM tomosynthesis screening BI 09/30/24 Z12.31 - Encounter for screening mammogram for malignant neoplasm of breast XR DEXA axial skeleton 09/30/24 Z78.0 - Asymptomatic menopausal state Microalbumin, Random (w Creat) 09/30/24 E11.9 - Type 2 diabetes mellitus without complications Hemoglobin A1c 09/30/24 E11.65 - Type 2 diabetes mellitus with hyperglycemia Referrals Neurology Referral G35 - Multiple sclerosis, H81.10 - Benign paroxysmal vertigo, unspecified ear Endocrinology Referral E04.1 - Nontoxic single thyroid nodule Neurology Referral G35 - Multiple sclerosis Dermatology Referral D22.9 - Melanocytic nevi, unspecified
--- OUTSIDE RECORDS SUMMARY | 2024-09-30 15:50 | XMS_ITS | Encounter Summary ---
Author Organization [facility] Address [address] [place] [address] Care Team Providers Care Service Order Expediter Name Role Phone Acacia Carias MD Primary Care Provider [phone] Acacia Carias MD Primary Care Provider [phone] Acacia Carias MD Unavailable Encounter Details Date Type Department Care Team Description 06/25/2017 Orders Only Radiology - [address] [id number] Acacia Carias MD [address] [place] [address] [phone] Social History Tobacco Use Types Packs/Day Years [...] on filedocumented in this encounter Care Teams Service Order Expediter Relationship Specialty Start Date End Date Acacia Carias MD [address] [place] [phone] PCP - General Internal Medicine 09/13/15 04/02/20 Acacia Carias MD [address] [place] [address] [id number] PCP - General 04/03/20 Acacia Carias MD [address] [place] [address] [id number] Internal Medicine 04/03/20 documented as of this encounter
== END 2024-09-30 15:27 | disposition home or self-care (01) ==
LOC: HO.HMCH 14:04
DX: Z00.00 Encounter for general adult medical examination without abnormal findings (principal); E11.9 Type 2 diabetes mellitus without complications; G35 Multiple sclerosis; H81.11 Benign paroxysmal vertigo, right ear; I10 Essential (primary) hypertension; E78.00 Pure hypercholesterolemia, unspecified; F41.1 Generalized anxiety disorder; D22.9 Melanocytic nevi, unspecified; E04.1 Nontoxic single thyroid nodule; I87.2 Venous insufficiency (chronic) (peripheral)

== ENCOUNTER → 2024-09-30 14:02 | Outpatient (BNVA) | payer BC, SELFPAY | DX: Z13.89 Encounter for screening for other disorder (principal) ==

== ENCOUNTER 2024-12-31 14:02 | Outpatient (AMB) | payer BC, SELFPAY ==
--- NOTE | 2024-12-31 14:04 | A.OFFPC_ITS ---
Vital Signs 12/31/24 14:05 Height 5 ft 3 in Weight 204 lb 4 oz BMI 36.2 BP 130/82 Blood Pressure Location Lt brachial Position Sitting Pulse 102 H Pulse Source Pulse Oximeter Pulse Oximetry (%) 98 Oxygen Delivery Method Room Air Intake Visit Reasons: f/u DM Filing Machine Operator Required: No Accompanied by: Self / Same As Patient Allergies celecoxib (From CELEBREX) Allergy (Severe, Verified 12/31/24 14:23) RASH AND DIFFICULTY BREATHING fluvoxamine (From LUVOX) Allergy (Severe, Verified 12/31/24 14:23) GRAND MAL SEIZURE acetaminophen (From TYLENOL) Allergy (Intermediate, Verified 12/31/24 14:23) LIVER TOX sertraline (From ZOLOFT) Allergy (Intermediate, Verified 12/31/24 14:23) ABD PAIN Medication List - Last Reconciled 12/31/24 by Pascale Murray PA-C atorvastatin 10 mg PO DAILY cholecalciferol (vitamin D3) 50 mcg PO DAILY flunisolide 1 spray intranasal DAILY fluticasone propion-salmeterol 500-50 mcg/dose 1 ea inhalation BID furosemide 20 mg PO DAILY hydrochlorothiazide 25 mg PO DAILY ibuprofen 800 mg PO TID PRN lidocaine 5% 1 patch topical DAILY loratadine (Claritin) 10 mg PO DAILY losartan 25 mg PO DAILY meclizine 12.5 mg PO TID PRN 30 days metformin ER 500 mg PO DAILY methocarbamol 500 mg PO BEDTIME PRN Tobacco use date assessed: 12/31/24 Fall risk assessment: 2 + Falls in past year Last assessed Fall Risk: 12/31/24 Dental Screening Dental Screen Date: 12/31/24 Did you have a dental visit in the last 12 months?: No Did you have a dental problem in the last 6 months where you did not have access to dental care?: No Was dental information given to patient?: No HPI f/u DM HPI Details 69-year-old female with past medical his tory of of multiple sclerosis, urine incontinence, BPPV, thyroid nodule, generalized anxiety disorder, hypertension, hypercholesterolemia, diabetes mellitus last seen 09/2024 coming in for follow up. In review of the notes, patient was seen by neurology 08/2024 started on Azathioprine and ordered for EEG. Presenting with chronic back pain, hypertension, and breast cancer risk evaluation. Chronic back pain has been persistent since an unspecified time, with no specific inciting event mentioned. Hypertension has been noted with episodes of high blood pressure and heart rate, leading to a recommendation for emergency room visits, though the patient was unable to comply due to illness. The patient has a family history of breast cancer, with two sisters diagnosed, prompting concerns about her own risk and consideration for genetic testing. Basal cell carcinoma was diagnosed following a skin biopsy, with follow-up scheduled to ensure proper healing. A complex ovarian cyst was identified in 2020, noted to be stable with no significant changes over time. The patient reports non-compliance with medication, particularly with blood pressure medications, due to side effects and inconvenience. [facility] Medical History Herniated disc Ectopic Blindness Bipolar 2 disorder PTSD (post-traumatic stress disorder) MDD (major depressive disorder) Asthma Surgical History Hx of rotator cuff surgery Family History Sister Breast cancer Sister Breast cancer Brother Heart attack Mother Stroke Father Heart problem Borderline high blood pressure Social History Housing: Apartment Alcohol intake: current Alcohol intake frequency: a few times a week Patient Tobacco Use Status: Former Tobacco user Tobacco use type: Cigarette e-Cigarette/Vaping Use: Never Used Second Hand Smoke Exposure: No service: No Current occupational status: retired and disabled Gender identity: Female Cognitive needs: Yes Hearing needs: Yes (had hearing test two year ago pt states 25% of hearing loss.) Vision needs: Yes Questionnaire PHQ-9 Over the last 2 weeks, how often have you been bothered by any of the following problems? 1. Little interest or pleasure in doing things: nearly every day 2. Feeling down, depressed, or hopeless: several days 3. Trouble falling or staying asleep, or sleeping too much: nearly every day 4. Feeling tired or having little energy: more than half the days 5. Poor appetite or overeating: more than half the days 6. Feeling bad about yourself - or that you are a failure or have let yourself or your family down: not at all 7. Trouble concentrating on things, such as reading the newspaper or watching television: nearly every day 8. Moving or speaking so slowly that other people could have noticed. Or the opposite - being so fidgety or restless that you have been moving around a lot more than usual: more than half the days 9. Thoughts that you would be better off or of hurting yourself in some way: not at all Total score: 16 Depression Screening Interpretation: Positive Depression Screening Follow-up: Existing condition and Declines treatment Depression Screening Done: Yes Source: Developed by Drs. Germán Hernandez, Henrietta Vitale, Danis Ha and colleagues, with an educational terence from [employer]. Thrive Questionnaire Date Thrive assessed: 08/21/24 I am a: Patient What is your living situation today?: I have a place to live, but I am worried about losing it in the future Within the past 12 months, did the food you bought not last and you didn't have the money to get more?: Often true Within the past 12 months, did you worry whether your food would run out before you got money to buy more?: Often true Do you have trouble paying for medicines?: I choose not to answer this question Do you have trouble getting transportation to medical appointments?: Yes Do you have trouble paying your heating and electricity bill?: I choose not to answer this question Do you have trouble taking care of your child, family member or friend?: Yes Do you have trouble with day-to-day activities such as bathing, preparing meals, shopping, managing finances, etc.?: Yes Are you currently unemployed and looking for a job?: I choose not to answer this question Are you interested in more education?: No Currently or been in a relationship where the following occur: I choose not to answer THRIVE Score: 4 AUDIT C Alcohol Use Questionnaire (AUDIT-C) 1. How often do you have a drink containing alcohol?: 2-4 times a month 2. How many drinks containing alcohol do you have on a typical day when you are drinking?: 1 or 2 3. How often do you have six or more drinks on one occasion?: Never Total Score: 2 TRAV-7 AMB Questionnaire TRAV-7 Date TRAV - 7 assessed: 09/30/24 Feeling nervous, anxious, or on edge: 3 = Nearly every day Not being able to stop or control worryin = Nearly every day Worrying too much about different things: 3 = Nearly every day Trouble relaxin = Nearly every day Being so restless that it is hard to sit still: 2 = More than half the days Becoming easily annoyed or irritable: 3 = Nearly every day Feeling afraid as if something awful might happen: 2 = More than half the days Total TRAV-7 score (0-4 normal; 5-9 mild; 10-14 moderate; 15-21 severe): 19 Source: Developed by Drs. Germán Hernandez, Henrietta Vitale, Danis Ha and colleagues, with an educational terence from [employer]. Review of Systems Const Denies body aches, Denies fatigue, Denies fever(s), Denies frequent falls, Denies headache(s) and Denies weakness Eyes Reports no additional complaints and Denies change in vision ENT Denies dysphagia, Denies dizziness, Denies facial pain, Denies headache(s), Denies nasal congestion and Denies odynophagia Card Denies chest pain, Denies syncope, Denies irregular heart rhythm, Denies leg edema, Denies lightheadedness and Denies dyspnea Resp Denies cough and Denies dyspnea GI Denies dysphagia, Denies dyspepsia, Denies nausea, Denies odynophagia and Denies vomiting Denies urinary frequency, Denies dysuria, Denies urinary hesitancy and Denies urinary urgency Musc Denies back pain and Denies myalgias Skin/Breast Reports system reviewed and no additional complaints, except as documented Neuro Denies dizziness, Denies syncope, Denies frequent falls, Denies headache(s) and Denies weakness Psych Reports no additional complaints Endo Denies fatigue Physical exam (Primary Care) Vital Signs: Last Vital Signs Pulse 102 H 12/31/24 14:05 BP 130/82 12/31/24 14:05 Pulse Ox 98 12/31/24 14:05 Oxygen Delivery Method Room Air 12/31/24 14:05 BMI result Body Mass Index 36.2 Tobacco/Smoking Status: Tobacco use Status Tobacco use date assessed 12/31/24 12/31/24 14:20 Patient Tobacco Use Status Former Tobacco user 12/31/24 14:20 Tobacco use type Cigarette 12/31/24 14:20 e-Cigarette/Vaping Use Never Used 12/31/24 14:20 PHQ-9: PHQ-9 Score PHQ-9: Total score 16 12/31/24 16:19 Depression Screening Interpretation: Positive Depression Screening Follow-up: Existing condition and Declines treatment Thrive Assessment: Date of Thrive Assessment Date Thrive assessed 08/21/24 12/31/24 14:20 Currently or been in a relationship where the following occur: I choose not to answer Const General: cooperative, healthy appearing, comfortable and no acute distress Orientation/consciousness: patient oriented x3 HENMT Head: Yes normocephalic Ears: hearing grossly normal bilaterally General nose exam: Normal external nose present Eyes General: appearance normal, both eyes and all related structures Conjunctivae: conjunctivae normal Neck Neck: Yes full ROM and Yes no lymphadenopathy Resp Effort & Inspection: normal respiratory effort Auscultation: clear to auscultation bilaterally, no crackles, no rales, no rhonchi and no wheezes Cardio Rate: regular rate Rhythm: regular rhythm Skin General skin exam: no rashes or lesions noted Neuro General: patient oriented x3 Gait exam (Neuro): Normal gait present Extrem General: Yes normal to inspection, Yes full ROM and No edema Psych Affect: normal affect Attitude: cooperative Insight: Good insight present (Psych) Judgement: Good judgement present (Psych) Results AMB Hemoglobin A1c AMB Hemoglobin A1c 5.8 % Last Edit by Chris Barrios MA on 12/31/24 14:54 Results Reviewed Results Reviewed: Laboratory Last Values Hgb A1c (Clinic) 5.8 % (4.0-6.0) 12/31/24 14:26 Coding Level of Care Code Tele Est Pt Level 4 (66621) Diagnoses Hypertension I10 Tachycardia R00.0 Family history of BRCA gene positive Z84.81 Basal cell carcinoma C44.91 Hypercholesterolemia E78.00 Diabetes mellitus E11.9 Multiple sclerosis G35 Stutter F80.81 Assessment & Plan Assessment & Plan (1) Hypertension: Code(s): I10 - Essential (primary) hypertension Category: Medical Plan: With the patient's blood pressure she is currently on hydrochlorothiazide and losartan. She has been having low blood pressures at home and the less than 110/60 range. She is currently without her blood pressure medication and blood pressure is 130/82. Plan at this time to discontinue losartan and continue on hydrochlorothiazide 12.5 mg. She will continue on hydrochlorothiazide 12.5 mg until she can obtain the new prescription of metoprolol as she does received for medication through mail in pharmacy which can sometimes take several weeks. Once metoprolol is obtainable she will discontinue the hydrochlorothiazide and start on 25 mg for management of blood pressure and her tachycardia. Her EKG did reveal normal sinus tachycardia. Referral was also placed to cardiology at patient request today. Patient understands the plan and she will continue to monitor blood pressure at home reach out to the portal. (2) Tachycardia: Code(s): R00.0 - Tachycardia, unspecified Category: Medical Plan: EKG showing normal sinus tachycardia. See above plan. (3) Family history of BRCA gene positive: Comment: both sisters + and + breast cancer history Code(s): Z84.81 - Family history of carrier of genetic disease Category: Medical Plan: Referral was placed to [facility] today. (4) Basal cell carcinoma: Comment: right cheek Code(s): C44.91 - Basal cell carcinoma of skin, unspecified Category: Medical Plan: She will continue to follow with dermatology at this time. (5) Hypercholesterolemia: Code(s): E78.00 - Pure hypercholesterolemia, unspecified Category: Medical Plan: Avoid foods that are high in cholesterol such as red meat, fried foods, eggs and baked goods. Triglyceride goal of less than 150 and LDL goal of less than 130. Continue on Atorvastatin (6) Diabetes mellitus: Code(s): E11.9 - Type 2 diabetes mellitus without complications Category: Medical Plan: Decrease the amount of carbohydrates such as pasta, bread, rice, and potatoes and limit the amount of sweets. Although fruits are generally healthy they should be eaten in moderation as they are still high in sugar. A1c at goal today. (7) Multiple sclerosis: Comment: Dr. Sanon Code(s): G35 - Multiple sclerosis Category: Medical Plan: She is requesting referral to be seen Neurology as she would like to switch providers and referral was placed today. She will continue on current medication regimen at this time and continue to follow with Dr. Sanon until transfer can be made (8) Stutter: Code(s): F80.81 - Childhood onset fluency disorder Category: Medical Plan: She is requesting a referral to speech pathology today as she is suffering from a stutter and would like speech therapy. Referral was placed today Plan During the visit, we discussed the management of chronic back pain and hypertension, including medication adjustments to improve compliance and control heart rate. We also addressed the patient's breast cancer risk due to family history, recommending genetic counseling and BRCA testing. Follow-up for basal cell carcinoma was planned to monitor healing and prevent recurrence. The pa mary carmen was advised on the importance of medication adherence and the potential need for further interventions based on upcoming test results. This note was constructed using voice recognition software. While every effort has been made to ensure accuracy and strike out machine operator, still areas may have been included sometimes these areas may affect the content or meeting of the given symptoms. Total time spent caring for the patient today was 40 minutes. This includes time spent before the visit reviewing the chart, time spent during the visit, and time spent after the visit and documentation. Patient was informed and verbally consented to the use of an ambient scribe for clinic note documentation during this visit. Orders: Orders AMB Hemoglobin A1c 12/31/24 E11.9 - Type 2 diabetes mellitus without complications ECG 12 lead EKG 12/31/24 R00.0 - Tachycardia, unspecified Referrals Neurology Referral G35 - Multiple sclerosis, H81.10 - Benign paroxysmal vertigo, unspecified ear Ophthalmology Referral G35 - Multiple sclerosis, Z00.00 - Encounter for general adult medical examination without abnormal findings Cardiology Referral I10 - Essential (primary) hypertension, R00.0 - Tachycardia, unspecified Genetics Referral Z80.3 - Family history of malignant neoplasm of breast, Z84.81 - Family history of carrier of genetic disease Speech and Hearing Referral F80.81 - Childhood onset fluency disorder Medications: New hydrochlorothiazide 12.5 mg PO DAILY 90 tabs 0RF R00.0 - Tachycardia, unspecified metoprolol tartrate 25 mg PO DAILY 30 tabs 0RF Discontinued losartan Discontinued Reason: Patient no longer taking 25 mg PO DAILY 90 tabs 2RF hydrochlorothiazide Discontinued Reason: Patient no longer taking 25 mg PO DAILY 90 tabs 2RF
[2024-12-31 14:05] VITALS: BP 130/82; PULSE 102; O2SAT 98; BMI 36.2
--- OUTSIDE RECORDS SUMMARY | 2024-12-31 16:18 | XMS_ITS | Clinical Summary ---
Author Organization [facility] Address [address] [place] [phone] Phone Care Team Providers Care Camp Coordinator Name Role Phone Pcp, Unknown Primary Care Provider Unavailabl e Allergies Active Allergy Reactions Criticality Noted Date Comments Celebrex (Celecoxib) Hives 05/21/2014 Luvox (Fluvoxamine) Unknown 05/21/2014 Sertraline 10/23/2023 Medications metFORMIN (FORTAMET) 1000 MG (OSM) 24 hr tablet Take by mouth daily with dinner. Active losartan (COZAAR) 25 MG tablet Take by mouth daily. Active hydroCHLOROthiaz dianna 12.5 MG tablet Take by mouth daily. Active meclizine (ANTIVERT) 12.5 mg tablet Take by mouth. Active Active Problems Problem Noted Date Diagnosed Date Disorder of thyroid 05/21/2014 Overview (06/20/2014): Disorder of thyroid gland Hypertensive disorder 05/21/2014 Overview (06/20/2014): Hypertensive disorder Allergic asthma 05/21/2014 Overview (06/20/2014): Allergic asthma Social History Tobacco Use Types Packs/Day Years Used Date Smoking Tobacco: Former Education Answer Date Recorded Are you interested in more education? Not on bell e 10/23/2023 Are you concerned about learning? Not on file 10/23/2023 No 10/23/2023 No 10/23/2023 Digital Access Answer Date Recorded No 10/23/2023 No 10/23/2023 Reliable internet access at home? Not on file 10/23/2023 Device with a working camera? Not on file Intimate Partner Violence Answer Date R ecorded Are you denied basic needs s uch as food, clothing, or medical care? No 03/18/2024 In the past 12 months have y ou been in a relationship with a person who hurts, threatens, or tries to control you? No 03/18/2024 Are you denied basic needs s uch as food, clothing, or medical care? No 03/18/2024 In the past 12 months have y ou been in a relationship with a person who hurts, threatens, or tries to control you? No 03/18/2024 Comments Unknown Sex and Gender Information Value Date Recorded Sex Assigned at Choose not to disclose 5:53 PM EDT Legal Sex Female 10:31 AM EDT Gender Identity Choose not to disclose 5:53 PM EDT Sexual Orientation Don't know 10/23/2023 5: 53 PM EDT Last Filed Vital Signs Vital Sign Reading Time Taken Comments Blood Pressure 147/87 03/19/2024 5:41 AM EST Pulse 91 03/19/2024 5:41 AM EST Temperature 36.3 C (97.3 F) 03/19/2024 5:41 AM EST Respiratory Rate 19 03/19/2024 5:41 AM EST Oxygen Saturation 97% 03/19/2024 5:41 AM EST Inhaled Oxygen Concentration - - Weight 90.7 kg (200 lb) 03/18/2024 9:47 PM EST Height 160 cm (5' 3 ) 03/18/2024 9:47 PM EST Body Mass Index 35.43 03/18/2024 9:47 PM EST Plan of Treatment Health Maintenance Due Date Last Done Comments BLOOD PRESSURE 1956 LIPID PANEL 1956 DEPRESSION SCREENING 1968 SMOKING Hx and SMOKELESS TOB ACCO SCREENING 1969 HEPATITIS C SCREENING 1974 PNEUMOCOCCAL VACCINES (50+ y ears) (1 of 2 - PCV) 12/05/1975 SCREENING FOR DIABETES 12/05/1991 MAMMOGRAM 1996 COLOGUARD 2001 COLONOSCOPY 2001 COLORECTAL CANCER SCREENING 2001 FIT TEST 2001 FOBT 2001 SIGMOIDOSCOPY 2001 VIRTUAL COLONOSCOPY 2001 ZOSTER VACCINES (1 of 2) 2006 RSV VACCINE (1 - Risk 60-74 years 1-dose series) 2016 OSTEOPOROSIS SCREENING INITI AL (ONE-TIME) 2021 COVID-19 VACCINE (1 - 2023-2 5 season) 2023 Adult Td,Tdap Booster 05/31/2024 05/31/2014 CREATININE LEVEL 10/22/2024 10/23/2023 POTASSIUM LEVEL 10/22/2024 10/23/2023 INFLUENZA VACCINE (#1) 2024 HEPATITIS A VACCINES Aged Out No long er eligible based on patient's age to complete this topic HIB VACCINES Aged Out No longer eligi ble based on patient's age to complete this topic MENINGOCOCCAL VACCINES (ACWY) Aged Out No longer eligible based on patient's age to complete this topic MENINGOCOCCAL VACCINES (B) Aged Out N o longer eligible based on patient's age to complete this topic Medical Devices Not on file Procedures Procedure Name Priority Date/Time Associated Diagnosis Comments BASIC METABOLIC PANEL STAT 10/23/2023 6:22 PM EDT from Last 3 Months or Most Recently Relevant to Health Maintenance Results * (ABNORMAL) Basic metabolic panel (10/23/2023 6:22 PM EDT) SODIUM 141 133 - 146 mmol/L [facility] CHLORIDE 102 96 - 108 mmol/L [facility] POTASSIUM 4.9 3.3 - 5.1 mmol/L [facility] CO2 24 21 - 35 mmol/L [facility] BUN 36(H) 6 - 19 mg/dL [facility] CREATININE 0.80 0.5 - 1.5 mg/dL [facility] GLUCOSE 204(H) 70 - 99 mg/dL [facility] CALCIUM 9.7 8.4 - 10.3 mg/dL [facility] EGFR 81 >59 mL/min/1.7 3m2 [facility] Comment:Estimated glomerular filtration rate calculated using the CKD-EPI refit equation. ANION GAP 20 10 - 20 mmol/L [facility] Blood 10/23/2023 6:22 PM EDT 10/23/2023 6:24 PM EDT Luke Quinones PA-C LAB BLOOD ORDERABLES Final Res ult [facility] [address] [place] [address] from Last 3 Months or Most Recently Relevant to Health Maintenance Insurance MEDICARE PART A & B [place] BLUE REPLACEMENT [facility] MEDICARE PART A & B [facility] MEDICARE HMO BLUE REPLACEMENT [facility] MEDICARE PART A & B [facility] MEDICARE HMO BLUE REPLACEMENT [address] [place], [place] [id number] MEDICARE PART A & B [place] BL[place] REPLACEMENT [facility] MEDICARE PART A & [place] BL[place] REPLACEMENT [facility] MEDICARE PART A & [place] BL[place] REPLACEMENT [facility] Care Teams Camp Coordinator Relationship Specialty Start Date End Date Pcp, Unknown PCP - General 03/18/24 Additional Source Comments The information contained in this document represents components of the legal health record. It is not the complete legal health record.[facility]
== END 2024-12-31 15:16 | disposition home or self-care (01) ==
LOC: HO.HMCH 14:02
DX: E11.9 Type 2 diabetes mellitus without complications (principal)

== ENCOUNTER → 2024-12-31 14:02 | Outpatient (REF) | payer BC, SELFPAY ==
--- NOTE | 2024-12-31 15:42 | ECG_ITS ---
Test Reason : tachycardia Blood Pressure : */* mmHG Vent. Rate : 105 BPM Atrial Rate : 105 BPM P-R Int : 132 ms QRS Dur : 76 ms QT Int : 314 ms P-R-T Axes : 41 56 37 degrees QTcB Int : 415 ms Sinus tachycardia Otherwise normal ECG When compared with ECG of 05-Oct-2020 23:55, No significant change was found Referred By: Pascale Murray Electronically Signed By: Ilir Link
[2024-12-31 16:59] LABS: Cholesterol 190 mg/dL (<200); HDL Cholesterol 61 mg/dL (>40); Triglycerides 182 mg/dL (<150)
== END ==
LOC: HO.CARD 14:02
DX: I10 Essential (primary) hypertension (principal); R00.0 Tachycardia, unspecified; E78.00 Pure hypercholesterolemia, unspecified; E11.9 Type 2 diabetes mellitus without complications; G35 Multiple sclerosis; C44.91 Basal cell carcinoma of skin, unspecified; F80.81 Childhood onset fluency disorder; Z84.81 Family history of carrier of genetic disease
CPT/HCPCS: 36415; 80061; 83036; 93005; 96127

== ENCOUNTER → 2024-12-31 15:42 | Outpatient (BNV) | payer BC, SELFPAY | PROVIDERS: Visit Provider Internal Medicine Cardiovascular Disease | DX: R00.0 Tachycardia, unspecified (principal) | CPT/HCPCS: 93010 ==

== ENCOUNTER 2025-01-12 13:13 | Outpatient (REF) | payer BC, SELFPAY ==
--- NOTE | ~2025-01-12 | US_ITS ---
EXAMINATION: US LOWER EXTREMITY VENOUS (REFLUX EXAM), RIGHT LOWER EXTREMITY. CLINICAL INFORMATION: Varices. COMPARISON: None. TECHNIQUE: Color flow triplex imaging and compression Doppler was performed to evaluate both the deep and the superficial systems right lower extremity. To evaluate the superficial system, the examination was performed in the upright position. Color-flow Doppler ultrasound and compression ultrasound were utilized. In addition, maneuvers were utilized to demonstrate reflux. FINDINGS: 1. DEEP VENOUS ULTRASOUND OF THE RIGHT LOWER EXTREMITY: Common Femoral Vein: Compressible, normal respiratory variation and augmented flow. Femoral Vein: Compressible, normal color flow and augmentation. Popliteal Vein: Compressible, normal augmentation. Deep Reflux: There is no evidence of reflux in the deep system in either the common femoral vein, superficial femoral or the popliteal vein. There is no evidence of a Campo's cyst. 2. SUPERFICIAL ULTRASOUND WITH DOPPLER OF RIGHT LOWER EXTREMITY: GREAT SAPHENOUS VEIN: Saphenofemoral Junction: 0.6 cm; Reflux: 0 ms Proximal Thigh: 0.6 cm; Reflux: 0 ms Mid Thigh: 0.3 cm; Reflux: 0 ms Distal Thigh: 0.2 cm; Reflux: 1920 ms At Knee: 0.2 cm; Reflux: 2544 ms Proximal Calf: 0.2 cm; Reflux: 0 ms Mid Calf: 0.2 cm; Reflux: 0 ms Distal Calf: 0.2 cm; Reflux: 0 ms DUPLICATED MEDIAL GREAT SAPHENOUS VEIN: Diameter: None imaged Reflux: NA DUPLICATED LATERAL GREAT SAPHENOUS VEIN: Diameter: None imaged Reflux: NA SMALL SAPHENOUS VEIN: Saphenopopliteal Junction: 0.4 cm; Reflux: 0 ms Proximal: 0.2 cm; Reflux: 0 ms Distal: 0.2 cm; Reflux: 0 ms VEIN OF GIACOMINI: Size: [0.2 cm. Reflux: NA PERFORATORS: Location: Right saphenous vein mid and distal calf. Size: 0.2 cm. Reflux: NA VARICOSITIES: Location: None imaged. Size: NA Reflux: NA US/US venous duplex LE RT IMPRESSION: Right: Venous insufficiency, great saphenous vein above the knee and at the knee level. Perforators without reflux. Electronically signed by: Kadeem De MD 01/12/2025 02:27 PM EDT
--- OUTSIDE RECORDS SUMMARY | 2025-01-12 18:19 | XMS_ITS | Encounter Summary ---
Author Organization [facility] Address [address] [place] [address] Care Team Providers Care Office Services Manager Name Role Phone Acacia Carias MD Primary Care Provider [phone] Acacia Carias MD Primary Care Provider [phone] Acacia Carias MD Unavailable Encounter Details Date Type Department Care Team Description 10/24/2018 Pt. Non Urgent Medic al Question Adult Medicine [address] [id number] José Luis Mitchell NP Social History Tobacco [...] encounter Miscellaneous Notes * Telephone Encounter - Poly Christy C.M.A. - 10/24/2018 1:43 PM EDTFrom: Brandy Wise To: José Luis Mitchell NP Sent: 10/24/2018 12:34 PM EDT Subject: Recent letter to me I have several health issues which need attention. I can only afford to go to a certain number of appointments each month due to cost. Unfortunately right now a visit with the software development coordinator will haveto wait several months. I am not ignoring or not wanting to follow the advice given. It is purely a matter of economics. Respectfully, Brandy Wise documented in this encounter Plan of Treatment Not on file documented as of this encounter Visit Diagnoses Not on filedocumented in this encounter Care Teams Office Services Manager Relationship Specialty Start Date End Date Acacia Carias MD [address] [place] [id number] PCP - General Internal Medicine 09/13/15 04/02/20 Acacia Carias MD [address] [place] [id number] PCP - General 04/03/20 Acacia Carias MD [address] [place] [phone] Internal Medicine 04/03/20 documented as of this encounter
--- OUTSIDE RECORDS SUMMARY | 2025-01-12 18:19 | XMS_ITS | Encounter Summary ---
Author Organization [facility] Address [address] [place] [address] Care Team Providers Care Teacher Vocational Training Name Role Phone Acacia Carias MD Primary Care Provider [phone] Acacia Carias MD Primary Care Provider [phone] Acacia Carias MD Unavailable Encounter Details Date Type Department Care Team Description 08/17/2016 Walking Dragline Operator Report Medical Records [address] [place] [address] 63076 Vanessa Sanon MD Social History Tobacco Use [...] on filedocumented in this encounter Care Teams Teacher Vocational Training Relationship Specialty Start Date End Date Acacia Carias MD [address] [place] [address] 65013 PCP - General Internal Medicine 09/13/15 04/02/20 Acacia Carias MD [address] [place] [address] 06392 PCP - General 04/03/20 Acacia Carias MD [address] [place], [place] [phone] Internal Medicine 04/03/20 documented as of this encounter
--- OUTSIDE RECORDS SUMMARY | 2025-01-12 18:19 | XMS_ITS | Encounter Summary ---
Author Organization [facility] Address [address] [place] [address] Care Team Providers Care Cinder Snapper Name Role Phone Acacia Carias MD Primary Care Provider [phone] Acacia Carias MD Primary Care Provider [phone] Acacia Carias MD Unavailable Reason for Visit * Reason Onset Date Comments Breathing Problems 09/01/2019 Prior Authorization 09/01/2019 Encounter Details Date Type Department Care Team Description 09/01/2019 Telephone Adult Medicine [address] [phone] Acacia Carias MD [address] [place] [address] [phone] Breathing Problems; Prior Authorization Social History Tobacco Use Types Packs/Day Years [...] encounter Miscellaneous Notes * Telephone Encounter - Jermaine Watson MD - 09/02/2019 1:53 PM EDT faxed * Telephone Encounter - Kim Llamas M.A. - 09/02/2019 1:37 PM EDT Please review for Care Team out of the office today, thank you. * Telephone Encounter - Marisabel Ware - 09/02/2019 1:33 PM EDT Patient is calling needs this SANDRINE. Juni De La Torre is not here today, as well as PCP. Please have covering Provider send script today. * Telephone Encounter - Ada Scott M.A. - 09/01/2019 4:45 PM EDT Dx code:Asthma J45.909 Past Rx tried and failed: Medication:symbicort 80-4.5mg 06/03/2019-08/31/2020 Other pertinent information:completed over the phone. Approved until 08/31/2020 Telephone Information: Work Phone Not on file. Patient notified of the approval. She states she needs a 90 day supply [facility] Pending for your signature. Thank you [place] [phone] prior authorization pool Jeannie Scott C.M.A. [facility] Prior Authorizations Ext: [id number] * Telephone Encounter - Monica Bruno - 09/01/2019 4:24 PM EDT Parker from [facility] calling for some more information on this prior auth. Call back number [phone] * Telephone Encounter - Ada Scott M.A. - 09/01/2019 4:08 PM EDT Generic airduo is covered in place of advair Thank you [place] [phone] prior authorization pool Jeannie Scott C.M.A. [facility] Prior Authorizations Ext: [id number] * Telephone Encounter - Elissa Garrett R.N. - 09/01/2019 3:59 PM EDT Pt states she is unable to come in because she is blind and cannot get to [place], she does not want to see any one or be seen she ants he inhaler because she is sure this will solve her breathing problems, explained to pt that I cannot advise her to stay home if she is gasping for air and getting worse I did call pt services and won will call PA to see if this will be done soon I advise pt to go to the ed if she is SOB and worsening symptoms * Telephone Encounter - Angy Guaman - 09/01/2019 3:34 PM EDT Patient asking for a call back from Elissa regarding need for office appt * Telephone Encounter - Elissa Garrett R.N. - 09/01/2019 3:25 PM EDT Pt states he needs her meds now, she states she is fatigued , dizzy, SOB ( gasping ) and needs her inhaler now, cannot wait for PA. Pt is NOT concerned about covid 19 virus. Pt has not traveled and has not had any contacts who havetraveled . Pt has not had contact with known or presumed covid 19 pt. Pt has not visited er or any urgent care and has not been tested C/O chest wall pain with deep breath and cough, she states she is gasping for breath , feels SOB (has asthma or any respiratory condition ) , able to speak in full sentences and has no audible wheezing, Has no cough, denies fever (has not taken temp ) able to take PO with no difficulty, denies N/V/D, No abd pain, no blood in stools Advised home care following the Cough/ breathing problems Protocol.but states she will not need theinterventions she just needs her inhaler RN reinforced telephone consultation and advice. Reviewed with the patient the signs and symptoms to watch for that would require immediate attention. If symptoms change, worsen or increase in intensity, to call back immediately. Appointment offered and she refused she states she needs her inhaler now, I explained we have to send to PA and this process make take 7 days , I advised her to be seen if she is gasping for air dizzy and SOB , she again refused and appointment And states she will suffer she ended the call * Telephone Encounter - Jermaine Watson MD - 09/01/2019 3:08 PM EDT Forwarded to PA department regarding the prescription. Also: if she is having trouble breathing, please evaluate if visit necessary, audio vs Lloyd, etc - thanks * Telephone Encounter - Keturah Ralph - 09/01/2019 2:59 PM EDT Pt calling please call / clinical pharmacy [phone] and fax [phone] pt will need 3month supply [facility] Pt is out of medication * Telephone Encounter - Kylah Khan M.A. - 09/01/2019 2:43 PM EDT CHERY 06/03/2019 F/U appt 12/01/2019 Please see msg below, PA or alternative? * Telephone Encounter - Marisabel Ware - 09/01/2019 2:10 PM EDT Who is calling? The patient Name of the medication fluticasone-salmeterol (ADVAIR DISKUS) 500-50 MCG/DOSE diskus inhaler What is the specific problem or interaction? Patient was told she needed Prior Auth for this medication. Patient is out of medication, and is having trouble breathing. Please advise. If the patient is having a problem with taking the med - how long has the problem been going on? 3 weeks documented in this encounter Plan of Treatment Not on file documented as of this encounter Visit Diagnoses Not on filedocumented in this encounter Care Teams Cinder Snapper Relationship Specialty Start Date End Date Acacia Carias MD [address] [place] [address] 60267 PCP - General Internal Medicine 09/13/15 04/02/20 Acacia Carias MD [address] [place] [address] 85110 PCP - General 04/03/20 Acacia Carias MD [address] [place] [address] 74952 Internal Medicine 04/03/20 documented as of this encounter
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
--- OUTSIDE RECORDS SUMMARY | 2025-01-12 18:19 | XMS_ITS | Encounter Summary ---
Author Organization [facility] Address [address] [place] [address] Care Team Providers Care Examination Scorer Name Role Phone Acacia Carias MD Primary Care Provider [phone] Acacia Carias MD Primary Care Provider [phone] Acacia Carias MD Unavailable Encounter Details Date Type Department Care Team Description 10/27/2016 Hospital Medical Records [address] [place] [address] 31144 Abstract, Provider Social History Tobacco Use Types [...] on filedocumented in this encounter Care Teams Examination Scorer Relationship Specialty Start Date End Date Acacia Carias MD [address] [place] [address] [phone] PCP - General Internal Medicine 09/13/15 04/02/20 Acacia Carias MD [address] [place] [address] 01020 PCP - General 04/03/20 Acacia Carias MD [address] [place] [address] 01020 Internal Medicine 04/03/20 documented as of this encounter
--- OUTSIDE RECORDS SUMMARY | 2025-01-12 18:19 | XMS_ITS | Encounter Summary ---
Author Organization [facility] Address [address] [place] [address] Care Team Providers Care Mechanical Planner Name Role Phone Acacia Carias MD Primary Care Provider [phone] Acacia Carias MD Primary Care Provider [phone] Acacia Carias MD Unavailable Reason for Visit * Reason Onset Date Comments Appointment-Internal Referral 06/23/2019 En docrinology Encounter Details Date Type Department Care Team Description 06/23/2019 Telephone Adult Medicine [facility] [address] [place] [address] [phone] [facility] [address] [place] [address] [phone] Appointment-Internal Referral (Endocrinology) Social History Tobacco Use [...] on filedocumented in this encounter Care Teams Mechanical Planner Relationship Specialty Start Date End Date Acacia Carias MD [address] [place] [address] 48045 PCP - General Internal Medicine 09/13/15 04/02/20 Acacia Carias MD [address] [place] [address] 26415 PCP - General 04/03/20 Acacia Carias MD [address] [place] [address] 63112 Internal Medicine 04/03/20 documented as of this encounter
--- OUTSIDE RECORDS SUMMARY | 2025-01-12 18:19 | XMS_ITS | Encounter Summary ---
Author Organization [facility] Address [address] [place] [address] Care Team Providers Care Digital Associate Name Role Phone Acacia Carias MD Primary Care Provider [phone] Acacia Carias MD Unavailable Encounter Details Date Type Department Care Team Description 07/06/2020 Regroover Report Medical Records [address] [place] [address] 87547 Vanessa Sanon MD Social History Tobacco Use [...] on filedocumented in this encounter Care Teams Digital Associate Relationship Specialty Start Date End Date Acacia Carias MD [address] [place] [address] 01020 PCP - General 04/03/20 Acacia Carias MD [address] [place] [address] 01020 Internal Medicine 04/03/20 documented as of this encounter
--- OUTSIDE RECORDS SUMMARY | 2025-01-12 18:19 | XMS_ITS | Clinical Summary ---
Author Organization [facility] Address [address] [facility] [address] [place] [address]22 Phone Care Team Providers Care Shuttlecock Assembler Name Role Phone Pcp, Unknown Primary Care [...] EDT) SODIUM 141 133 - 146 mmol/L [facility] CHLORIDE 102 96 - 108 mmol/L [facility] POTASSIUM 4.9 3.3 - 5.1 mmol/L [facility] CO2 24 21 - 35 mmol/L [facility] BUN 36(H) 6 - 19 mg/dL [facility] CREATININE 0.80 0.5 - 1.5 mg/dL [facility] GLUCOSE 204(H) 70 - 99 mg/dL [facility] CALCIUM 9.7 8.4 - 10.3 mg/dL [facility] EGFR 81 >59 mL/min/1.7 3m2 [facility] Comment:Estimated glomerular filtration rate calculated using the CKD-EPI refit equation. ANION GAP 20 10 - 20 mmol/L [facility] Blood 10/23/2023 6:22 PM EDT 10/23/2023 6:24 PM EDT Luke Quinones PA-C LAB BLOOD ORDERABLES Final Res ult [facility] [address] [place] [address] from Last 3 Months or Most Recently Relevant to Health Maintenance Insurance MEDICARE PART A & B [place] MED[place] H[place] BLUE REPLACEMENT [facility] MEDICARE PART A & B [facility] MEDICARE HMO BLUE REPLACEMENT [facility] MEDICARE PART A & B [facility] MEDICARE HMO BLUE REPLACEMENT [address] [place], [place] [id number] MEDICARE PART A & B [place] BLUE REPLAC[place] [facility] [place] BL[place] RE[place]ACEMENT [facility] MEDICARE PART A & B [place] BLUE REPLACEMENT [facility] Care Teams Shuttlecock Assembler Relationship Specialty Start Date End Date Pcp, Unknown PCP - General 03/18/24 Additional Source Comments The information contained in this document represents components of the legal health record. It is not the complete legal health record.[facility]
--- OUTSIDE RECORDS SUMMARY | 2025-01-12 18:19 | XMS_ITS | Encounter Summary ---
Author Organization [facility] Address [address] [place] [address] Care Team Providers Care Television News Producer Name Role Phone Acacia Carias MD Primary Care Provider [phone] Acacia Carias MD Primary Care Provider [phone] Acacia Carias MD Unavailable Encounter Details Date Type Department Care Team Description 06/26/2016 Changeover Operator Report Medical Records [address] [place] [address] 38137 Sagar Sandoval MD [address] [place] [address] 92671 Social History Tobacco Use Types Packs/Day Years [...] on filedocumented in this encounter Care Teams Television News Producer Relationship Specialty Start Date End Date Acacia Carias MD [address] [place] [address] 76579 PCP - General Internal Medicine 09/13/15 04/02/20 Acacia Carias MD [address] [place] [address] [phone] PCP - General 04/03/20 Acacia Carias MD [address] [place] [address] [phone] Internal Medicine 04/03/20 documented as of this encounter
--- OUTSIDE RECORDS SUMMARY | 2025-01-12 18:19 | XMS_ITS | Encounter Summary ---
Author Organization [facility] Address [address] [place] [address] Care Team Providers Care Unit Assistant Name Role Phone Acacia Carias MD Primary Care Provider [phone] Acacia Carias MD Primary Care Provider [phone] Acacia Carias MD Unavailable Encounter Details Date Type Department Care Team Description 04/05/2017 Release of Information Medical Records [address] [place] [address] 07801 Abstract, Provider Social History Tobacco Use Types [...] on filedocumented in this encounter Care Teams Unit Assistant Relationship Specialty Start Date End Date Acacia Carias MD [address] [place] [address] [phone] PCP - General Internal Medicine 09/13/15 04/02/20 Acacia Carias MD [address] [place] [address] [phone] PCP - General 04/03/20 Acacia Carias MD [address] [place] [address] [phone] Internal Medicine 04/03/20 documented as of this encounter
--- OUTSIDE RECORDS SUMMARY | 2025-01-12 18:19 | XMS_ITS | Encounter Summary ---
Author Organization [facility] Address [address] [place] [address] Care Team Providers Care Registered Nurse Hh Case Manager Name Role Phone Acacia Carias MD Primary Care Provider [phone] Acacia Carias MD Primary Care Provider [phone] Acacia Carias MD Unavailable Encounter Details Date Type Department Care Team Description 10/12/2016 Toll Gate Keeper Report Medical Records [address] [place] [address] 52576 Vanessa Sanon MD Social History Tobacco Use [...] on filedocumented in this encounter Care Teams Registered Nurse Hh Case Manager Relationship Specialty Start Date End Date Acacia Carias MD [address] [place] [address] 78716 PCP - General Internal Medicine 09/13/15 04/02/20 Acacia Carias MD [address] [place] [address] 12538 PCP - General 04/03/20 Acacia Carias MD [address] [place], [place] [phone] Internal Medicine 04/03/20 documented as of this encounter
--- OUTSIDE RECORDS SUMMARY | 2025-01-12 18:19 | XMS_ITS | Encounter Summary ---
Author Organization [facility] Address [address] [place] [address] Care Team Providers Care Worship Director Name Role Phone Acacia Carias MD Primary Care Provider [phone] Acacia Carias MD Primary Care Provider [phone] Acacia Carias MD Unavailable Encounter Details Date Type Department Care Team Description 02/23/2016 Release of Information Medical Records [address] [place] [address] 53247 Abstract, Provider Social History Tobacco Use Types [...] on filedocumented in this encounter Care Teams Worship Director Relationship Specialty Start Date End Date Acacia Carias MD [address] [place] [address] [phone] PCP - General Internal Medicine 09/13/15 04/02/20 Acacia Carias MD [address] [place] [address] [phone] PCP - General 04/03/20 Acacia Carias MD [address] [place] [address] [phone] Internal Medicine 04/03/20 documented as of this encounter
--- OUTSIDE RECORDS SUMMARY | 2025-01-12 18:19 | XMS_ITS | Encounter Summary ---
Author Organization [facility] Address [address] [place] [address] Care Team Providers Care Php Website Developer Name Role Phone Acacia Carias MD Primary Care Provider [phone] Acacia Carias MD Primary Care Provider [phone] Acacia Carias MD Unavailable Reason for Visit * Reason Onset Date Comments REFERRAL 12/14/2017 Encounter Details Date Type Department Care Team Description 12/14/2017 Telephone Radiology - [address] [phone] Lincoln Medrano MD REFERRAL Social History Tobacco [...] to Dr. Medrano her call back number [phone] * Telephone Encounter - Lincoln Medrano MD - 01/08/2018 7:00 PM EDT I called the patient today and left a message on the machine. Patient instructed to return my call.Re: Thyroid Ultrasound * Telephone Encounter - Lincoln Medrano MD - 01/08/2018 6:59 PM EDT ----- Message from Young Judge MD sent at 01/04/2018 5:56 PM EDT ----- Okay to wait. * Telephone Encounter - Lory Talbert - 12/14/2017 4:05 PM EDT An order for thyroid u/s was ordered back in 2016 for pt to have done in Apr 2017, pt was scheduled for September but cancelled and [facility] the order has . Please place [...] multinodular goiter. Comparison with previous study from [facility] 05/24/2016. Right thyroid lobe measures [...] consideredfor ultrasound-guided biopsy. Lincoln Medrano MD ULTRASOUND [place] OTHER EXTERNAL documented in this encounter Visit Diagnoses Diagnosis Multinodular goiter- Primary Nontoxic multinodular goiter Multinodular goiter Nontoxic multinodular goiter documented in this encounter Care Teams Php Website Developer Relationship Specialty Start Date End Date Acacia Carias MD [address] [place] [address] 30076 PCP - General Internal Medicine 09/13/15 04/02/20 Acacia Carias MD [address] [place] [address] 51403 PCP - General 04/03/20 Acacia Carias MD [address] [place] [address] 14093 Internal Medicine 04/03/20 documented as of this encounter
--- OUTSIDE RECORDS SUMMARY | 2025-01-12 18:19 | XMS_ITS | Encounter Summary ---
Author Organization [facility] Address [address] [place] [address] Care Team Providers Care Primer Waterproofing Machine Adjuster Name Role Phone Acacia Carias MD Primary Care Provider [phone] Acacia Carias MD Primary Care Provider [phone] Acacia Carias MD Unavailable Encounter Details Date Type Department Care Team Description 06/25/2017 Orders Only Radiology - [address] [phone] Acacia Carias MD [address] [place] [address] [phone] Social History Tobacco Use Types Packs/Day Years [...] on filedocumented in this encounter Care Teams Primer Waterproofing Machine Adjuster Relationship Specialty Start Date End Date Acacia Carias MD [address] [place] [address] 01020 PCP - General Internal Medicine 09/13/15 04/02/20 Acacia Carias MD [address] [place] [address] 23529 PCP - General 04/03/20 Acacia Carias MD [address] [place] [address] 28165 Internal Medicine 04/03/20 documented as of this encounter
--- OUTSIDE RECORDS SUMMARY | 2025-01-12 18:19 | XMS_ITS | Encounter Summary ---
Author Organization [facility] Address [address] [place] [address] Care Team Providers Care Veterinary X Ray Operator Name Role Phone Acacia Carias MD Primary Care Provider [phone] Acacia Carias MD Primary Care Provider [phone] Acacia Carias MD Unavailable Reason for Visit * Reason Onset Date Comments Pre-op Needed 07/11/2017 Encounter Details Date Type Department Care Team Description 07/11/2017 Telephone Adult [address] [phone] Acacia Carias MD [address] [place] [address] [phone] Pre-op Needed Social History Tobacco Use Types Packs/Day Years [...] encounter Miscellaneous Notes * Telephone Encounter - Miladys Favian - 07/11/2017 1:46 PM EDT Patient has an appointment schedule for Pre-op with Dr. Carias on 07/23/17. Patient would like to know if appointment can be moved to after 07/31/17. documented in this encounter Plan of Treatment Not on file documented as of this encounter Visit Diagnoses Not on filedocumented in this encounter Care Teams Veterinary X Ray Operator Relationship Specialty Start Date End Date Acacia Carias MD [address] [place] [address] 57212 PCP - General Internal Medicine 09/13/15 04/02/20 Acacia Carias MD [address] [place] [address] 52048 PCP - General 04/03/20 Acacia Carias MD [address] [place] [address] 26572 Internal Medicine 04/03/20 documented as of this encounter
--- OUTSIDE RECORDS SUMMARY | 2025-01-12 18:19 | XMS_ITS | Encounter Summary ---
Author Organization [facility] Address [address] [place] [address] Care Team Providers Care Patient Financial Representative Name Role Phone Acacia Carias MD Primary Care Provider [phone] Acacia Carias MD Primary Care Provider [phone] Acacia Carias MD Unavailable Reason for Visit * Reason Onset Date Comments TEST RESULTS 11/08/2017 Encounter Details Date Type Department Care Team Description 11/08/2017 Pt. Non Urgent Medical Question Adult Medicine [address] [phone] Alessandra De La Torre, [facility] [address] [place] [address] [phone] Social History Tobacco Use Types Packs/Day Years [...] on file documented as of this encounter Progress Notes * Jannet Yang M.A. - 11/08/2017 9:31 AM EDTFrom: Brandy Wise To: TIBURCIO Edward Sent: 11/08/2017 9:16 AM EDT Subject: Questions regarding ultrasound Do I need to worry about the gall stone found? Is the cyst on my liver any bigger and is there change for the worse in either the liver function or gall bladder function. Should this be followed up with blood work? Am I going to need my gall bladder out? Thank you. documented in this encounter Plan of Treatment Not on file documented as of this encounter Visit Diagnoses Not on filedocumented in this encounter Care Teams Patient Financial Representative Relationship Specialty Start Date End Date Acacia Carias MD [address] [place] [address] [phone] PCP - General Internal Medicine 09/13/15 04/02/20 Acacia Carias MD [address] [place] [address] [phone] PCP - General 04/03/20 Acacia Carias MD [address] [place] [address] 68192 Internal Medicine 04/03/20 documented as of this encounter
--- OUTSIDE RECORDS SUMMARY | 2025-01-12 18:19 | XMS_ITS | Encounter Summary ---
Author Organization [facility] Address [address] [place] [address] Care Team Providers Care Technical System Analyst Name Role Phone Acacia Carias MD Primary Care Provider [phone] Acacia Carias MD Primary Care Provider [phone] Acacia Carias MD Unavailable Reason for Visit * Reason Onset Date Comments foot complaints 08/22/2017 Encounter Details Date Type Department Care Team Description 08/22/2017 Telephone Podiatry - [address] [phone] Monica Merchant DPM foot complaints Social History Tobacco Use Types Packs/Day Years [...] encounter Miscellaneous Notes * Telephone Encounter - Odalis Schofield Rn - 08/22/2017 2:[address] Carias please see Dr Merchant's message below * Telephone Encounter - Odalis Schofield Rn - 08/22/2017 2:23 PM EDT Call to pt. Pt states it is the same thing again, No fever, flushing, chills, Heart rate is up Pt states she has a bp cuff, This am pulse was 124, this was before her bp meds, 110/70's, and elevated heart rate, Woke this About, 5:30-6am with sweats ,chills, not feeling well. This has been on going for two weeks, She is on metformin to off set some of her other meds, She is not diabetic, She continues to have chills and sweats, bp lower after taking bp, meds, pulse rate down to 101 It was recommended see pcp. Reviewed with Alissa De La Torre, pt not having any cardiac symptoms, not passing out, She can be seen with her pcp. appt booked with pcp, pt agreed, to call 911 if any symptoms, chest pain, sob, passing out, n/v, * Telephone Encounter - Monica Merchant DPM - 08/22/2017 1:35 PM EDT This is not an infection. This is the second time in one week they told the patient this. This is amedical issue. She has a low blood pressure which I do not treat, It should be evaluated by her PCPcare team. She was just seen in my office with the surgical site looking completely normal. I do not feel this should have been just triaged to the emergency room. * Telephone Encounter - Dariela Romero C.M.A. - 08/22/2017 1:08 PM EDT Please see message below and advise, thank you. * Telephone Encounter - Zulma Malloy - 08/22/2017 12:37 PM EDT Patient had a surgery appointment with Dr Merchant on 08/09 and is calling today because she is experiencing the following symptoms: low BP, heart rate of 124, no fever, episodes of hot flashes and chills. Patient stated that she called her PCP and they are referring her to the ER and stated that because of her symptoms she could be experiencing a systemic infection and the patient would like to kn ow if Dr Merchant can order blood work. Please call and advise. documented in this encounter Plan of Treatment Not on file documented as of this encounter Visit Diagnoses Not on filedocumented in this encounter Care Teams Technical System Analyst Relationship Specialty Start Date End Date Acacia Carias MD [address] [place] [phone] PCP - General Internal Medicine 09/13/15 04/02/20 Acacia Carias MD [address] [place] [address] [phone] PCP - General 04/03/20 Acacia Carias MD [address] [place] [address] [phone] Internal Medicine 04/03/20 documented as of this encounter
--- OUTSIDE RECORDS SUMMARY | 2025-01-12 18:19 | XMS_ITS | Encounter Summary ---
Author Organization [facility] Address [address] [place] [address] Care Team Providers Care Diesel Power Mechanic Name Role Phone Acacia Carias MD Primary Care Provider [phone] Acacia Carias MD Primary Care Provider [phone] Acacia Carias MD Unavailable Encounter Details Date Type Department Care Team Description 10/21/2018 Transmission Line Engineer Report Medical Records [address] [place] [address] Vanessa Sanon MD Social History Tobacco Use [...] on filedocumented in this encounter Care Teams Diesel Power Mechanic Relationship Specialty Start Date End Date Acacia Carias MD [address] [place] [phone] PCP - General Internal Medicine 09/13/15 04/02/20 Acacia Carias MD [address] [place] [address] [phone] PCP - General 04/03/20 Acacia Carias MD [address] [place] [address] [phone] Internal Medicine 04/03/20 documented as of this encounter
--- OUTSIDE RECORDS SUMMARY | 2025-01-12 18:19 | XMS_ITS | Clinical Summary ---
Author Organization [facility] Address [address] [place] [address] Care Team Providers Care Fiction And Nonfiction Prose Writer Name Role Phone Acacia Carias MD Primary Care Provider [phone] Acacia Carias MD Unavailable Allergies Active Allergy Reactions Severity Noted Date Comments Celecoxib Rash/Dermatitis 09/13/2015 Fluvoxamine Maleate OTHER 09/13/2015 Grand Mal seizure Acetaminophen 10/27/2015 Zoloft Anaphylaxis 09/13/2015 Medications Medication Sig Dispensed Refills Start Date End Date Status vitamin B-12 (CYANOCOBALAMIN) 1000 MCG tablet Take 1,000 mcg by mouth daily. 0 Active Cholecalciferol (VITAMIN D3) 2000 UNITS Cap Take 1 capsule by mouth daily. 0 Active Winthrop-3 Fatty Acids (FISH OIL OMEGA-3) 1000 MG CapIndications:Predi abetes,Rib pain on left side,Essential hypertension,Anxiety and depression Take by mouth. 0 Active tranylcypromine (PARNATE) 10 MG tablet Take 1 Tab by mouth 4 times daily. 0 10/12/2017 Active ibuprofen (ADVIL,MOTRIN) 600 MG tabletIndications:Po stcalcaneal bursitis of right foot,Achilles tendinitis of right lower extremity TAKE 1 TABLET THREE TIMES A DAY 270 Tab 4 01/01/2019 Active montelukast (SINGULAIR) 10 MG tablet Take 1 Tab by mouth at bedtime. 90 Tab 1 06/03/2019 Active Chromium-Cinnamon 200-1000 MCG-MG Cap Take 1 Cap by mouth daily. [address] Hernadez Wort 150 MG Cap Take 1 Cap by mouth daily. 0 Active niacin 500 MG tablet Take 500 mg by mouth daily (with breakfast). 0 Active Coenzyme Q10 (CO Q 10) 100 MG Cap Take 1 Cap by mouth daily. 0 Active metformin (GLUCOPHAGE-XR) 500 MG 24 hr tabletIndications:Es sential hypertension,Prediab etes,Obesity, unspecified obesity severity, unspecified obesity type 1 daily 90 Tab 3 06/03/2019 Active estradiol (ESTRACE VAGINAL) 0.1 MG/GM vaginal cream Place 2 g vaginally twice a week for 360 days. 1 Tube 6 09/01/2019 Active nystatin (MYCOSTATIN) powder Apply to affected area daily as needed for rash 15 g 0 09/01/2019 Active fluticasone-salmeter ol (ADVAIR DISKUS) 500-50 MCG/DOSE diskus inhaler Inhale 1 Puff into the lungs every 12 hours. 3 Inhaler 1 09/02/2019 Active metoprolol (TOPROL-XL) 25 MG 24 hr tablet Take 1 Tab by mouth daily. 90 Tab 1 02/17/2020 Active hydrochlorothiazide (MICROZIDE) 12.5 MG capsule TAKE 1 CAPSULE EVERY MORNING 90 capsule 0 08/26/2020 Active Active Problems Problem Noted Date Reactive airway disease 06/03/2019 Atypical squamous cell burns es of undetermined significance (ASCUS) on cervical cytology with positive high risk human papilloma virus (HPV) 10/14/2018 Overview: 10/08/2018 Papsmear ASCUS HRHPV 10/22/2018 Colposcopy wnl w ECC neg for dysplasia Abnormal echocardiogram 09/24/2018 Ex-smoker 09/18/2018 Family history of breast cancer 01/29/20 18 Abnormal US (ultrasound) of abdomen 04/30 Chest pain 11/06/2016 Overview: Nuclear stress test (-) 2017 Obesity 10/02/2016 Multinodular goiter 06/30/2016 Basal cell carcinoma of nose 05/26/2016 Limited peripheral vision 04/18/2016 FH: CVA (cerebrovascular accident)- moth er in her 40's 04/18/2016 Tibialis posterior tendinitis 02/26/2016 Overview: Sees ortho Post-surgical hypothyroidism 10/26/2015 Overview: Asthma 10/26/2015 History of basal cell cancer 10/26/2015 Overview: Nose H/O alopecia areata 10/26/2015 Vitamin B 12 deficiency 10/26/2015 Anxiety and depression 10/26/2015 Overview: Admit [facility] 07/2014. Received unilateral ECT Migraine headache 10/26/2015 DDD (degenerative disc disease), lumbosa cral 10/26/2015 Diverticulosis of colon 10/26/2015 Lactose intolerance 10/26/2015 Degenerative joint disease of foot, righ t 10/26/2015 Prediabetes 10/26/2015 Optic neuritis 10/26/2015 Achilles tendon tear 10/26/2015 Overview: Right. Wears brace PTSD (post-traumatic stress disorder) Nephrolithiasis 10/26/2015 IBS (irritable bowel syndrome) 6 Cataract of both eyes 10/26/2015 Essential hypertension 10/21/2015 Resolved Problems Problem Noted Date Resolved Date Abnormal CXR 09/18/2018 09/24/2018 Vitamin D deficiency 10/26/2015 05/14/2017 Immunizations Name Administration Dates Next Due Influenza (> 6 Months) 02/27/2015 Influenza Flu (PT Reported) 02/14/2017, 6 Tdap 05/31/2014 Family History Medical History Relation Name Comments Blindness Brother Leukemia Daughter 1 age 4 Scleroderma Daughter 2 CA Prostate Father ? bipolar CA Breast Maternal Grandmother dx'd ? Other Mother murdered age 50 . PE, CVA Stroke Mother 40's CA Breast Other m. cousin CA Breast Sister 1 Hypertension Sister 1 colon polyps Valve replacement Sister 2 Relation Name Status Comments Brother Daughter 1 Daughter 2 Father Maternal Grandmother dx'd ? Mother Other m. cousin Sister 1 Sister 2 Social History Tobacco Use Types Packs/Day Years Used Date Smoking Tobacco: Former Cigarettes 0.5 20 Q uit: 09/13/1995 Smokeless Tobacco: Never Tobacco Cessation:Counseling Given: Yes Alcohol Use Standard Drinks/Week Comments Yes 0 [...] Assigned at Date Recorded Not on file Last Filed Vital Signs Vital Sign Reading Time Taken Comments Blood Pressure 120/80 06/03/2019 2:47 PM EST Pulse 108 06/03/2019 11:23 AM EST Temperature 36.5 C (97.7 F) 06/03/2019 11:23 AM EST Respiratory Rate 22 06/03/2019 11:23 AM EST Oxygen Saturation 96% 08/02/2018 8:24 AM EDT Inhaled Oxygen Concentration - - Weight 85.4 kg (188 lb 3.2 oz) 06/03/2019 2:47 P M EST Height 161.3 cm (5' 3.5 ) 06/03/2019 2:47 PM EST Body Mass Index 32.82 06/03/2019 2:47 PM EST Plan of Treatment Health Maintenance Due Date Last Done Comments Covid-19 Vaccine (#1) 06/06/1956 DIABETES: ANNUAL URINE PROTE IN TEST (MICROALBUMIN) 1974 SHINGLES VACCINE (1 of 2) 2006 DIABETES: ANNUAL EYE EXAM 11/14/20182017, 01/13/2015, 08/05/2014, Additional history exists DIABETES: ANNUAL FOOT EXAM 11/14/2018 11/14/2017 (Co mpleted) COLON CANCER SCREENING 04/12/2019 04/12/2009 MAMMOGRAM 04/26/2019 04/26/2018, 05/01, 03/10/2015 (External Completion), Additional history exists CERVICAL CANCER SCREENING 10/09/20192018, 01/11/2015 (External Completion), 01/11/2015, Additional history exists DIABETES: BLOOD SUGAR CONTRO L TEST (HGBA1C) 01/16/2020 10/16/2019, 03/03/2019, 08/02/2018, Additional history exists DIABETES/HEART DISEASE: MANDA AL CHOLESTEROL (LDL) 10/15/2020 10/16/2019, 11/22/2017, 04/18/2016 BONE DENSITY SCREENING 2021 11/22/2017 PNEUMOCOCCAL VACCINE (2 - PCV) 2021 01/30/2018 , 06/10/2014 BMI CHECK/ADVISE 04/30/2024 06/03/2019, 07/2019, 10/08/2018, Additional history exists DTAP/TDAP/TD (2 - Td or Tdap) 05/31/2024 05/31/2014 INFLUENZA (#1) 2024 01/30/2018, 01/28, 03/05/2016, Additional history exists HEPATITIS C SCREENING Completed 10/08/2018 , 04/18/2016, 10/27/2015 Care Teams Fiction And Nonfiction Prose Writer Relationship Specialty Start Date End Date Acacia Carias MD [address] [place] [address] [phone] PCP - General 04/03/20 Acacia Carias MD [address] [place] [address] [phone] Internal Medicine 04/03/20
--- OUTSIDE RECORDS SUMMARY | 2025-01-12 18:19 | XMS_ITS | Encounter Summary ---
Author Organization [facility] Address [address] [place] [address] Care Team Providers Care Crocheter Name Role Phone Acacia Carias MD Primary Care Provider [phone] Acacia Carias MD Primary Care Provider Acacia Carias MD Unavailable Encounter Details Date Type Department Care Team Description 08/09/2017 Hospital Medical Records [address] [place] [id number] Monica Merchant DPM Social History Tobacco Use [...] on filedocumented in this encounter Care Teams Crocheter Relationship Specialty Start Date End Date Acacia Carias MD [address] [place] [address] [phone] PCP - General Internal Medicine 09/13/15 04/02/20 Acacia Carias MD [address] [place] [address] [phone] PCP - General 04/03/20 Acacia Carias MD [address] [place], [place] [phone] Internal Medicine 04/03/20 documented as of this encounter
--- OUTSIDE RECORDS SUMMARY | 2025-01-12 18:19 | XMS_ITS | Encounter Summary ---
Author Organization [facility] Address [address] [place] [address] Care Team Providers Care Sciences Dean Name Role Phone Acacia Carias MD Primary Care Provider [phone] Acacia Carias MD Primary Care Provider [phone] Acacia Carias MD Unavailable Encounter Details Date Type Department Care Team Description 12/10/2019 Telephone Adult Medicine B - [address] [address] Lincoln Medrano MD Social History Tobacco Use [...] Telephone Encounter - Lincoln Medrano MD - 12/10/2019 12:17 PM EDT This patient did not come in for endocrine evaluation today documented in this encounter Plan of Treatment Not on file documented as of this encounter Visit Diagnoses Not on filedocumented in this encounter Care Teams Sciences Dean Relationship Specialty Start Date End Date Acacia Carias MD [address] [place] [address] [phone] PCP - General Internal Medicine 09/13/15 04/02/20 Acacia Carias MD [address] [place] [address] [phone] PCP - General 04/03/20 Acacia Carias MD [address] [place] [address] [phone] Internal Medicine 04/03/20 documented as of this encounter
--- OUTSIDE RECORDS SUMMARY | 2025-01-12 18:20 | XMS_ITS | Encounter Summary ---
Author Organization [facility] Address [address] [place] [address] Care Team Providers Care It Trainee Name Role Phone Acacia Carias MD Primary Care Provider [phone] Acacia Carias MD Primary Care Provider [phone] Acacia Carias MD Unavailable Encounter Details Date Type Department Care Team Description 07/21/2016 Refill Adult Medicine [address] [phone] Acacia Carias MD [address] [place] [address] [phone] Social History Tobacco Use Types Packs/Day Years [...] on filedocumented in this encounter Care Teams It Trainee Relationship Specialty Start Date End Date Acacia Carias MD [address] [place] [address] 62455 PCP - General Internal Medicine 09/13/15 04/02/20 Acacia Carias MD [address] [place] [address] [phone] PCP - General 04/03/20 Acacia Carias MD [address] [place] [address] [phone] Internal Medicine 04/03/20 documented as of this encounter
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
== END 2025-01-12 13:14 | disposition home or self-care (01) ==
LOC: HO.US 13:13
DX: I87.2 Venous insufficiency (chronic) (peripheral) (principal)
CPT/HCPCS: 93971

== ENCOUNTER → 2025-01-12 13:14 | Outpatient (BNV) | payer BC, SELFPAY | PROVIDERS: Visit Provider Radiology Diagnostic Radiology | DX: I87.2 Venous insufficiency (chronic) (peripheral) (principal) | CPT/HCPCS: 93971 ==

== ENCOUNTER 2025-02-02 12:56 | Outpatient (REF) | payer BC, SELFPAY ==
--- NOTE | 2025-02-02 | EEG_ITS ---
Roomed Performed:?402 Reason: encephalopathy History of MS, PTSD, depression, behavioral disorder, borderline personality disorder, optic neuritis and possible complex partial seizure disorder Medication: metformin, hydrochlorothiazide, tranylcypromine, losartan, Vit. C, Vit D3, aspirin 81, Melatonin Technical description Photic stimulation: completed Hyperventilation:?omitted Behavioral state: pt did not respond to verbal stimuli, pt did respond to physical stimuli State of Consciousness: awake Skull defect: none Sedation: none Handedness: unknown Duration of study:?30 min 48 sec Description: This is a 16 channel EEG with an EKG lead. Patient is reported awake during the tracing. Background EEG rhythm is about 10 hertz 5-20 microvolt posteriorly and lower amplitude fast anteriorly. Photic stimulation does not produce any significant driving. Hyperventilation is not performed. Cardiac lead does not reveal any significant abnormality. No sharp wave spikes or paroxysmal tendency noted. Impression: No significant abnormality noted on this EEG. MTDD
--- OUTSIDE RECORDS SUMMARY | 2025-02-02 15:20 | XMS_ITS | Clinical Summary ---
Author Organization [facility] Address [address] [facility] [address] [place] [address] Phone Care Team Providers Care Wire Rope Fabrication Supervisor Name Role Phone Pcp, Unknown Primary Care [...] 2016 OSTEOPOROSIS SCREENING INITI AL (ONE-TIME) 2021 Adult Td,Tdap Booster 05/31/2024 05/31/2014 CREATININE LEVEL 10/22/2024 10/23/2023 POTASSIUM LEVEL 10/22/2024 10/23/2023 INFLUENZA VACCINE (#1) 2024 COVID-19 VACCINE (1 - 2023-2 5 season) 2024 HEPATITIS A VACCINES Aged Out No [...] EDT) SODIUM 141 133 - 146 mmol/L [facility] CHLORIDE 102 96 - 108 mmol/L [facility] POTASSIUM 4.9 3.3 - 5.1 mmol/L [facility] CO2 24 21 - 35 mmol/L [facility] BUN 36(H) 6 - 19 mg/dL [facility] CREATININE 0.80 0.5 - 1.5 mg/dL [facility] GLUCOSE 204(H) 70 - 99 mg/dL [facility] CALCIUM 9.7 8.4 - 10.3 mg/dL [facility] EGFR 81 >59 mL/min/1.7 3m2 [facility] Comment:Estimated glomerular filtration rate calculated using the CKD-EPI refit equation. ANION GAP 20 10 - 20 mmol/L [facility] Blood 10/23/2023 6:22 PM EDT 10/23/2023 6:24 PM EDT Luke Quinones PA-C LAB BLOOD ORDERABLES Final Res ult [facility] [address] [place] [address] from Last 3 Months or Most Recently Relevant to Health Maintenance Insurance MEDICARE PART A & B [place] BLUE REPLACEMENT [facility] MEDICARE PART A & B [facility] MEDICARE HMO BLUE REPLACEMENT [facility] MEDICARE PART A & B [facility] MEDICARE HMO BLUE REPLACEMENT [address] [place], [place] [id number] MEDICARE PART A & B [place] BL[facility] [place] BL[place] RE[place] [facility] MEDICARE PART A & [place] BLUE REPLACEMENT [facility] Care Teams Wire Rope Fabrication Supervisor Relationship Specialty Start Date End Date Pcp, Unknown PCP - General 03/18/24 Additional Source Comments The information contained in this document represents components of the legal health record. It is not the complete legal health record.[facility]
== END 2025-02-02 12:57 | disposition home or self-care (01) ==
LOC: HO.NEURO 12:56
PROVIDERS: Visit Provider Psychiatry & Neurology Neurology
DX: Z13.89 Encounter for screening for other disorder (principal); G93.40 Encephalopathy, unspecified
CPT/HCPCS: 95816

== ENCOUNTER → 2025-02-02 12:56 | Outpatient (BNV) | payer BC, SELFPAY | PROVIDERS: Visit Provider Psychiatry & Neurology Neurology | DX: G93.40 Encephalopathy, unspecified (principal) | CPT/HCPCS: 95816 ==

== ENCOUNTER 2025-03-06 13:13 | Outpatient (AMB) | payer BC, SELFPAY ==
--- OUTSIDE RECORDS SUMMARY | 2025-03-03 10:00 | XMS_ITS | Encounter Summary ---
Author Organization [facility] Address [address] [place] [address] Phone Care Team Providers Care Charging Machine Operator Name Role Phone Pascale Murray Primary Care Provide r Reason for Visit * Auth/Cert (Routine) Specialty Diagnoses / Procedures Referred By Isabel oden Referred To Contact Referral ID Status Reason Start Date Expiration Date Visits Re quested Visits Authorized [id number] 1 1 Encounter Details Date Type Department Care Team (Late st Contact Info) Description 03/03/2025 10:00 AM EST Home Care Visit [facility] [address] [place] [phone] Elaine Marquez, OT [address] [place] [address] [email or web address] OT EVALUATION Social History Tobacco Use Types Packs/Day Years Used Date Smoking Tobacco: Former Smokeless Tobacco: Never Alcohol Use Standard Drinks/Week Comments Not Currently 0 (1 standard drink = 0.6 oz pur e alcohol) Home Health Assessment: Transportation Answer Date Recorded Lack of Transportation (Medical) Yes 02/16/2025 Lack of Transportation (Non-Medical) No 02/16/2025 Patient Unable or Declines to Respond No 02/16/2025 Education Answer Date Recorded Are you interested in more education? Not on bell e 10/23/2023 Are you concerned about learning? Not on file 10/23/2023 No 10/23/2023 No 10/23/2023 Food Answer Date Recorded Within the past 6 months we worried whether our food would run out before we got money to buy more. Never True 02/11/2025 Within the past 6 months the food we bought just didn't last and we didn't have enough money to get more. Never True Residential Stability Answer Date Recor ded What is your housing situation today? I have emperatriz de oliveira 02/11/2025 How many times have you move d in the past 12 months? Zero (I did not move) 02/11/2025 Paying for Meds Answer Date Recorded Do you have trouble paying for medicines? No 02/11/2025 Paying Utility Bills Answer Date Record ed Do you have trouble paying your heating or elect ricity bill? No 02/11/2025 Transportation Answer Date Recorded Has the lack of transportati on kept you from medical appointments or from getting medications? No 02/11/2025 Digital Access Answer Date Recorded No 02/11/2025 Yes 02/11/2025 Do you have reliable internet access at home? Ye s 02/11/2025 Do you have a device (e.g., phone, tablet, computer) with a working camera? Yes 02/11/2025 Intimate Partner Violence Answer Date R ecorded Are you denied basic needs s uch as food, clothing, or medical care? No 02/11/2025 In the past 12 months have y ou been in a relationship with a person who hurts, threatens, or tries to control you? No 02/11/2025 Are you denied basic needs s uch as food, clothing, or medical care? No 02/11/2025 In the past 12 months have y ou been in a relationship with a person who hurts, threatens, or tries to control you? No 02/11/2025 Comments Unknown Sex and Gender Information Value Date Recorded Sex Assigned at Not on file Legal Sex Female 10:31 AM EDT Gender Identity Choose not to disclose 5:53 PM EDT Sexual Orientation Don't know 10/23/2023 5: 53 PM EDT documented as of this encounter Last Filed Vital Signs Vital Sign Reading Time Taken Comments Blood Pressure 130/78 03/03/2025 11:01 AM EST Pulse 98 03/03/2025 11:01 AM EST Temperature 37.1 C (98.7 F) 03/03/2025 11:01 AM EST Respiratory Rate 18 03/03/2025 11:01 AM EST Oxygen Saturation 96% 03/03/2025 11:01 AM EST Inhaled Oxygen Concentration - - Weight - - Height - - Body Mass Index - - documented in this encounter Plan of Treatment Upcoming Encounters Date Type Department Care Team (Late st Contact Info) Description 03/10/2025 12:45 AM EST Appointment [facility] [address] [place] [phone] Eunice Ching, PT [address] [place] [address] 03/10/2025 2:30 AM EST Appointment [facility] [address] [place] [phone] Susan Brownlee, RN [address] [place] [address] 03/12/2025 Appointment [facility] [address] [place] [phone] Eunice Ching, PT [address] [place] [address] 03/12/2025 10:00 AM EST Appointment [facility] [address] [place] [address] Elaine Marquez, OT [address] [place] [address] 03/13/2025 10:00 AM EST Appointment [facility] [address] [place] [phone] Elaine Marquez, OT [address] [place] [address] 03/16/2025 2:30 AM EST Appointment [facility] [address] [place] [phone] Susan Brownlee RN [address] [place] [address] 03/17/2025 Appointment [facility] [address] [place] [phone] Elaine Marquez, OT [address] [place] [address] 03/19/2025 Appointment [facility] [address] [place] [phone] Elaine Marquez, OT [address] [place] [address] 03/23/2025 3:00 AM EST Appointment [facility] [address] [place] [address], [place] [phone] Susan Brownlee RN [address] [place] [address] 03/24/2025 Appointment [facility] [address] [place] [phone] Elaine Marquez, OT [address] [place] [address] 03/26/2025 Appointment [facility] [address] [place] [phone] Elaine Marquez, OT [address] [place] [address] 03/30/2025 1:00 AM EST Appointment [facility] [address] [place] [phone] Susan Brownlee RN [address] [place] [address] 03/31/2025 Appointment [facility] [address] [place] [address] Elaine Marquez, OT [address] [place] [address] 04/02/2025 Appointment [facility] [address] [place] [address] Elaine Marquez, OT [address] [place] [address] 04/06/2025 1:30 AM EST [facility]ment [facility] [address] [place] [address] Susan Brownlee RN [address] [place] [address] 04/13/2025 2:00 AM EST Appointment [facility] [address] [place] [address] Susan Brownlee RN [address] [place] [address] 10/08/2025 9:30 AM EDT Office Visit [facility] [address] [place] [phone] Michele London MD [address] [place] [address], [address] [place] [address] documented as of this encounter Visit Diagnoses Not on filedocumented in this encounter Home Health Visit - Care Plan Visit Details Visit Type -OT EVALUATION Discipline -Occupational Therapy Problems Problem Description Start Date Status Goals Interve ntions HH - Medication Management Disciplines: All Active Home Health Disciplines 02/16/2025 Active 1 goal linked to scheduled/document ed intervention 2 goal interventions scheduled/document ed in this visit HH - Focus of Care and Teaching Disciplines: All Active Home Health Disciplines w/RD 02/16/2025 Active 1 goal linked to scheduled/document ed intervention 1 goal intervention scheduled/document ed in this visit HH - Community Resources - Lack of Knowledge/Access Disciplines: All Active Home Health Disciplines 02/16/2025 Active 1 goal linked to scheduled/document ed intervention 1 goal intervention scheduled/document ed in this visit HH - Falls - Risk of Disciplines: All Active Home Health Disciplines 02/16/2025 Active 1 goal linked to scheduled/document ed intervention 1 goal intervention scheduled/document ed in this visit HH - Standard of Care Disciplines: All Active Home Health Disciplines 02/16/2025 Active 1 goal linked to scheduled/document ed intervention 2 goal interventions scheduled/document ed in this visit HH - Pain Disciplines: All Active Home Health Disciplines 02/16/2025 Active 1 goal linked to scheduled/document ed intervention 1 goal intervention scheduled/document ed in this visit HH - ADL/IADL Impairment and Therapeutic Interventions Disciplines: Occupational Therapy 03/03/2025 Active 1 goal linked to scheduled/document ed intervention 1 goal intervention scheduled/document ed in this visit Goals Goal Associated Problem Outcome Goal Met? Visit Notes HH - Safe medication management, avoid unnecessary harm related to medication errors and/or interactions HH - Medication Management No HH - Communication and collaboration to achieve patient goals HH - Focus of Care and Teaching No HH - Demonstrate/verbalize knowledge of community resources HH - Community Resources - Lack of Knowledge/Access No HH - Knowledge and management of fall prevention measures. HH - Falls - Risk of No HH - Achieve care management for a safe to home/community discharge from homecare HH - Standard of Care No HH - Frequency of pain interfering with patient's activity or movement will improve with activity or movement by discharge. Description: Pain will be managed over the course of care. Patient's acceptable level of pain is 2 - less often than daily. HH - Pain No HH - Promote higher level of independence with performance of ADLs/IADLs. Description: OT GOALS: 1. Pt will participate in cognitive assessment to determine need for cognitive intervention by 04/04/25 2. Pt will demonstrate improved cognitive strategies/modification to support memory of ADL routines and home safety by 04/04/25 3. Pt will demonstrate e.con strategies to support decreased RPE with ADLs/IADLs by 04/04/25 4. Pt will demonstrate safely cleaning bathroom by 04/04/25 HH - ADL/IADL Impairment and Therapeutic Interventions No Interventions Intervention Associated Problem/Goal Status Variance Visit Notes HH - I/E medication management: administration, purpose, dosages, preparation, setup, scheduling, side effects, food/drug interactions, and potential complications as indicated Description: Update patient's copy of medication list as needed. Problem:HH - Medication Management Goal:HH - Safe medication management, avoid unnecessary harm related to medication errors and/or interactions Performed HH - Complete medication review every visit and medication reconciliation as indicated. Pharmacy information: Problem:HH - Medication Management Goal:HH - Safe medication management, avoid unnecessary harm related to medication errors and/or interactions Performed HH - Focus of care, teaching completed and plan for next visit Problem:HH - Focus of Care and Teaching Goal:HH - Communication and collaboration to achieve patient goals Performed Ashtyn Reason for skilled OT referral: Patient is a 69-year-old female who was referred for skilled OT services s/p [facility]. DC 02/13. SOC 02/14-02/15. Dx migraine, vertigo, MS, DM, HTN. PRECAUTIONS: fall risk, MS, STM loss HCP: not on file CO DE STATUS: FULL CODE PCP: Pascale Murray PA [address] [place] [address] Dr A[address] [address] [facility] [address]. Turner (In progress to change closer) PAST MEDICAL HISTORY: Asthma, Diabetes mellitus, Hyp erlipidemia, Hypertensive disorder, Major depressive disorder; single episode, memory loss, migraine, MS, neuromuscular disease ALLERGIES: Celebrex, Luvox, Zoloft PHARMACY: [facility] 5 DAY EVAL WINDOW: not met, PCP aware ----- PRESENT PARTI ES AT EVALUATION: patient Patient A&O x 3 (not to time/date) Person: yes Place: yes Time: Used calendar to determine Situation: yes SUPPORT SYSTEM: I don't have one. The environment I live in is toxic. There are bullies. If push comes to shov e, my neighbor will help EMERGENCY PLAN/SUPPLIES: Exit home with 4ww via main entrance, (I) call phone use LIVES WITH: alone (apartment building) HOME SET UP: Pt lives alone on first floor of apartment building in cluttered one bedroom apartmen t with ADA bathroom with grab bars and large stall shower with 1 lip and pull down seat. PRESENT EQUIPMENT: 4ww, shower seat (drop down), grab bars in bathroom PRIOR LEVEL OF FUNCTION/OCCUPATIONAL PROFILE: pt reports cognitive skills impacting soc ial and (I) in home FALL HISTORY: I soft fall often. I have had injuries from falling this year CURRENT LEVEL OF FUNCTION: -ADLS - Dressing: (I) Extra time I only wear loose pants and shirts and I stay in my pajamas often . Bathing: (daily): Taxing (I) Feeding/Eating: Toileting: (I) taxing Grooming: (I) Func mob: use of 4ww, furniture walks in home Incontinence: bladder (wear pads) and bowel Sleep: nap only if I have to Sleep is broken up because I have RLS and wake 2-3 times nig htly to use the bathroom Transfers: Sit<>stand: (I) Shower transfer: standby Toilet Transfer: (I) Bed transfer: (I) Med management: Pt receive medication from [facility], (I) organizes and manages (I) -IADLS- Laundry: Mod(I), taxing Mail: Mod(I) , taxing Meal prep: Mod(I), taxing Cleaning: Mod(I), taxing - [employer] assessed for support Shopping: Mod(I) Finances: (I) Transportation: I haven't driven since 2016 . I take PVTA Hobbies/interests: reading but I don't see well, plant care Handedness: right RUE strength: WFL RUE ROM: WFL LUE strength: WFL LUE ROM: WFL RUE finger opposition: intact LUE finger opposition: intact RUE finger to nose: intact LUE finger to nose: intct Sensation: intact Fine motor: mild concern H OME SAFETY CONCERNS: clutter PT/CAREGIVER EDUCATION AND RECOMMENDATIONS: -OT scope of practice -Goals setting with patient input -Use of erika (like [employer]) for library access to e books or audio books ADRIANE INDEX = 75 (<20 totally dependent, 20 -39 very dependent, 40-59 partially dependent, 60-79 minimally dependent, 80-100 independent) ----- OT POC: Skilled OT evaluation and 2w4 Patient would benefit from skilled OT services in order to maximize safety and independence with ADLs/IADLs a nd ensure safe return to PLOF. Without skilled OT intervention, pt is at risk for further decline and reinjury/rehospitaliz ation. Pt is presently homebound. PATIENT CONCERNS: clean bathroom/clean shower bars kept at bottom of shower, I want to set my apartment up so I am not living in chaos, attention to task is difficult OT GOALS: OT GOALS: 1. Pt will participate in cognitive assessment to determine need for cognitive intervention by 04/04/25 2. Pt will demonstrate improved cognitive strategies /modification to support memory of ADL routines and home safety by 04/04/25 3. Pt will demonstrate e.con strategies to support decreased RPE with ADLs/IADLs by 04/04/25 4. Pt will demonstrate safely cleaning bathroom by 04/04/25 VISITS MAY BE OMITTED DUE TO PATIENT REFUSAL OR MEDICAL APPOINTMENTS. HH - Assess need for community resources Problem:HH - Community Resources - Lack of Knowledge/Access Goal:HH - Demonstrate/verbalize knowledge of community resources Performed HH - I/E fall prevention measures Description: cognitive impairment: strategies to minimize impairments with memory deficits, distractibility, judgement, impulsivity, and safety awareness, diagnosis/age related changes/prior history of falls: symptoms and side effects of illness/injury/history of fal ls placing patient at increased risk for falls. may include management of dizziness/orthostasis, environmental hazards: modification of environment to include clear walkways, secure animals, and move frequently used items within reach, use of equipment, impaired functional mobility: supervision for mobility/activity, appropriate footwear and as indicated safe use of assistive device(s), incontinence: management of incontinence to include safe toileting, need for absorbent garments, address urgency/frequ ency , pain affecting level of function: impact of pain on an increased risk of falls and poly pharmacy: side effects of medications placing a patient at high risk for a fall Problem: - Falls - Risk of Goal:HH - Knowledge and management of fall prevention measures. Performed HH - Assess vital signs, pulse oximetry, pain, and as indicated, orthostatic vital signs Description: use agency-specific parameters Problem: - Standard of Care Goal:HH - Achieve care management for a safe to home/community discharge from homecare Performed HH - Assess skin integrity Problem:HH - Standard of Care Goal:HH - Achieve care management for a safe to home/community discharge from homecare Performed HH - Assess pain Problem: - Pain Goal:HH - Frequency of pain interfering with patient's activity or movement will improve with activity or movement by discharge. Performed HH - Assess ADL/IADL performance, safety, management, and durable medical equipment Problem:HH - ADL/IADL Impairment and Therapeutic Interventions Goal:HH - Promote higher level of independence with performance of ADLs/IADLs. Performed documented in this encounter Care Teams Charging Machine Operator Relationship Specialty Start Date End Date Pascale Murray PA [address] [place] [address] [place] [address] PCP - General Physician Aircraft Instrument Repairer 02/12/25 documented as of this encounter Additional Source Comments The information contained in this document represents components of the legal health record. It is not the complete legal health record.[facility]
--- NOTE | 2025-03-06 13:15 | A.OFFPC_ITS ---
Vital Signs 03/06/25 13:18 Height 5 ft 3 in Weight 201 lb 6 oz BMI 35.7 BP 130/90 H Blood Pressure Location Lt brachial Position Sitting Pulse 102 H Pulse Source Pulse Oximeter Temp 97.1 F Temp Source Temporal Artery Scan Pulse Oximetry (%) 96 Oxygen Delivery Method Room Air Intake Visit Reasons: [facility] 02/11 uncontrolled BP Intake Note: Patient is here to follow-up after a visit the emergency department at [facility] on 02/11/25. Corporate Account Executive Required: No Pompom Maker: Not Required per policy Accompanied by: Self / Same As Patient Allergies celecoxib (From CELEBREX) Allergy (Severe, Verified 03/06/25 13:17) RASH AND DIFFICULTY BREATHING fluvoxamine (From LUVOX) Allergy (Severe, Verified 03/06/25 13:17) GRAND MAL SEIZURE acetaminophen (From TYLENOL) Allergy (Intermediate, Verified 03/06/25 13:17) LIVER TOX sertraline (From ZOLOFT) Allergy (Intermediate, Verified 03/06/25 13:17) ABD PAIN Tobacco use date assessed: 03/06/25 Fall risk assessment: No Falls in past year Last assessed Fall Risk: 03/06/25 Dental Screening Dental Screen Date: 12/31/24 HPI HPI Comments History of Present Illness Details 69 y/o female [facility]. She was admitted at [facility] from 02/11?02/13 for evaluation and treatment of acute headaches. Reports good relief with Imitrex, IV magnesium, and fluids during admission. Requests Imitrex prescription, noting it has been effective in the past. She follows with Dr. Sanon ([facility]) for migraine headaches, vertigo, and multiple sclerosis. Patient reports a history of hypertension; during hospitalization, BP was elevated. She is currently prescribed Losartan, HCTZ, and Metoprolol. States her PCP advised taking only HCTZ 12.5 mg. She has not taken her medications yet today. Requests referral to A @ [facility] for speech therapy and to establish care with a new neurologist at [facility] Medical History (Updated 03/06/25 @ 17:10 by Francine Marte NP) Generalized headaches Herniated disc Ectopic Blindness Bipolar 2 disorder PTSD (post-traumatic stress disorder) MDD (major depressive disorder) Asthma Surgical History Hx of rotator cuff surgery Family History (Updated 03/06/25 @ 13:16 by CARIDAD Ngo) Sister Breast cancer Sister Breast cancer Brother Heart attack Mother Stroke Father Heart problem Borderline high blood pressure Social History Housing: Apartment Alcohol intake: current Alcohol intake frequency: a few times a week Patient Tobacco Use Status: Former Tobacco user Tobacco use type: Cigarette e-Cigarette/Vaping Use: Never Used Second Hand Smoke Exposure: Yes service: No Current occupational status: retired and disabled Gender identity: Female Cognitive needs: Yes Hearing needs: Yes (had hearing test two year ago pt states 25% of hearing loss.) Vision needs: Yes Questionnaire Thrive Questionnaire Date Thrive assessed: 08/21/24 I am a: Patient What is your living situation today?: I have a place to live, but I am worried about losing it in the future Within the past 12 months, did the food you bought not last and you didn't have the money to get more?: Often true Within the past 12 months, did you worry whether your food would run out before you got money to buy more?: Often true Do you have trouble paying for medicines?: I choose not to answer this question Do you have trouble getting transportation to medical appointments?: Yes Do you have trouble paying your heating and electricity bill?: I choose not to answer this question Do you have trouble taking care of your child, family member or friend?: Yes Do you have trouble with day-to-day activities such as bathing, preparing meals, shopping, managing finances, etc.?: Yes Are you currently unemployed and looking for a job?: I choose not to answer this question Are you interested in more education?: No THRIVE Score: 4 TRAV-7 AMB Questionnaire TRAV-7 Date TRAV - 7 assessed: 09/30/24 Source: Developed by Drs. Germán Hernandez, Henrietta Vitale, Danis Ha and colleagues, with an educational terence from [employer]. Review of Systems Const All systems reviewed & are unremarkable except as noted in HPI and below Neuro Reports Abnormal speech present Physical exam (Primary Care) Vital Signs: Last Vital Signs Temp 97.1 F 03/06/25 13:18 Pulse 102 H 11/07/25 13:18 BP 130/90 H 03/06/25 13:18 Pulse Ox 96 03/06/25 13:18 Oxygen Delivery Method Room Air 03/06/25 13:18 BMI result Body Mass Index 35.7 Tobacco/Smoking Status: Tobacco use Status Tobacco use date assessed 03/06/25 03/06/25 13:24 Patient Tobacco Use Status Former Tobacco user 03/06/25 13:24 Tobacco use type Cigarette 03/06/25 13:24 e-Cigarette/Vaping Use Never Used 03/06/25 13:24 Thrive Assessment: Date of Thrive Assessment Date Thrive assessed 08/21/24 03/06/25 13:24 Const General: no acute distress Nutritional Appearance: obese Orientation/consciousness: patient oriented x3 Limitations: ambulation with walker Resp Effort & Inspection: normal respiratory effort Cardio Heart sounds: S1 normal heart sound present and S2 normal heart sound present Neuro General: patient oriented x3 and moves all extremities Speech: Abnormal speech present stuttering Psych Attitude: cooperative Coding Level of Care Code Est Pt Level 4 (29823) Diagnoses Generalized headaches R51.9 Time Spent (min) 20 Assessment & Plan Assessment & Plan (1) Generalized headaches: Code(s): R51.9 - Headache, unspecified Category: Medical Plan: Prescribe Imitrex (Sumatriptan) as previously effective, PRN for migraine episodes. Reinforce adherence to antihypertensive medications; monitor BP at home. Continue current regimen per PCP recommendations. Patient already has a Referral for Speech therapy with [facility]. Refer to Neurology at [facility] for ongoing management of migraine, vertigo, and MS. Follow-up in clinic as needed for medication and BP monitoring. Orders: Referrals Neurology Referral G35 - Multiple sclerosis, G43.909 - Migraine, unspecified, not intractable, without status migrainosus, R42 - Dizziness and giddiness Medications: New sumatriptan succinate (Imitrex) Take 1 tab at onset of headache; if no relief may repeat 1 tab after at least 2 hrs; max = 3 tabs/24 hr PO 20 tabs 0RF R51.9 - Headache, unspecified
[2025-03-06 13:18] VITALS: BP 130/90; PULSE 102; TEMP 36.2; O2SAT 96; BMI 35.7
--- OUTSIDE RECORDS SUMMARY | 2025-03-06 15:22 | XMS_ITS | Encounter Summary ---
Author Organization [facility] Address [address] [place] [address] Phone Care Team Providers Care Tool Radial Drill Press Set Up Operator Name Role Phone Pcp, Unknown Primary Care Provider Pascale Gilman Primary Care Provide r Encounter Details Date Type Department Care Team ([facility] st Contact Info) Description 02/11/2025 Procedure Pass [facility], Ct Scan - [facility] [address] [place] [address] Social History Tobacco Use Types Packs/Day Years Used Date Smoking Tobacco: Former Smokeless Tobacco: Never Alcohol Use Standard Drinks/Week Comments Not Currently 0 (1 standard drink = 0.6 oz pur e alcohol) Education Answer Date Recorded Are you interested [...] your housing situation today? I have emperatriz sing 02/11/2025 How many times have you move [...] PM EDT documented as of this encounter Functional Status * Calculated C-SSRS Risk Score (Lifetime/Recent) Answer Date of Assessment Author No Risk Indicated 02/11/2025 8:54 PM EDT Deidra Araiza RN * [place] Suicide Severity Rating Scale (Screener/Recent Self-Report) Question Answer Date of Assessment Author 1. Wish to be (Past 1 Month) No 02/11/2025 8:54 PM EDT Deidra Araiza , PAWAN 2. Non-Specific Active Suici keyla Thoughts (Past 1 Month) No 02/11/2025 8:54 PM EDT Yuniel Araiza, PAWAN 6. Suicidal Behavior (Lifetime) No 8:54 PM EDT Deidra Araiza, RN documented as of this encounter Plan of Treatment Upcoming Encounters Date Type Department Care Team (Late st Contact Info) Description 03/10/2025 12:45 AM EST Appointment [facility] [address] [place] [address] Eunice Ching, PT [address] [place] [address] 03/10/2025 2:30 AM EST Appointment [facility] [address] [place] [address] Susan Brownlee RN [address] [place] [address] 03/12/2025 Appointment [facility] [address] [place] [address] Eunice Ching, PT [address] [place] [address] 03/12/2025 10:00 AM EST Appointment [facility] [address] [place] [address] Elaine Marquez, OT [address] [place] [address] 03/13/2025 10:00 AM EST Appointment [facility] [address] [place] [address] Elaine Marquez, OT [address] [place] [address] 03/16/2025 2:30 AM EST Appointment [facility] [address] [place] [address] Susan Brownlee RN [address] [place] [address] 03/17/2025 Appointment [facility] [address] [place] [address] Elaine Marquez, OT [address] [place] [address] 03/19/2025 Appointment [facility] [address] [place] [address] Elaine Marquez, OT [address] [place] [address] 03/23/2025 3:00 AM EST Appointment [facility] [address] [place] [address] Susan Brownlee RN [address] [place] [address] 03/24/2025 Appointment [facility] [address] [place] [address] Elaine Marquez, OT [address] [place] [address] 03/26/2025 Appointment [facility] [address] [place] [address] Elaine Marquez, OT [address] [place] [address] 03/30/2025 1:00 AM EST Appointment [facility] [address] [place] [address] Susan Brownlee RN [address] [place] [address] 03/31/2025 Appointment [facility] [address] [place] [address] Elaine Marquez, OT [address] [place] [address] 04/02/2025 Appointment [facility] [address] [place] [address] Elaine Marquez, GIOVANA [address] [place] [address] 04/06/2025 1:30 AM EST Appointment [facility] [address] [place], [place] [phone] Susan Brownlee RN [address] [place] [address] 04/13/2025 2:00 AM EST Appointment [facility] [address] [place] [address] Susan Brownlee RN [address] [place] [address] 10/08/2025 9:30 AM EDT Office Visit [facility] [address] [place] [phone] Michele London MD [address] [facility], [address]nd [place] [address] [email or web address] documented as of this encounter Visit Diagnoses Not on filedocumented in this encounter Care Teams Tool Radial Drill Press Set Up Operator Relationship Specialty Start Date End Date Pcp, Unknown PCP - General 03/18/24 02/11/25 Pascale Murray PA [address] [place] [address] Dr Ayers [address] [place] [id number] PCP - General Physician Cosmetology Instructor 02/12/25 documented as of this encounter Additional Source Comments The information contained in this document represents components of the legal health record. It is not the complete legal health record.[facility]
--- OUTSIDE RECORDS SUMMARY | 2025-03-06 15:22 | XMS_ITS | Encounter Summary ---
Author Organization [facility] Address [address] [place] [phone] Phone Care Team Providers Care Business Segment Manager Name Role Phone Pcp, Unknown Primary Care Provider Pascale Gilman Primary Care Provide r Encounter Details Date Type Department Care Team (Late st Contact Info) Description 02/11/2025 Procedure Pass [facility] [address] [place] [address] Social History Tobacco Use Types Packs/Day Years [...] 8:54 PM EDT Deidra Araiza RN * [place] Suicide Severity Rating Scale (Screener/Recent Self-Report) Question Answer Date of Assessment Author 1. Wish to be (Past 1 Month) No 025 8:54 PM EDT Deidra Araiza, PAWAN 2. Non-Specific Active Suici keyla Thoughts (Past 1 Month) No 02/11/2025 8:54 PM EDT Tania Araiza, PAWAN 6. Suicidal Behavior (Lifetime) No 5 8:54 PM EDT Deidra Araiza, RN documented as of this encounter Plan of Treatment Upcoming Encounters Date Type Department Care Team (Late st Contact Info) Description 03/10/2025 12:45 AM EST Appointment [facility] [address] [place] [address] Eunice Ching, PT [address] [place] [address] 03/10/2025 2:30 AM EST Appointment [facility] [address] [place] [address] Susan Brownlee RN [address] [place] [address] 03/12/2025 Appointment [facility] [address] [place] [address] Eunice Ching, PT [address] [place] [address] 03/12/2025 10:00 AM EST Appointment [facility] [address] [place] [address] Elaine Marquez, OT [address] [place] [address] [email or web address] 03/13/2025 10:00 AM EST Appointment [facility] [address] [place] [address] Elaine Marquez, OT [address] [place] [address] 03/16/2025 2:30 AM EST Appointment [facility] [address] [place] [address] Susan Brownlee RN [address] [place] [address] 03/17/2025 Appointment [facility] [address] [place] [address] Elaine Marquez, OT [address] [place] [address] 03/19/2025 Appointment [facility] [address] [place] [address] Elaine Marquez, OT [address] [place] [address] 03/23/2025 3:00 AM EST Appointment [facility] [address] [place] [address] Susan Brownlee RN [address] [place] [address] 03/24/2025 Appointment [facility] [address] [place] [address] Elaine Marquez, OT [address] [place] [address] 03/26/2025 Appointment [facility] [address] [place] [address] Elaine Marquez, OT [address] [place] [address] 03/30/2025 1:00 AM EST Appointment [facility] [address] [place] [address] Susan Brownlee, PAWAN [address] [place] [address] 03/31/2025 Appointment [facility] [address] [place] [address] Elaine Marquez, OT [address] [place] [address] 04/02/2025 Appointment [facility] [address] [place] [address] Elaine Marquez OT [address] [place] [address] 04/06/2025 1:30 AM EST Appointment [facility] [address] [place], [place] [phone] Susan Brownlee RN [address] [place] [address] 04/13/2025 2:00 AM EST Appointment [facility] [address] [place] [address] Susan Brownlee RN [address] [place] [address] 10/08/2025 9:30 AM EDT Office Visit [facility] [address] [place] [address] Michele London MD [address] [facility], [address]nd [place] [address] [email or web address] documented as of this encounter Visit Diagnoses Not on filedocumented in this encounter Care Teams Business Segment Manager Relationship Specialty Start Date End Date Pcp, Unknown PCP - General 03/18/24 02/11/25 Pascale Murray PA [address] [place] [address] Dr Ayers [address] [place] [id number] PCP - General Physician Director Of Entertainment 02/12/25 documented as of this encounter Additional Source Comments The information contained in this document represents components of the legal health record. It is not the complete legal health record.[facility]
--- OUTSIDE RECORDS SUMMARY | 2025-03-06 15:22 | XMS_ITS | Clinical Summary ---
Author Organization [facility] Address [address] [place] [phone] Phone Care Team Providers Care Iap Displays Analyst Name Role Phone P[facility]ale [facility] Primary Care Provide r Allergies Active Allergy Reactions Criticality Noted Date Comments Celebrex (Celecoxib) Hives 05/21/2014 Luvox (Fluvoxamine) Unknown 05/21/2014 Sertraline 10/23/2023 Medications metFORMIN (FORTAMET) 1000 MG (OSM) 24 hr tablet Take 500 mg by mouth daily with breakfast. Active hydroCHLOROthia zide 12.5 MG tablet Take by mouth daily. Active meclizine (ANTIVERT) 12.5 mg tablet Take 12.5 mg by mouth 3 (three) times a day as needed for dizziness. Active metoprolol tartrate (LOPRESSOR) 25 MG tablet Take 25 mg by mouth daily. Active furosemide (LASIX) 20 MG tablet Take 20 mg by mouth daily. Active docusate sodium (COLACE) 100 MG capsule Take 100 mg by mouth 2 (two) times a day. Active aspirin 81 MG EC tablet Take 81 mg by mouth daily. Active atorvastatin (LIPITOR) 10 MG tablet Take 10 mg by mouth daily. Active losartan (COZAAR) 25 MG tablet Take by mouth daily. 02/21/20 25 Discontinue d(Discontin ued by another clinician) Active Problems Problem Noted Date Diagnosed Date Migraine headache 02/12/2025 Assessment & Plan (02/12/2025 3:49 PM EDT): MRI was reassuring there was question of partial empty sella Discussed with neurology her headaches are not suggestive of this i.e. not positional not associated with diplopia or tinnitus Migraine headache is improving but has recurred will again use intravenous medications that were helpful yesterday magnesium hydration prochlorperazine IV fluids Discussed with her she will need neurology follow-up she has an outpatient neurologist and she was planning to reschedule the appointment but encouraged her to keep the current date Right leg swelling 02/11/2025 Assessment & Plan (02/12/2025 3:49 PM EDT): Mild right leg edema. She had an ultrasound of her right leg and no DVT was seen Assessment & Plan (02/11/2025 7:01 PM EDT): Mild right leg edema. Notes that she had an ultrasound at [facility] in December, results are uncertain though she reports it may have been a DVT. She is not on any anticoagulation. Currently with negative Homans' sign. No pleuritic symptoms, hypoxia. No tachycardia. - Follow-up ultrasound -D-dimer pending Type 2 diabetes mellitus, wi thout long-term current use of insulin 02/11/2025 Assessment & Plan (02/12/2025 3:49 PM EDT): Continue current insulin as needed resume metformin at discharge Assessment & Plan (02/11/2025 7:02 PM EDT): Hold metformin while hospitalized. - Lispro sliding scale as needed - Follow-up A1c Disorder of thyroid 05/21/2014 Overview (06/20/2014): Disorder of thyroid gland Assessment & Plan (02/12/2025 3:49 PM EDT): Reports recent ultrasound of the thyroid, scheduled to have biopsy. TSH is low 0.11 -She is already undergoing an outpatient workup which should be continued Assessment & Plan (02/11/2025 7:01 PM EDT): Reports recent ultrasound of the thyroid, scheduled to have biopsy. -Follow-up TSH -Follow-up with PCP Hypertensive disorder 05/21/2014 Overview (06/20/2014): Hypertensive disorder Assessment & Plan (02/12/2025 3:49 PM EDT): History of high blood pressure. Reports blood pressures recently low and hydrochlorothiazide was reduced from 25->12.5, recently started on metoprolol. HCTZ still on hold Initially her antihypertensives were held with metoprolol and losartan restarted today Assessment & Plan (02/11/2025 7:01 PM EDT): History of high blood pressure. Reports blood pressures recently low and hydrochlorothiazide was reduced from 25->12.5, recently started on metoprolol. -Holding antihypertensives to allow for permissive hypertension -Allow for permissive HTN with SBP goal <220. If SBP > 220, IV Labetalol prn; nicardipine/clevidipine drip if persistently high for the first 24h, After 24- 48h sBP goal < 180, after 48h from onset of symptoms: sBP goal < 140. Allergic asthma 05/21/2014 Overview (06/20/2014): Allergic asthma Resolved Problems Problem Noted Date Diagnosed Date Resolved Date Orthopnea 02/11/2025 02/12/2025 Assessment & Plan (02/11/2025 7:01 PM EDT): Patient does not sleep flat, reports shortness of breath chronically with this. Lung sound clear, no significant edema. Appears euvolemic. - Baseline CXR -Follow-up BNP -Echocardiogram pending -Pulse oximetry monitoring Headache 02/11/2025 02/12/2025 Assessment & Plan (02/11/2025 7:01 PM EDT): History of headaches/migraines. Much of her migraines resolved in her 30s or 40s. She does report chronic daily headache treated well with ibuprofen, rest. Current headache and ache is different than her baseline. Currently 8 out of 10, diffuse. No nuchal rigidity or fevers. Received Tylenol and dexamethasone in ED. - IV magnesium - Tylenol, Toradol as needed -Oxycodone as needed Encounters Date Type Department Care Team Description 03/03/2025 10:00 AM EST Home Care Visit [facility] [address] [place] [phone] Elaine Marquez, OT OT EVALUATION 02/26/2025 Episode Documentation Update [facility] [address] [place] [phone] LinaElina 02/25/2025 Home Care Visit [facility] [address] [place] [phone] Elaine Marquez, OT TELEPHONE ENCOUNTER 02/24/2025 2:00 PM EDT Home Care Visit [facility] [address] [place] [address] Eunice Ching, PT PT HOME VISIT 02/24/2025 1:45 PM EDT Home Care Visit [facility] [address] [place] [phone] Kishor Zafar SN HOME VISIT 02/24/2025 Home Care Visit [facility] [address] [place] [phone] Elaine Marquez, OT TELEPHONE ENCOUNTER 02/23/2025 Home Care Visit [facility] [address] [place] [phone] Eunice Ching, PT TELEPHONE ENCOUNTER 02/19/2025 Home Care Visit [facility] [address] [place] [phone] Samara Casillas, PT TELEPHONE ENCOUNTER 02/18/2025 3:30 PM EDT Home Care Visit [facility] [address] [place] [phone] Eunice Ching, PT PT EVALUATION 02/16/2025 12:45 PM EDT Home Care Visit [facility] [address] [place] [phone] Zuly Aldana, RN SN OASIS START OF CARE (SOC) 02/16/2025 Plan of Care [facility] [address] [place] [phone] 02/14/2025 [facility] [address] [place] [address] Jami Dean, PAWAN CASE COMMUNICATION 02/11/2025 11:24 AM EDT - 02/13/2025 3:23 PM EDT Hospital Encounter [facility] [address] [place] [address] Santo Conway MD Steinberg, Benjamin G, MD Grachev, Maksim, DO Kielbasa, Linda Barreto MD Discharge Disposition: Home or Self Care 02/11/2025 Procedure Pass [facility] [address] [place] [phone] 02/11/2025 Procedure Pass [facility], Mri - [address] [address] 02/11/2025 Orders Only [facility] [address] [place] [address] Homehealth, Interface ProviderMD 02/11/2025 Procedure Pass [facility] Ct Scan - [address] [id number] from Last 3 Months Social History Tobacco Use Types Packs/Day Years Used Date Smoking Tobacco: Former Smokeless Tobacco: Never Tobacco Cessation:Counseling Given: Not Answered Alcohol Use Standard Drinks/Week Comments Not Currently [...] 11:01 AM EST Respiratory Rate 18 03/03/2025 11:0 1 AM EST Oxygen Saturation 96% 03/03/2025 11: 01 AM EST Inhaled Oxygen Concentration - - Weight 90.7 kg (199 lb 15.3 oz) 02/11/2025 7:37 PM EDT Height 161.3 cm (5' 3.5 ) 02/12/2025 12 :30 AM EDT Body Mass Index 34.87 02/11/2025 7:37 PM EDT Plan of Treatment Upcoming Encounters Date Type Department Care Team (Late st Contact Info) Description 03/10/2025 12:45 AM EST Appointment [facility] [address] [place] [address] Eunice Ching, PT [address] [place] [address] 03/10/2025 2:30 AM EST Appointment [facility] [address] [place] [address] Susan Brownlee, RN [address] [place] [address] 03/12/2025 Appointment [facility] [address] [place] [address] Eunice Ching, PT [address] [place] [address] 03/12/2025 10:00 AM EST Appointment [facility] [address] [place] [address] Elaine Marquez, OT [address] [place] [address] 03/13/2025 10:00 AM EST Appointment [facility] [address] [place] [address] Elaine Marquez, OT [address] [place] [address] 03/16/2025 2:30 AM EST Appointment [facility] [address] [place] [phone] Susan Brownlee, RN [address] [place] [address] 03/17/2025 Appointment [facility] [address] [place] [phone] Elaine Marquez, OT [address] [place] [address] 03/19/2025 Appointment [facility] [address] [place] [phone] Elaine Marquez, OT [address] [place] [address] 03/23/2025 3:00 AM EST Appointment [facility] [address] [place] [phone] Susan Brownlee, RN [address] [place] [address] 03/24/2025 Appointment [facility] [address] [place] [phone] Elaine Marquez, OT [address] [place] [address] 03/26/2025 Appointment [facility] [address] [place] [phone] Elaine Marquez, OT [address] [place] [address] 03/30/2025 1:00 AM EST Appointment [facility] [address] [place] [phone] Susan Brownlee RN [address] [place] [address] 03/31/2025 Appointment [facility] [address] [place] [phone] Elaine Marquez, OT [address] [place] [address] 04/02/2025 Appointment [facility] [address] [place], [place] [phone] Elaine Marquez, OT [address] [place] [address] 04/06/2025 1:30 AM EST Appointment [facility] [address] [place] [phone] Susan Brownlee RN [address] [place] [phone] 04/13/2025 2:00 AM EST Appointment [facility] [address] [place], [place] [phone] Susan Brownlee RN [address] [place] [phone] 10/08/2025 9:30 AM EDT Office Visit [facility] Neurology [address] [place] [phone] Michele London MD [address] [facility] [place] [address] Health Maintenance Due Date Last Done Comments DEPRESSION SCREENING 1968 SMOKING Hx and SMOKELESS TOBACCO SCREENING 1969 HEPATITIS C SCREENING 1974 PNEUMOCOCCAL VACCINES (50+ years) (1 of 2 - PCV) 12/05/1975 MAMMOGRAM 1996 COLOGUARD 2001 COLONOSCOPY 2001 COLORECTAL CANCER SCREENING 2001 FIT TEST 2001 FOBT 2001 SIGMOIDOSCOPY 2001 VIRTUAL COLONOSCOPY 2001 RSV VACCINE (1 - Risk 50-74 years 1-dose series) 2006 ZOSTER VACCINES (1 of 2) 2006 OSTEOPOROSIS SCREENING INITIAL (ONE-TIME) 2021 Adult Td,Tdap Booster 05/31/2024 05/31/2014 INFLUENZA VACCINE (#1) 2024 COVID-19 VACCINE (1 - season) 2024 DIABETIC EYE EXAM 02/11/2025 URINE MICROALBUMIN/CREATININE RATIO 02/11/2025 HEMOGLOBIN A1C 08/13/2025 02/12/2025, 06/08/2014 BLOOD PRESSURE 08/31/2025 03/03/2025 CREATININE LEVEL 02/13/2026 02/13/2025, , 02/11/2025, Additional history exists POTASSIUM LEVEL 02/13/2026 02/13/2025, 01/28, 02/11/2025, Additional history exists HEPATITIS A VACCINES Aged Out No long er eligible based on patient's age to complete this topic HIB VACCINES Aged Out No longer eligi ble based on patient's age to complete this topic IPV VACCINES Aged Out No longer eligi ble based on patient's age to complete this topic MENINGOCOCCAL VACCINES (ACWY) Aged Out No longer eligible based on patient's age to complete this topic MENINGOCOCCAL VACCINES (B) Aged Out N o longer eligible based on patient's age to complete this topic Medical Devices Not on file Procedures Procedure Name Priority Date/Time Associated Diagnosis Comments POCT GLUCOSE Routine 02/13/2025 11:31 AM EDT POCT GLUCOSE Routine 02/13/2025 7:38 AM EDT FREE T3 Routine 02/13/2025 6:01 AM EDT FREE T4 Routine 02/13/2025 6:01 AM EDT BASIC METABOLIC PANEL (BMP) Routine 02/13/2025 6:01 AM EDT CBC AND DIFFERENTIAL Routine 02/13/2025 6:01 AM EDT MAGNESIUM Routine 02/13/2025 6:01 AM EDT TSH WITH REFLEX Routine 02/13/2025 6:01 AM EDT POCT GLUCOSE Routine 02/12/2025 7:22 PM EDT POCT GLUCOSE Routine 02/12/2025 4:29 PM EDT POCT GLUCOSE Routine 02/12/2025 12:49 PM EDT TTE COMPREHENSIVE Required for discharge 02/12/2025 12:34 PM EDT Cerebral infarction, unspecified mechanism US LOWER EXTREMITY VEINS DUPLEX (RIGHT) Routine 02/12/2025 9:10 AM EDT Edema, unspecified type Right leg pain POCT GLUCOSE Routine 02/12/2025 7:40 AM EDT PT-INR Routine 02/12/2025 5:41 AM EDT PTT Routine 02/12/2025 5:41 AM EDT CBC Routine 02/12/2025 5:41 AM EDT HEMOGLOBIN A1C Routine 02/12/2025 5:41 AM EDT SEDIMENTATION RATE (ESR) Routine 02/12/2025 5:41 AM EDT C-REACTIVE PROTEIN (CRP), HIGH SENSITIVITY Routine 02/12/2025 5:41 AM EDT LIPID PANEL Routine 02/12/2025 5:41 AM EDT THYROID STIMULATING HORMONE (TSH) Routine 02/12/2025 5:41 AM EDT BASIC METABOLIC PANEL (BMP) Routine 02/12/2025 5:41 AM EDT POCT GLUCOSE Routine 02/11/2025 8:34 PM EDT D-DIMER Routine 02/11/2025 8:22 PM EDT LAB ADD ON Routine 02/11/2025 8:22 PM EDT MRI BRAIN WITH AND WITHOUT CONTRAST Required for discharge 02/11/2025 8:00 PM EDT XR CHEST PORTABLE Routine 02/11/2025 6:[address] ANGIO HEAD WITH AND WITHOUT CONTRAST, CT ANGIO NECK WITH CONTRAST Routine 02/11/2025 2:21 PM EDT ECG 12-LEAD STAT 02/11/2025 12:36 PM EDT NT-PROBNP Routine 02/11/2025 12:12 PM EDT PT-INR STAT 02/11/2025 12:12 PM EDT VENOUS BLOOD GAS STAT 02/11/2025 12:1 2 PM EDT LFTS (HEPATIC PANEL) STAT 02/11/2025 12:12 PM EDT BASIC METABOLIC PANEL (BMP) STAT 02/11/2025 12:12 PM EDT CBC AND DIFFERENTIAL STAT 02/11/2025 12:12 PM EDT from Last 3 Months Results * (ABNORMAL) POCT Glucose (02/13/2025 11:31 AM EDT) Only the most recent of7 resultswithin the time period is included. Glucose, POCT 176(H) 70 - 100 mg/dL [facility] 02/13/2025 11:3 1 AM EDT 02/13/2025 11:35 AM EDT us Linda Lundberg MD POINT OF CARE TEST ORDERABL ES Final Result Performing Organization Address City/[facility] Co de Phone Number [address] [address] * (ABNORMAL) TSH with reflex (02/13/2025 6:01 AM EDT) Pathologist [facility] TSH 0.08(L) 0.27 - 4.20 uIU/mL [facility] Blood 02/13/2025 6:01 AM EDT 02/13/2025 6:13 AM EDT us Linda Lundberg MD LAB BLOOD BKR ORDERABLES Fi nal Result Performing Organization Address [facility] Co de Phone Number [address] [address] * (ABNORMAL) CBC and differential (02/13/2025 6:01 AM EDT) Only the most recent of2 resultswithin the time period is included. WBC 8.51 4.00 - 11.00 K/uL [facility] RBC 3.67(L) 4.00 - 5.20 M/uL [facility] HGB 11.0(L) 12.0 - 16.0 g/dL [facility] HCT 35.4(L) 36.0 - 46.0 % [facility] PLT 322 150 - 450 K/uL [facility] MCV 96.5 80.0 - 100.0 fL [facility] MCH 30.0 27.0 - 31.0 pg [facility] MCHC 31.1(L) 32.0 - 36.0 g/dL [facility] RDW 13.0 11.5 - 14.5 % [facility] MPV 10.9 8.4 - 12.0 fL [facility] NRBC 0.00 0.00 /100 WBCs [facility] ABSOLUTE NRBC 0.00 0.00 K/uL [facility] DIFF METHOD Auto [facility] NEUTS 86.9(H) 48.0 - 76.0 % [facility] LYMPHS 7.5(L) 18.0 - 41.0 % [facility] MONOS 5.1 4.0 - 11.0 % [facility] EOS 0.0 0.0 - 5.0 % [facility] BASOS 0.0 0.0 - 1.5 % [facility] Granulocytes, immature (%) 0.5 0.0 - 0.9 % [facility] ABSOLUTE NEUTS 7.40 1.92 - 7.60 K/uL [facility] ABSOLUTE LYMPHS 0.64(L) 0.72 - 4.10 K/uL [facility] ABSOLUTE MONOS 0.43 0.16 - 1.10 K/uL [facility] ABSOLUTE EOS 0.00 0.00 - 0.50 K/uL [facility] ABSOLUTE BASOS 0.00 0.00 - 0.15 K/uL [facility] Granulocytes, immature 0.04 0.00 - 0.09 K/uL [facility] Blood 02/13/2025 6:01 AM EDT 02/13/2025 6:13 AM EDT us Linda Lundberg MD LAB BLOOD BKR ORDERABLES Fi nal Result [facility] [address] [place] [address] * (ABNORMAL) Free T3 (02/13/2025 6:01 AM EDT) FREE T3 1.9(L) 2.0 - 4.4 pg/mL [facility] 02/13/2025 6:01 AM EDT 02/13/2025 6:13 AM EDT us Linda Lundberg MD LAB BLOOD BKR ORDERABLES Fi nal Result Performing Organization Address City/[facility]/ZIP Co de Phone Number [address] [address] * Free T4 (02/13/2025 6:01 AM EDT) FREE T4 0.9 0.9 - 1.7 ng/dL [facility] 02/13/2025 6:01 AM EDT 02/13/2025 6:13 AM EDT Linda Lundberg MD LAB BLOOD BKR ORDERABLES Fi nal Result Performing Organization Address [facility] Co de Phone Number [address] [address] * Magnesium (02/13/2025 6:01 AM EDT) Pathologist [facility] MAGNESIUM 2.1 1.6 - 2.6 mg/dL [facility] Blood 02/13/2025 6:01 AM EDT 02/13/2025 6:13 AM EDT Linda Lundberg MD LAB BLOOD BKR ORDERABLES Fi nal Result Performing Organization Address [facility] Co de Phone Number [address] [address] * (ABNORMAL) Basic metabolic panel (02/13/2025 6:01 AM EDT) Only the most recent of3 resultswithin the time period is included. SODIUM 140 133 - 146 mmol/L [facility] CHLORIDE 105 96 - 108 mmol/L [facility] POTASSIUM 4.1 3.3 - 5.1 mmol/L [facility] CO2 25 21 - 35 mmol/L [facility] BUN 27(H) 6 - 19 mg/dL [facility] CREATININE 0.70 0.5 - 1.5 mg/dL [facility] GLUCOSE 189(H) 70 - 99 mg/dL [facility] CALCIUM 8.8 8.4 - 10.3 mg/dL [facility] EGFR 94 >59 mL/min/1.7 3m2 [facility] Comment:Estimated glomerular filtration rate calculated using the CKD-EPI refit equation. ANION GAP 14 10 - 20 mmol/L [facility] Blood 02/13/2025 6:01 AM EDT 02/13/2025 6:13 AM EDT us Linda Lundberg MD LAB BLOOD BKR ORDERABLES Fi nal Result [facility] [address] [place], [place] [id number] * TTE COMPREHENSIVE (02/12/2025 12:34 PM EDT) Body Surface Area 1.94 m2 Height 161 cm Weight 91 kg Systolic BP 132 mmHg Diastolic BP 78 mmHg Interventricular Septum Thickness 10 6 - 11 mm Left Ventricle Internal Diameter End Diastole 44 37 - 52 mm Left Ventricle Internal Diameter End Systole 28 <35 mm Left Ventricular Outflow Tract Diameter 17.0 mm LVOT VTI REST 213.0 mm Left Ventricular Outflow Tract Velocity 1.2 m/s Left Ventricular Outflow Tract Gradient at Rest 6 mmHg Left Ventricular Posterior Wall Thickness 9 6 - 11 mm Left Ventricle Ea Lateral Wave Speed 7.5 cm/s Left Ventricle Ea Septal Wave Speed 5.0 cm/s Ejection Fraction 65 50 - 75 Percent Aortic Valve Mean Gradient 8 mmHg Aortic Valve Time Velocity Integral 309.0 mm Aortic Valve Peak Velocity 1.9 m/s Aortic Valve Peak Gradient 15 mmHg Aortic Sinus Diameter 26 <40 mm Ascending Aorta Diameter 30 <36 mm Inferior Vena Cava Diameter 16 <21 mm Left Ventricle A Wave Speed 120.0 cm/s Left Ventricle E Wave Speed 80.1 cm/s Mitral Valve Mean Gradient 3 mmHg Mitral Valve Peak Gradient 7 mmHg Mitral Valve Area Continuity Equation 2.00 cm2 Pulmonary Valve Peak Velocity 0.9 m/s Pulmonary Valve Peak Gradient 3 mmHg Right Ventricle Basal Diameter 27 25 - 41 mm Tricuspid Valve Peak Velocity 1.8 m/s Raw LV EF% 60 % MV E/E' Tissue Velocity Lateral 10.68 Relative Wall Thickness 0.41 0.22 - 0.42 Left Ventricle indexed to BSA 71.0 g/m2 MV E/A ratio 0.7 MV E/e' septal 16.02 Left Ventricle E/e' Average 13.4 Aortic Valve Prosthetic Peak Gradient 15 mmHg Aortic Valve Sinus Index by BSA 13 mm/m2 Aorta Sinus Index by Height 1.61 cm/m Aorta Sinus CSA index by Height 3.30 cm2/m Ascending Aorta Index 15 mm/m2 Asc Aorta CSA Index by Height 4.39 cm2/m Mitral Valve Prosthetic Peak Gradient 7 mmHg Mitral Valve Prosthetic Mean Gradient 3 mmHg Right Ventricle to Right Atrium Pressure Gradient 13 mmHg Right Ventricle Peak Systolic Pressure (Assuming RAP 10) 23 mmHg MGB CV ECHO TV RVSP (ASSUMING RAP OF 5) 18 mmHg RVSP (Exclusive of RAP) 13 mmHg Pulmonic Valve Prosthetic Peak Gradient 3 mmHg MGB CV AV DIMENSIONLESS INDEX (PEAK) - STRESS ECHO DOBUT - REST 0.63 Ascending Aorta Index 15 mm Aortic Sinus Index 13 mm Ascending Aorta Diameter 15 mm Aortic Valve Sinus Index 1 13 19 - 27 mm AO ASC DIAM BSA INDEX 15.46 Echo E/Ea 16.02 Left Atrial Volume Index 20 16 - 34 mL/m2 GLS 18.5 % Right Ventricle TAPSE 18 >=17 mm Right Ventricle Pulse Doppler S Wave 13.9 >=9.5 cm/s Left Atrial Volume 38 mL Left Atrial Volume Index by Height 24 mL/m Right Atrium Area 14 cm2 Right Atrium Area index 7 cm2/m2 Aortic Valve Prosthetic Mean Gradient 8 mmHg Right Ventricle Peak Systolic Pressure 16 mmHg Right Atrium Pressure Estimated 3 mmHg Anatomical Region Laterality Modality Heart Ultrasound Narrative 02/12/2025 2:12 PM EDT Images from the original result were not included. Normal LV size and function EF 65 to 70%. Normal PA pressure estimation. Normal diastolic function for age. Normal left atrial size. Grossly normal RV size and function. No significant valvular heart disease is seen. No source of embolism identified. Left Ventricle The left ventricle is normal in size. There is normal wall thickness. Left ventricular systolic function is at the lower limits of normal. The LV ejection fraction is 65% (calculated via biplane measurement). Average global longitudinal strain (GLS) is -18.5%, as measured on [employer] software platform. LV diastolic function appears within normal limits for age. The E/A ratio is 0.7. The e' septal wave velocity is 5.0 cm/s. The e' lateral wave velocity is 7.5 cm/s. The average E/e' ratio is 13.4. Right Ventricle The right ventricle is normal in size. There is normal right ventricular systolic function. TAPSE is 18 mm. RV S' wave is 13.9 cm/s. Left Atrium The left atrium is normal in size. The left atrial volume is 38 mL. The left atrial volume index by BSA is 20 mL/m2. There are normal flow patterns in the pulmonary vein. Right Atrium The right atrium is normal in size. The right atrial area is 14 cm2. The IVC is normal in size with normal inspiratory collapse. Mitral Valve The mitral valve appears normal. There is no mitral stenosis. There is trace mitral regurgitation. Tricuspid Valve The tricuspid valve appears normal. There is no tricuspid stenosis. There is trace tricuspid regurgitation. The RV systolic pressure was calculated at 16 mmHg (using TR peak velocity of 1.8 m/s and assuming an RA pressure of 3 mmHg). Aortic Valve There is no obvious structural abnormality. The morphology of the valve cannot be determined (cannot rule out bicuspid valve). The aortic valve peak velocity is 1.9 m/s. The peak and mean aortic valve gradients are 15 mmHg and 8 mmHg respectively. There is no aortic regurgitation. The visualized portions of the thoracic aorta appear normal in size. The aortic sinus diameter is 26 mm. The ascending aortic diameter is 30 mm. Pulmonic Valve There is no obvious structural abnormality. There is no pulmonic stenosis. Pericardium There is no pericardial effusion. General Findings The image quality was fair (3). Technique(s) used in the evaluation: Color flow Doppler and Spectral Doppler. Consent was obtained from: patient Bubble study could not be performed due to lack of IV access (nurse attempted x4).. The predominant rhythm during the study was sinus. Patient tolerated the procedure well. No complications observed during the procedure. Comparison Findings There are no prior studies for comparison. IAS/IVS The interatrial septum is suboptimally visualized. us Jose Antonio Mobley PA-C CV ECHO ORDERABLES Fabi harish Result * US Lower Extremity Veins Duplex (Right) (02/12/2025 9:10 AM EDT) Anatomical Region Laterality Modality Hip Right, Thigh Right, Knee Right, Leg Right, Ankle Right, Foot Right Ultrasound 02/12/2025 9:18 AM EDT Impressions 02/12/2025 9:35 AM EDT * No evidence of deep or superficial venous thrombosis in the visualized veins of the right lower extremity. Narrative 02/12/2025 9:35 AM EDT US LOWER EXTREMITY VEINS DUPLEX (RIGHT) Referring clinician's provided indication for this examination in Epic: Edema; Right Leg Pain TECHNIQUE: Lower extremity venous ultrasound with color and spectral Doppler. COMPARISON: FINDINGS: Exam Quality: Technically adequate exam demonstrates: Right lower extremity Common femoral vein: Normal compressibility and flow characteristics. Femoral vein: Normal compressibility and flow characteristics. Proximal profunda femoral vein: Normal compressibility. Popliteal vein: Normal compressibility and flow characteristics. Posterior tibial veins: Normal compressibility. Peroneal veins: Normal compressibility. Gastrocnemius: Normal compressibility. Great saphenous vein: Normal compressibility at the saphenofemoral junction. Contralateral common femoral vein: Normal compressibility. Procedure Note Elieser Antunez MBBS - 02/12/2025 US LOWER EXTREMITY VEINS DUPLEX (RIGHT) Referring clinician's provided indication for this examination in [facility]:Edema; Right Leg Pain TECHNIQUE: Lower extremity venous ultrasound with color and spectralDoppler. COMPARISON: FINDINGS: Exam Quality: Technically adequate exam demonstrates: Right lower extremity Common femoral vein: Normal compressibility and flow characteristics. Femoral vein: Normal compressibility and flow characteristics. Proximal profunda femoral vein: Normal compressibility. Popliteal vein: Normal compressibility and flow characteristics. Posterior tibial veins: Normal compressibility. Peroneal veins: Normal compressibility. Gastrocnemius: Normal compressibility. Great saphenous vein: Normal compressibility at the saphenofemoraljunction. Contralateral common femoral vein: Normal compressibility. IMPRESSION: * No evidence of deep or superficial venous thrombosis in the visualizedveins of the right lower extremity. us Jose Antonio ESPINOZA US VASCULAR Final R esult * C-reactive protein, high sensitivity (02/12/2025 5:41 AM EDT) Pathologist [facility] CRP, HIGH SENSITIVITY 5.0 0.0 - 5.0 mg/L [facility] Comment: Interpretation: hsCRP level (mg/L) Relative Risk <1.0 Low 1.0 - 3.0 Average >3.0 High Neonates (0-3 weeks): 0.1 - 4.1 mg/L Children (2 months - 15 years): 0.1 - 2.8 mg/L Blood 02/12/2025 5:41 AM EDT 02/12/2025 6:02 AM EDT Jose Antonio Mobley PA-C LAB BLOOD BKR ORDERABLE S Final Result Performing Organization Address [facility] Co de Phone Number [address] [address] * PTT (02/12/2025 5:41 AM EDT) [facility] APTT 33.6 25.1 - 36.5 sec [facility] Comment:APTT response to unf ractionated heparin concentrations between 0.3 and 0.7 IU/mL is typically 54.0-94.0 seconds in uncomplicated cases. The Anti-Xa assay is the preferred method. Blood 02/12/2025 5:41 AM EDT 02/12/2025 6:02 AM EDT Jose Antonio Mobley PA-C LAB BLOOD BKR ORDERABLE S Final Result Performing Organization Address [facility] Co de Phone Number [address] [address] * (ABNORMAL) Sedimentation rate (ESR) (02/12/2025 5:41 AM EDT) [facility] ESR 35(H) 0 - 30 mm/h [facility] Blood 02/12/2025 5:41 AM EDT 02/12/2025 6:02 AM EDT Jose Antonio Mobley PA-C LAB BLOOD BKR ORDERABLE S Final Result Performing Organization Address [facility] de Phone Number [address] [address] * PT-INR (02/12/2025 5:41 AM EDT) Only the most recent of2 resultswithin the time period is included. PT 11.4 10.2 - 12.9 sec [facility] INR 0.9 0.9 - 1.1 [facility] Comment:Therapeutic range fo r oral Vitamin K antagonists: 2.0-3.5 Blood 02/12/2025 5:41 AM EDT 02/12/2025 6:02 AM EDT Jose Antonio Mobley PA-C LAB BLOOD BKR ORDERABLE S Final Result Performing Organization Address [facility] de Phone Number [address] [address] * (ABNORMAL) CBC (02/12/2025 5:41 AM EDT) WBC 8.12 4.00 - 11.00 K/uL [facility] RBC 3.99(L) 4.00 - 5.20 M/uL [facility] HGB 12.1 12.0 - 16.0 g/dL [facility] HCT 37.5 36.0 - 46.0 % [facility] PLT 348 150 - 450 K/uL [facility] MCV 94.0 80.0 - 100.0 fL [facility] MCH 30.3 27.0 - 31.0 pg [facility] MCHC 32.3 32.0 - 36.0 g/dL [facility] RDW 12.8 11.5 - 14.5 % [facility] MPV 10.8 8.4 - 12.0 fL [facility] NRBC 0.00 0.00 /100 WBCs [facility] ABSOLUTE NRBC 0.00 0.00 K/uL [facility] Blood 02/12/2025 5:41 AM EDT 02/12/2025 6:02 AM EDT Jose Antonio Mobley PA-C LAB BLOOD BKR ORDERABLE S Final Result Performing Organization Address [facility]/ZIP Co de Phone Number [address] [address] * (ABNORMAL) TSH (02/12/2025 5:41 AM EDT) TSH 0.11(L) 0.27 - 4.20 uIU/mL [facility] Blood 02/12/2025 5:41 AM EDT 02/12/2025 6:02 AM EDT Jose Antonio Mobley PA-C LAB BLOOD BKR ORDERABLE S Final Result Performing Organization Address [facility] Co de Phone Number [address] [address] * (ABNORMAL) Hemoglobin A1c (02/12/2025 5:41 AM EDT) HEMOGLOBIN A1C 6.8(H) 4.3 - 5.8 % [facility] Blood 02/12/2025 5:41 AM EDT 02/12/2025 6:02 AM EDT Jose Antonio Mobley PA-C LAB BLOOD BKR ORDERABLE S Final Result Performing Organization Address [facility] Co de Phone Number [address] [address] * (ABNORMAL) Lipid panel (02/12/2025 5:41 AM EDT) HDL 66 mg/dL [facility] Comment: Interpretation <40 mg/dL: Low HDL cholesterol (major risk factor for CHD) Greater than or equal to 60 mg/dL: High HDL cholesterol ( negative risk factor for CHD) HDL - cholesterol is affected by a number of factors, e.g. smoking, excerise, hormones, sex and age. CHOLESTEROL 180 0 - 240 mg/dL [facility] TRIGLYCERIDES 89 30 - 160 mg/dL [facility] LDL 96 50 - 129 mg/dL [facility] Comment: LDL levels in terms of risk for coronary heart disease: <100 mg/dL: Optimal 100-129 mg/dL: Near or above optimal 130-159 mg/dL: Borderline high 160-189 mg/dL: High >190 mg/dL: Very High CARDIAC RISK RATIO 2.7(L) 3.3 - 4.4 C [facility] Blood 02/12/2025 5:41 AM EDT 02/12/2025 6:02 AM EDT Jose Antonio Mobley PA-C LAB BLOOD BKR ORDERABLE S Final Result Performing Organization Address [facility] Co de Phone Number [address] [address] * (ABNORMAL) D-dimer (02/11/2025 8:22 PM EDT) D-DIMER 631(H) <500 ng/mL FEU [facility] Comment:In patients with low to moderate pre-test probability scores for VTE (PE or DVT), a D-Dimer cut-off less than 500 ng/mL (FEU) has a negative predictive value (NPV) of 97 to 100%. Blood 02/11/2025 8:22 PM EDT 02/11/2025 8:27 PM EDT us Jose Antonio Mobley PA-C LAB BLOOD BKR ORDERABLE S Final Result Performing Organization Address [facility]/ZIP Co de Phone Number [address] [address] * Lab Add On: BNP (02/11/2025 8:22 PM EDT) TEST REQUESTED BNP [facility] Comments (Chemistry) Add on order being processed. Floor or provider will be notified if testing cannot be performed [facility] 02/11/2025 8:22 PM EDT 02/11/2025 8:27 PM EDT us Jose Antonio Mobley PA-C LAB BLOOD ORDERABLES Fi nal Result [facility] [address] [place] [address] * MRI BRAIN WITH AND WITHOUT CONTRAST (02/11/2025 8:00 PM EDT) Anatomical Region Laterality Modality Head Magnetic Resonan ce 02/11/2025 8:57 PM EDT Impressions 02/11/2025 9:40 PM EDT No acute infarct, intracranial hemorrhage, mass lesion, abnormal intracranial enhancement, or hydrocephalus. ATTESTATION: I, Dr. Sandeep Bajwa as teaching physician, have reviewed the images for this case and if necessary edited the report originally created by Masoud Hicks. Narrative 02/11/2025 9:40 PM EDT MRI BRAIN WITH AND WITHOUT CONTRAST Referring clinician's provided indication for this examination in [facility]: * Neuro deficit, acute, stroke suspected TECHNIQUE: MRI BRAIN WITH AND WITHOUT CONTRAST COMPARISON: CT ANGIO HEAD WITH AND WITHOUT CONTRAST, CT ANGIO NECK WITH CO.. 14:11:00.000 FINDINGS: No evidence of acute infarct, mass lesion, or hemorrhage. No abnormal intracranial enhancement. Generalized parenchymal volume loss with prominence of ventricles, sulci and cisterns. Scattered punctate an patchy T2/FLAIR periventricular and deep white matter hyperintensities are nonspecific and may be seen in setting of chronic microvascular disease. No evidence of midline shift or hydrocephalus. Partially empty sella. Expected arterial flow signal is observed at the skull base. The globes and orbits are symmetric. The mastoid air cells and middle ear cavities are clear. Mild paranasal sinus mucosal thickening. Procedure Note Sandeep Bajwa MD - 02/11/2025 MRI BRAIN WITH AND WITHOUT CONTRAST Referring clinician's provided indication for this examination in [facility]: *Neuro deficit, acute, stroke suspected TECHNIQUE: MRI BRAIN WITH AND WITHOUT CONTRAST COMPARISON: CT ANGIO HEAD WITH AND WITHOUT CONTRAST, CT ANGIO NECK WITHCO.. 14:11:00.000 FINDINGS: No evidence of acute infarct, mass lesion, or hemorrhage. No abnormalintracranial enhancement. Generalized parenchymal volume loss with prominence of ventricles, sulciand cisterns. Scattered punctate an patchy T2/FLAIR periventricular anddeep white matter hyperintensities are nonspecific and may be seen insetting of chronic microvascular disease. No evidence of midline shift or hydrocephalus. Partially empty sella. Expected arterial flow signal is observed at the skull base. The globesand orbits are symmetric. The mastoid air cells and middle ear cavitiesare clear. Mild paranasal sinus mucosal thickening. IMPRESSION: No acute infarct, intracranial hemorrhage, mass lesion, abnormalintracranial enhancement, or hydrocephalus. ATTESTATION: I, Dr. Sandeep Bajwa as teaching physician, have reviewedthe images for this case and if necessary edited the report originallycreated by Masoud Hicks. Jose Antonio Mobley PA-C IMG MR HEAD/NECK Final Result * XR Chest Portable (02/11/2025 6:50 PM EDT) Anatomical Region Laterality Modality Chest Computed Radiogr aphy 02/11/2025 7:01 PM EDT Impressions 02/11/2025 7:06 PM EDT * Low lung volumes without evidence of pneumonia or pulmonary edema. * Asymmetric widening of the right acromioclavicular joint, may be slightly increased as compared to prior exam, may be degenerative or related to sequela of prior injury. Narrative 02/11/2025 7:06 PM EDT XR CHEST PORTABLE Referring clinician's provided indication for this examination in [facility]: Dyspnea (Shortness of Breath) COMPARISON: XR CHEST PA AND LATERAL 2 VIEWS FINDINGS: Devices/Tubes/Lines: None. Lungs: Low lung volumes without consolidation or pulmonary edema. Pleura: No pleural effusion or pneumothorax. Heart/Mediastinum: Cardiac silhouette and mediastinal contours are within normal limits. Bones/Soft Tissues: No acute osseous finding. Asymmetric widening of the right acromioclavicular joint, may be slightly increased as compared to prior exam Partially visualized upper abdomen: Unremarkable. Procedure Note Zuly Merida MD - 02/11/2025 XR CHEST PORTABLE Referring clinician's provided indication for this examination in [facility]:Dyspnea (Shortness of Breath) COMPARISON: XR CHEST PA AND LATERAL 2 VIEWS FINDINGS: Devices/Tubes/Lines: None. Lungs: Low lung volumes without consolidation or pulmonary edema. Pleura: No pleural effusion or pneumothorax. Heart/Mediastinum: Cardiac silhouette and mediastinal contours are withinnormal limits. Bones/Soft Tissues: No acute osseous finding. Asymmetric widening of theright acromioclavicular joint, may be slightly increased as compared toprior exam Partially visualized upper abdomen: Unremarkable. IMPRESSION: * Low lung volumes without evidence of pneumonia or pulmonary edema. * Asymmetric widening of the right acromioclavicular joint, may beslightly increased as compared to prior exam, may be degenerative orrelated to sequela of prior injury. Jose Antonio Mobley PA-C IMG XR CHEST Final R esult * CT ANGIO HEAD WITH AND WITHOUT CONTRAST, CT ANGIO NECK WITH CONTRAST (02/11/2025 2:21 PM EDT) Anatomical Region Laterality Modality Neck Computed Tomogra phy 02/11/2025 3:35 PM EDT Impressions 02/11/2025 3:49 PM EDT 1. Focal asymmetric hypoattenuation in the right erickson radiata, could represent an age-indeterminate infarct. Further evaluation with MRI brain is recommended. 2. No acute intracranial hemorrhage. 3. No large vessel occlusion, high-grade stenosis, aneurysm or dissection in the head or neck. 4. Multinodular goiter with asymmetric enlargement of the left thyroid lobe. Further evaluation with dedicated thyroid ultrasound on a nonemergent basis would be of value. Narrative 02/11/2025 3:[address] ANGIO HEAD WITH AND WITHOUT CONTRAST, CT ANGIO NECK WITH CONTRAST Referring clinician's provided indication for this examination in Epic: * Dizziness, persistent/recurrent, cardiac or vascular cause suspected; Persistent ISSA 3 days, right leg weakness may be worse than baseline, recent falls with no reported head strike TECHNIQUE: * CTA of the head was performed before and after administration of intravenous contrast using tailored dose modulation techniques. Images were reconstructed in the axial, coronal, and sagittal planes, including angiographic image post-processing. 3D angiographic images with reformatting and post-processing reconstructions were performed and interpreted. * CTA of the neck was performed after administration of intravenous contrast using tailored dose modulation techniques. Images were reconstructed in the axial, coronal, and sagittal planes. 3D angiographic images with reformatting and post- processing reconstructions were performed and interpreted. COMPARISON: None available. FINDINGS: CT HEAD: Brain Parenchyma: There is focal asymmetric hypoattenuation in the right erickson radiata (series 8, image 182), could represent an age-indeterminate infarct. There is no acute major vascular territory infarcts. No enhancing abnormality. Hypodensities in the periventricular white matter, likely a manifestation of chronic small vessel disease. Ventricular System and Extra-Axial Spaces: The ventricles and sulci are prominent. No extra-axial fluid collections. Basilar cisterns are patent. No hydrocephalus. Osseous and Extracranial Structures: No calvarial lesion identified. The paranasal sinuses and mastoid air cells are clear. The orbits are unremarkable. CTA HEAD: No aneurysm or arteriovenous malformation. Intracranial internal carotid arteries: No occlusion or high grade stenosis. Anterior cerebral arteries: No occlusion or high grade stenosis. Hypoplastic right anterior cerebral artery A1 segment. Middle cerebral arteries: No occlusion or high grade stenosis. Vertebrobasilar system: No occlusion or high grade stenosis. Posterior cerebral arteries: No occlusion or high grade stenosis. The posterior communicating arteries are unremarkable. Venous: No dural sinus thrombosis. CTA NECK: Aortic Arch and Branch Vessel Origins: Shared common origin of the right brachiocephalic trunk and left common carotid artery. No high grade stenosis. Right Carotid Artery: No occlusion, high grade stenosis or dissection. Mild atherosclerotic calcifications are seen at the right carotid bifurcation. Left Carotid Artery: No occlusion, high grade stenosis or dissection. Mild atherosclerotic calcifications are seen at the left carotid bifurcation. Right Vertebral Artery: No occlusion, high grade stenosis or dissection. Left Vertebral Artery: No occlusion, high grade stenosis or dissection. Venous structures: The jugular veins enhance normally. NON-VASCULAR FINDINGS: Lungs and Airways: No acute abnormality. Soft tissues: Multinodular goiter is seen with asymmetric enlargement of the left thyroid lobe which has substernal extension. Multiple thyroid nodules are identified in bilateral thyroid lobes. There is mild rightward deviation of the trachea due to enlarged left thyroid lobe. The visualized aerodigestive tract is otherwise unremarkable. There is no suspicious lymphadenopathy in the neck. Bones: No significant abnormality. Procedure Note Amber Wong MD - 02/11/2025 CT ANGIO HEAD WITH AND WITHOUT CONTRAST, CT ANGIO NECK WITH CONTRAST Referring clinician's provided indication for this examination in Epic: *Dizziness, persistent/recurrent, cardiac or vascular cause suspected;Persistent ISSA 3 days, right leg weakness may be worse than baseline,recent falls with no reported head strike TECHNIQUE: * CTA of the head was performed before and after administration ofintravenous contrast using tailored dose modulation techniques. Imageswere reconstructed in the axial, coronal, and sagittal planes, includingangiographic image post- processing. 3D angiographic images withreformatting and post-processing reconstructions were performed andinterpreted. * CTA of the neck was performed after administration of intravenouscontrast using tailored dose modulation techniques. Images werereconstructed in the axial, coronal, and sagittal planes. 3D angiographicimages with reformatting and post-processing reconstructions wereperformed and interpreted. COMPARISON: None available. FINDINGS: CT HEAD: Brain Parenchyma: There is focal asymmetric hypoattenuation in the rightcorona radiata (series 8, image 182), could represent an age-indeterminateinfarct. There is no acute major vascular territory infarcts. No enhancingabnormality. Hypodensities in the periventricular white matter, likely amanifestation of chronic small vessel disease. Ventricular System and Extra-Axial Spaces: The ventricles and sulci areprominent. No extra-axial fluid collections. Basilar cisterns are patent.No hydrocephalus. Osseous and Extracranial Structures: No calvarial lesion identified. Theparanasal sinuses and mastoid air cells are clear. The orbits areunremarkable. CTA HEAD: No aneurysm or arteriovenous malformation. Intracranial internal carotid arteries: No occlusion or high gradestenosis. Anterior cerebral arteries: No occlusion or high grade stenosis.Hypoplastic right anterior cerebral artery A1 segment. Middle cerebral arteries: No occlusion or high grade stenosis. Vertebrobasilar system: No occlusion or high grade stenosis. Posterior cerebral arteries: No occlusion or high grade stenosis. Theposterior communicating arteries are unremarkable. Venous: No dural sinus thrombosis. CTA NECK: Aortic Arch and Branch Vessel Origins: Shared common origin of the rightbrachiocephalic trunk and left common carotid artery. No high gradestenosis. Right Carotid Artery: No occlusion, high grade stenosis or dissection.Mild atherosclerotic calcifications are seen at the right carotidbifurcation. Left Carotid Artery: No occlusion, high grade stenosis or dissection. Mildatherosclerotic calcifications are seen at the left carotid bifurcation. Right Vertebral Artery: No occlusion, high grade stenosis or dissection. Left Vertebral Artery: No occlusion, high grade stenosis or dissection. Venous structures: The jugular veins enhance normally. NON-VASCULAR FINDINGS: Lungs and Airways: No acute abnormality. Soft tissues: Multinodular goiter is seen with asymmetric enlargement ofthe left thyroid lobe which has substernal extension. Multiple thyroidnodules are identified in bilateral thyroid lobes. There is mild rightwarddeviation of the trachea due to enlarged left thyroid lobe. The visualizedaerodigestive tract is otherwise unremarkable. There is no suspiciouslymphadenopathy in the neck. Bones: No significant abnormality. IMPRESSION: 1. Focal asymmetric hypoattenuation in the right erickson radiata, couldrepresent an age-indeterminate infarct. Further evaluation with MRI brainis recommended. 2. No acute intracranial hemorrhage. 3. No large vessel occlusion, high-grade stenosis, aneurysm or dissectionin the head or neck. 4. Multinodular goiter with asymmetric enlargement of the left thyroidlobe. Further evaluation with dedicated thyroid ultrasound on anonemergent basis would be of value. us Santo Conway MD IMG CT HEAD/NECK Final Result * ECG 12-LEAD (02/11/2025 12:36 PM EDT) Ventricular Rate EKG/MIN 99 BPM [facility] Atrial Rate 99 BPM [facility] LA Interval 138 ms [facility] QRS Duration 80 ms [facility] QT Interval 336 ms [facility] QTC Interval 431 ms [facility] P [place] 37 degrees [facility] R Wave [place] 46 degrees [facility] T Wave [place] 31 degrees [facility] 02/11/2025 12:3 6 PM EDT 02/12/2025 10:19 AM EDT Narrative [facility] - 02/12/2025 10:19 AM EDT Normal sinus rhythm Possible Left atrial enlargement Borderline ECG When compared with ECG of 18-Mar-2024 22:04, No significant change was found Confirmed by Korey Casas ([id number]) on 02/12/2025 10:19:21 AM Santo Conway MD ECG ORDERABLES Final Result Performing Organization Address [facility] Co de Phone Number [email or web address] * LFTs (hepatic panel) (02/11/2025 12:12 PM EDT) ALKALINE PHOSPHATASE 60 39 - 117 U/L [facility] TOTAL BILIRUBIN 0.3 0.0 - 1.2 mg/dL [facility] DIRECT BILIRUBIN 0.1 0.0 - 0.2 mg/dL [facility] Bilirubin (Indirect) NOT CALCULATED 0 - 1.5 mg/dL [facility] AST 19 0 - 37 U/L [facility] ALT 10 0 - 40 U/L [facility] TOTAL PROTEIN 6.6 6.5 - 8.0 g/dL [facility] ALBUMIN 3.9 3.9 - 4.8 g/dL [facility] GLOBULIN 2.7 1 - 4.8 g/dL [facility] A/G Ratio 1.44 1.00 - 4.80 RATIO [facility] Blood 02/11/2025 12:1 2 PM EDT 02/11/2025 12:17 PM EDT Santo Conway MD LAB BLOOD BKR ORDERABLES Final Result Performing Organization Address City/[facility]/ZIP Co de Phone Number [facility] [address] [place] [address] * (ABNORMAL) NT-proBNP (02/11/2025 12:12 PM EDT) NT-PROBNP 190(H) 0 - 125 pg/mL [facility] 02/11/2025 12:1 2 PM EDT 02/11/2025 12:17 PM EDT Santo Conway MD LAB BLOOD BKR ORDERABLES Final Result Performing Organization Address City/[facility]/ZIP Co de Phone Number [address] [address] * (ABNORMAL) Venous blood gas (02/11/2025 12:12 PM EDT) pH, Venous 7.37 7.31 - 7.41 [facility] PCO2, Venous 48.30 41.00 - 51.00 mmHg [facility] PO2, Venous 63.50(H) 35.00 - 40.00 mmHg [facility] HCO3, Venous 27 23 - 28 mmol/L [facility] BASE EXCESS VENOUS 1.1 0.0 - 3.0 mmol/L [facility] SO2, VENOUS 92.50(H) 60.00 - 80.00 % [facility] FO2HB, VENOUS 91.00(H) 71.00 - 74.00 % [facility] Carboxy Hgb 1.30 0 - 1.50 % [facility] MetHgb % 0.30 0 - 1.50 % [facility] Blood 02/11/2025 12:1 2 PM EDT 02/11/2025 12:20 PM EDT Santo Conway MD LAB BLOOD BKR ORDERABLES Final Result [address] [address] from Last 3 Months Insurance MEDICARE PART A & B Member Subscriber Plan / Payer (Ef fective 2016-Present) Name:Brandy Wise Member ID:[id number] Relation to Subscriber:Self Name:Brandy Wise Subscriber ID:[id number] Payer ID:[id number] Group ID:Not on file Type:Medicare Address: [facility] [employer] [facility] [address] [place], [place] [id number] [place] [place] [address] MEDICARE HMO BLUE REPLACEMENT MEDICARE PART A & B [facility] MEDICARE HMO BLUE REPLACEMENT MEDICARE PART A & B [facility] MEDICARE HMO BLUE REPLACEMENT MEDICARE PART A & B [facility] MEDICARE HMO BLUE REPLACEMENT MEDICARE PART A & B Member Subscriber Plan / Payer (Ef fective 2016-Present) Name:Brandy Wise Member ID:[id number] Relation to Subscriber:Self Name:Brandy Wise Subscriber ID:[id number] Payer ID:[id number] Group ID:Not on file Type:Medicare Address: [employer] [address] [place] [address] [place] [address] MEDICARE HMO BLUE REPLACEMENT MEDICARE PART A & B [facility] MEDICARE HMO BLUE REPLACEMENT Advance Directives For more information, please contact: [phone] (9AM - 5PM [facility], Sunday-Sunday) * Full Code (Latest Code Status on File) Date Activated Date Inactivated Comments 02/11/2025 6:41 PM Question Answer Comments Code Status Confirmed With: Patient Code Status Communicated To: Inpatient Attending Care Teams Iap Displays Analyst Relationship Specialty Start Date End Date Pascale Murray PA [address] [place] [address] [place] [address] PCP - General Physician Psychiatric Technician Assistant 02/12/25 Additional Source Comments The information contained in this document represents components of the legal health record. It is not the complete legal health record.[facility]
--- OUTSIDE RECORDS SUMMARY | 2025-03-06 15:22 | XMS_ITS | Data Portability ---
Author Organization [employer] [facility] [place] [facility] Address [address] [place] [phone] Care Team Providers Care Director Television News Name Role Phone HIM HOLLY OTHER Assessment Encounter Date Assessment Date Assessment LastModified by Organization Details LastModified Time 03/03/2024 03/03/2024 I provided real -time medical direction via phone for this encounter, and was available for additional phone based assistance as needed. I have reviewed and agree with the Assessment and Plan as documented by the Rental Car Ferry Driver. We discussed the diagnostic uncertainty of home visits and the risk associated with this. The patient given the opportunity to ask questions. Advised if develops new or worsening CP/severe SOB/turning blue/uncontrolle d n/v/d/ AMS/ syncope/worsenin g calf pain or swelling to the leg/ hi fever to call 911-she verbalized understanding of instructions to the medic [email or web address] Not available 03/03/2024 20:32:02 Plan of Treatment Reminders Order Date Submit Date Provider Last Modified By Organization Details Last Modified Time Details Appointments None recorded. Lab BMP, serum or plasma 2023 024 [email or web address], [phone] 20:32:17 Referral None recorded. Procedures None recorded. Surgeries None recorded. Imaging electrocard iogram 2023 024 [email or web address], [phone] 20:32:34 Medication Orders None recorded. Patient TargetsNo targets recorded. Patient InstructionsNo instructions recorded. Reason for Referral None Reported. Results Created Date Observation Date Name Description Value Unit Range Abnormal Flag Note LastModifiedBy Organization Detail LastModifiedTime 03/03/2003/03/2024 vernon cui am No observ ation record ed. [employer] [address] [place] [address], [place], [phone] 03/03/2024 20:32:30 Result Notes None recorded. Medical Equipment None Reported. Allergies Allergen ID Allergen Name Allergen Category Reaction Reaction Severity Criticality Documentation Date Start Date Code Code System Note Provider Name and Address Organization Details Recorded Time 61713 Celebrex medicatio n Not available Not available Not available 03/03/2024 45772 7 RxNorm Not Available [facility] - production 4 11:11:35 83229 fluvoxami ne maleate medicatio n Not available Not available Not available 03/03/202485446 3 RxNorm Not Available [facility] - production 4 11:11:35 Zoloft medicatio n Not available Not available Not available 03/03/2024 75253 RxNorm Kathy Andrew MD [address] [place] [address],[address], [place], [address] , [employer] 15:50:43 61350 Tylenol medicatio n Not available Not available Not available 03/03/202453701 3 RxNorm Brandon nt is not truly aller gic to Tylen ol altho ugh it is on her list. She had unint entio christian overd osed on Tylen ol and it cause d liver damag e so she was told to avoid it in the futur e Kathy Andrew MD [address] [place] [address],[address], [place], [phone] , [employer] 15:51:25 Medications Name Sig Start Date Stop [...] blood by Pulse oximetry Body weight Systolic And Diastolic Provider Name and Address Organization Details Last Updated DateTime 4 160.02 cm 115 /min 16 /min 98.7 [degF] 96 % 96 % 43862.4 g 149/87 mm[Hg] Not Available [facility] 4 11:55:25 Date Recorded Body weight Body temperature Body height Heart rate Oxygen saturation Oxygen saturation in Arterial blood by Pulse oximetry Respiratory rate Systolic And Diastolic Provider Name and Address Organization Details Last Updated DateTime 4 89653.4 g 98.4 [degF] 160.02 cm 118 /min 98 % 98 % 18 /min 137/78 mm[Hg] Not Available [employer] 13:03:47 Social History None recorded. Functional Status None recorded. Mental Status None recorded. Family History Nothing Reported. Medical History No medical history recorded. Gynecological HistoryNo gynecological history recorded. Obstetrics History GPAL:G 0 P 0 0 0 0 Past Encounters Encounter ID Performer Location Encounter Start Date Encounter Closed Date Diagnosis/Indication Diagnosis SNOMED-CT Code Diagnosis ICD10 Code Diagnosis IMO Codes Diagnosis Note [id number] Kathy Andrew MD [facility] - [facility] [address] [place] [phone] 03/03/2024 11:55:19 03/03/2024 23:43:48 Chest discomfort 341896573 R07.89 I have no records showing a [...] mix it with significan t ibuprofen use. [id number] Agata Steel MD Main - [facility] [address] [place] [phone] 03/18/2024 13:03:45 03/19/2024 10:11:15 Vertigo [id number] R42 68 year old female with multiple [...] assessment and plan as documented by the electric dolly operator. I provided real-time medical direction for this [...] Recorded Advance Directives Directive None Recorded Payers Insurance Date Sequence Insurance Name Policy Number Policy [place] Covered Member ID [place] Member ID Guarantor Name 03/18/2024 1 [facility] - DOS ON OR AFTER 2022 - MEDICARE [place]VANTAGE [place] (MEDIC[place] REPLACEMENT/ADV ANTAGE - PPO) Brandy Wise [id number] Brandy Wise Notes Date Note Type Note Provider Name and Address Organization Details Recorded Time 03/03/2024 text/html ROS as noted in the HPI CRC Nurse Triage Notes (Pilar Briones): Chief Complaints: Chest pain, Leg pain/swelling, Heart rate problems PMH: Multiple Sclerosis, Hypertension Comments: Mgmt Analyst verified the member's name//address and phone number. Member is a 68 yr old female , a/o3 , legally blind The patient is calling because her PCP appointment was canceled. She now does not have a PCP as they are not in the network, but she is working on ULUR[facility] in March. She has a Migraine that [...] s/s and seek emergency treatment if needed Rental Car Ferry Driver Organization Information for Monroe Neal Legal Name: [employer]. Address: [address] [place] [address], Fireworks Assembly Supervisor: Migue Reddy MD CLIA No.: [id number] Rental Car Ferry Driver POC Test Results from Monroe Neal EKG [...] ..................... ..................... ..................... ..................... ..................... ..................... ............... Rental Car Ferry Driver Note From Ángel Monroe: [facility] visit for female pt. Pt presents [...] on palpation of mid calf. Consulted with [facility] Dr. Andrew who ordered EKG and BMP. Blood drawn and BMP results sent to [facility] along with EKG tracing. Dr. Andrew noted t wave inversion and q wave in lead III. Pt explained limitations of workup at home for her complaints and expressed that pt is a good candidate for an atypical presentation of ACS given her comorbidities. Reviewed red flags for ED. Pt education provided. ..................... ..................... ..................... ..................... ..................... ..................... ............... [facility] Consulted: Kathy Andrew ..................... [...] but none since Kathy Andrew MD [address] [facility], [place], [address], [employer] 03/03/2024 20:33:09 03/18/2024 text/html CRC Nurse Triage [...] she does not want to miss her fuse maker appt tomorrow. RED flags discussed, and will seek ED if recommended by medic and [facility]. ..................... ..................... ..................... ..................... ..................... ..................... ............... Rental Car Ferry Driver Note From Jhonatan Garcia: [facility] makes pt contact. She answers the door and lets SANDIP inside her small apartment. She is ambulating [...] head on her arm. She recounts for [facility] the events leading up to her [...] medications. She consents to evaluation and treatment today.[facility] gathers vital signs and pt is physically assessed. Nothing remarkable is noted upon physical assessment. Eye exam is confounded by pt's inability to keep her eyes open comfortable for long. No tinnitus or ISSA are endorsed at this time. [facility] contacts [facility] and discusses the above assessment findings. [facility] makes several suggestions for the pt to try including taking 25mg-50mg of meclizine, taking one of her prescribed clonazepam, and progressing to IV benadryl if pt feels she needs it. [facility] discusses all options w/ the pt up to and including transport to the ED. Pt expresses a desire to try the increased dose of meclizine. [facility] advises pt of s/s to be aware of up to and including cp, sob, severe issa, n/v/d, or lack of improvement or a worsening of her current s/s. She is instructed to call back or call 911 and go to the nearest ED. Pt says she understands and thanks [facility] for coming.[facility] is clear. Report completed by ELIAS Garcia [id number]. ..................... ..................... ..................... ..................... ..................... ..................... ............... [facility] Consulted: Agata Steel ..................... ..................... ..................... ..................... ..................... ..................... ............... Disposition: Fulfilled Agata Steel MD [address] [facility],[address], [place], [address], [employer] 03/18/2024 19:27:25 OBGyn Episode No OBEpisode recorded.
--- OUTSIDE RECORDS SUMMARY | 2025-03-06 15:22 | XMS_ITS | Encounter Summary ---
Author Organization [facility] Address [address] [place] [address] Phone Care Team Providers Care Fibre Composite Technician Name Role Phone Pcp, Unknown Primary Care Provider Pascale Gilman Primary Care Provide r Encounter Details Date Type Department Care Team ([facility] st Contact Info) Description 02/11/2025 Procedure [facility] [address] [place] [address] Social History Tobacco Use Types Packs/Day Years [...] 8:54 PM EDT Deidra Araiza RN * [place] Suicide Severity Rating Scale (Screener/Recent Self-Report) Question Answer Date of Assessment Author 1. Wish to be (Past 1 Month) No 025 8:54 PM EDT Deidra Araiza, PAWAN 2. Non-Specific Active Suici keyla Thoughts (Past 1 Month) No 02/11/2025 8:54 PM EDT Tania Araiza, RN 6. Suicidal Behavior (Lifetime) No 5 8:54 PM EDT Deidra Araiza, PAWAN documented as of this encounter Plan of Treatment Upcoming Encounters Date Type Department Care Team (Late st Contact Info) Description 03/10/2025 12:45 AM EST Appointment [facility] [address] [place] [address] Eunice Ching, PT [address] [place] [address] [email or web address] 03/10/2025 2:30 AM EST Appointment [facility] [address] [place] [phone] Susan Brownlee RN [address] [place] [address] 03/12/2025 Appointment [facility] [address] [place] [phone] Eunice Ching, PT [address] [place] [address] [email or web address] 03/12/2025 10:00 AM EST Appointment [facility] [address] [place] [phone] Elaine Marquez, OT [address] [place] [address] [email or web address] 03/13/2025 10:00 AM EST Appointment [facility] [address] [place] [phone] Elaine Marquez, OT [address] [place] [address] [email or web address] 03/16/2025 2:30 AM EST Appointment [facility] [address] [place] [phone] Susan Brownlee RN [address] [place] [address] 03/17/2025 Appointment [facility] [address] [place] [address] Elaine Marquez, OT [address] [place] [address] 03/19/2025 Appointment [facility] [address] [place] [address] Elaine Marquez, OT [address] [place] [address] 03/23/2025 3:00 AM EST Appointment [facility] [address] [place] [phone] Susan Brownlee RN [address] [place] [address] 03/24/2025 Appointment [facility] [address] [place] [address] Elaine Marquez, OT [address] [place] [address] 03/26/2025 Appointment [facility] [address] [place] [address] Elaine Marquez, OT [address] [place] [address] 03/30/2025 1:00 AM EST Appointment [facility] [address] [place] [address] Susan Brownlee RN [address] [place] [address] 03/31/2025 Appointment [facility] [address] [place] [address] Elaine Marquez, OT [address] [place] [address] 04/02/2025 Appointment [facility] [address] [place], [place] [phone] Elaine Marquez, GIOVANA [address] [place] [address] 04/06/2025 1:30 AM EST Appointment [facility] [address] [place], [place] [phone] Susan Brownlee RN [address] [place] [address] 04/13/2025 2:00 AM EST Appointment [facility] [address] [place], [place] [phone] Susan Brownlee RN [address] [place] [address] 10/08/2025 9:30 AM EDT Office Visit [facility] Neurology [address] [place] [address] Michele London MD [address] [facility]nd [place] [address] [email or web address] documented as of this encounter Visit Diagnoses Not on filedocumented in this encounter Care Teams Fibre Composite Technician Relationship Specialty Start Date End Date Pcp, Unknown PCP - General 03/18/24 02/11/25 Pascale Murray PA [address] [place] [address] [place] [address] PCP - General Physician Director Life Insurance 02/12/25 documented as of this encounter Additional Source Comments The information contained in this document represents components of the legal health record. It is not the complete legal health record.[facility]
== END 2025-03-06 14:21 | disposition home or self-care (01) ==
LOC: HO.HMCH 13:14
PROVIDERS: Visit Provider Nurse Practitioner Family
DX: R51.9 Headache, unspecified (principal)

== ENCOUNTER 2025-03-17 12:10 | Outpatient (REF) | payer BC, SELFPAY ==
--- NOTE | ~2025-03-17 | MM_ITS ---
EXAMINATION: DXA BONE DENSITY AXIAL HISTORY: Z78.0 - Asymptomatic menopausal state TECHNIQUE: [employer] Dual energy absorptiometry (DEXA) of the lumbar spine, total left hip, and femoral neck was performed. COMPARISON: Comparison is made with the prior examination dated June 2020. FINDINGS: The bone mineral density of the lumbar spine is 1.279 g/cm2, corresponding to a T-score of 0.8, and a Z-score of 1.6. This is indicative of normal bone mineral density. This represents a BMD change of 2.4% compared to the prior exam. This is not statistically significant. The bone mineral density of the left total hip is 1.117 g/cm2, corresponding to a T-score of 0.9, and a Z-score of 1.6. This is indicative of normal bone mineral density. This represents a BMD change of -3.3% compared to the prior exam. This is not statistically significant. The bone mineral density of the left femoral neck is 1.003 g/cm2, corresponding to a T-score of -0.3, and a Z-score of 0.8. This is indicative of normal bone mineral density. This represents a BMD change of -3.6% compared to the prior exam. This is not statistically significant. FRACTURE RISK: The FRAX index suggests a ten year probability of major osteoporotic fracture of 6.8%, and of hip fracture 0.3%. MM/XR DEXA axial skeleton IMPRESSION: Based on bone mineral density, and according to World Health Organization (WHO) criteria, the diagnosis is consistent with normal bone mineral density based on lowest T score of -0.3 in the left femoral neck. Treatment Recommendations: NOF guidelines recommend consideration for treatment in postmenopausal women and men age 50 and older presenting with the following: -A hip or vertebral (clinical or morphometric) fracture. -T-score less than or equal to -2.5 at the femoral neck or spine after appropriate evaluation to exclude secondary causes. -Low bone mass at the hip or spine and a 10-year fracture probability by FRAX of greater than or equal to 3% for hip fracture or greater than or equal to 20% for major osteoporotic fracture based on the [place] adapted WHO algorithm. Other Recommendations: All treatment decisions require clinical judgment and consideration of individual patient factors, including patient preferences, comorbidities, previous drug use, risk factors not captured in the FRAX model (e.g. frailty, falls, vitamin D deficiency, increased bone turnover, interval significant decline in bone density) and possible under or overestimation of fracture risk by FRAX. Additional medical evaluation for secondary cause of low bone mineral density may be appropriate. FUTURE SCAN RECOMMENDATION: People with diagnosed cases of osteoporosis or at high risk for fracture should have regular bone mineral density tests. For patients eligible for Medicare, routine testing is allowed once every 2 years. The testing frequency can be increased to one year for patients who have rapidly progressing disease, those who are receiving or discontinuing medical therapy to restore bone mass, or have additional risk factors. Statistically, 68% of repeat scans fall within 1 SD (+/- 0.010 g/cm2 for AP spine L1-L4) and 1 SD (+/- 0.012 g/cm2 for femur total) FRAX is a trademark of the [employer] Metabolic Bone Disease, a World Health Organization (WHO) Collaborating Center. Electronically signed by: Elizabeth Schafer MD 03/17/2025 02:18 PM [facility]
--- NOTE | ~2025-03-17 | MM_ITS ---
EXAMINATION: MM SCREENING DIGITAL BREAST TOMOSYNTHESIS, BILATERAL CLINICAL INFORMATION: Screening. Asymptomatic. COMPARISON: Mammography: Comparison is made with available priors TECHNIQUE: Digital breast mammography with tomosynthesis is performed in both the craniocaudal and mediolateral oblique views along with computer-aided detection (CAD). FINDINGS: There are scattered areas of fibroglandular density. There are no significant masses, abnormal calcifications, or other abnormalities. MM/MM tomosynthesis screening BI IMPRESSION: No mammographic evidence of malignancy. ASSESSMENT: BI-RADS Category 1: Negative RECOMMENDATION: Routine annual mammography screening. 1 year F/U This examination should not preclude the clinical evaluation of a suspicious palpable abnormality. This patient's information was entered into a reminder system with a target due date for their next mammogram. Electronically signed by: Angi García DO 03/20/2025 04:28 PM [facility]
[2025-03-17 13:54] LABS: MANUAL DIFF FLAG NO
[2025-03-17 14:29] LABS: Hematocrit 43.2 % (37.0-47.0); Hemoglobin 13.7 g/dl (12.0-16.0); Imm Gran Abs Auto 0.03 X10*3/uL (0.00-0.03); Imm Gran Pct Auto 0.3 % (0.0-0.4); Lymphocytes Absolute Auto 1.4 X10*3/uL (1.2-4.9); Mean Corpuscular HGB Conc 31.7 g/dl (31.0-35.0); Mean Corpuscular Hemoglobin 30.0 pg (27.0-33.0); Mean Corpuscular Volume 94.7 fL (80.0-98.0); NRBC Abs Auto 0.000 X10*3/uL (0.0-0.012); NRBC Pct Auto 0.0 /100WBC (0.0-0.2); Platelet Count 457 X10*3/uL (160-400); Red Blood Count 4.56 X10*6/uL (4.20-5.50); White Blood Count 9.9 X10*3/uL (4.8-10.8)
[2025-03-17 15:00] LABS: Alanine Aminotransferase 13 U/L (0-31); Albumin Level 4.6 g/dL (3.5-5.0); Alkaline Phosphatase 67 U/L (39-117); Anion Gap 16 (12-20); Aspartate Amino Transferase 22 U/L (5-31); Blood Urea Nitrogen 27 mg/dL (9-16); Calcium 10.1 mg/dL (8.4-10.2); Carbon Dioxide 28 mmol/L (22-29); Chloride 102 mmol/L (96-108); Cholesterol 164 mg/dL (<200); Estimated Glomerular Filt Rate > 60; HDL Cholesterol 62 mg/dL (>40); Potassium 3.7 mmol/L (3.3-5.1); Sodium 142 mmol/L (135-145); Total Protein 7.4 g/dL (6.5-8.0); Triglycerides 148 mg/dL (<150)
[2025-03-17 15:23] LABS: Folate 6.6 ng/mL (> or = 4.0); Vitamin B12 291 pg/mL (200-900)
[2025-03-17 16:00] LABS: Free T4 (Free Thyroxine) 1.34 ng/dL (0.71-1.85)
== END 2025-03-17 12:11 | disposition home or self-care (01) ==
LOC: HO.MAMMO 12:10
DX: Z00.00 Encounter for general adult medical examination without abnormal findings (principal); Z12.31 Encounter for screening mammogram for malignant neoplasm of breast; Z78.0 Asymptomatic menopausal state; E78.00 Pure hypercholesterolemia, unspecified; E04.1 Nontoxic single thyroid nodule; Z13.21 Encounter for screening for nutritional disorder; Z13.0 Encounter for screening for diseases of the blood and blood-forming organs and certain disorders involving the immune mechanism; G35.D Multiple sclerosis, unspecified
CPT/HCPCS: 36415; 77063; 77067; 77080; 80053; 80061; 82306; 82607; 82746; 84439; 84443; 85025

== ENCOUNTER → 2025-03-17 13:00 | Outpatient (BNV) | payer BC, SELFPAY | PROVIDERS: Visit Provider Radiology Diagnostic Radiology | DX: E28.39 Other primary ovarian failure (principal) | CPT/HCPCS: 77080 ==

== ENCOUNTER 2025-04-07 13:17 | Outpatient (AMB) | payer BC, SELFPAY ==
--- OUTSIDE RECORDS SUMMARY | 2025-04-03 10:30 | XMS_ITS | Encounter Summary ---
Author Organization [facility] Address [address] [facility] [facility] [address] [place] [address] Phone Care Team Providers Care Business Improvement Manager Name Role Phone Pascale Murray Primary Care Provide r Reason for Visit * Auth/Cert (Routine) Specialty Diagnoses / Procedures Referred By Isabel t Referred To Contact Referral ID Status Reason Start Date Expiration Date Visits Re quested Visits Authorized [id number] 1 1 Encounter Details Date Type Department Care Team (Late st Contact Info) Description 04/03/2025 10:30 AM EST Home Care Visit [facility] [address] [place] [phone] Elaine Marquez, OT [address] [place] [address] [email or web address] OT HOME VISIT Social History Tobacco Use Types Packs/Day Years [...] Sign Reading Time Taken Comments Blood Pressure 138/78 04/03/2025 11:13 AM EST Pulse 91 04/03/2025 11:13 AM EST Temperature 36.8 C (98.2 F) 04/03/2025 11:13 AM EST Respiratory Rate - - Oxygen Saturation 97% 04/03/2025 11:13 AM EST Inhaled Oxygen Concentration - - Weight - - Height - - Body Mass Index - - documented in this encounter Plan of Treatment Upcoming Encounters Date Type Department Care Team (Late st Contact Info) Description 04/08/2025 10:30 AM EST Home Care Visit [facility] [address] [place] [phone] Elaine Marquez, OT [address] [place] [address] [email or web address] 04/13/2025 2:00 AM EST Appointment [facility] [address] [place] [phone] Susan Brownlee RN [address] [place] [address] [email or web address] 04/14/2025 Home Care Visit [facility] [address] [place] [phone] Elaine Marquez, OT [address] [place] [address] [email or web address] 04/16/2025 1:30 AM EST Home Care Visit [facility] [address] [place] [phone] Elaine Marquez, OT [address] [place] [address] [email or web address] 10/08/2025 9:30 AM EDT Office Visit [facility] [address] [place] [phone] Michele London MD [address] [facility], 2nd [place] [address] documented as of this encounter Visit Diagnoses Not on filedocumented in this encounter Home Health Visit - Care Plan Visit Details Visit Type -OT HOME VISIT Discipline -Occupational Therapy Problems Problem Description Start [...] of Care and Teaching No HH - Knowledge and management of fall prevention measures. HH - Falls - Risk of No HH - Achieve care management for a safe to home/community discharge from homecare HH - Standard of Care No HH - Promote higher level of independence with performance of ADLs/IADLs. Description: OT GOALS: 1. Pt will participate in cognitive assessment to determine need for cognitive intervention by 04/04/25 MET 2. Pt will demonstrate improved cognitive strategies/modification to support memory of ADL routines and home safety by 04/18/25 Will co ntinue 3. Pt will demonstrate e.con strategies to support decreased RPE with ADLs/IADLs by 04/18/25 WIll continue 4. Pt will demonstrate safely cleaning bathroom by 04/18/25 Will continue HH - ADL/IADL Impairment and Therapeutic Interventions Progressing No Interventions Intervention Associated Problem/Goal Status Variance [...] and collaboration to achieve patient goals Performed S: Pt presents tearful after discussion with dtr. Pt denies falls/medication changes/other concerns. Much of the visit spent on giving pt space to vent anxieties. O: Pt edu on complex category/rule task completed with [employer] and [employer]. Pt reporting I would have given up if it wasn't for your assistance . A: Pt continues to require skilled OT to meet goals. P: Continue to address goals and POC as indicated Instruction Provided to: patient Response to Instruction/Teachin g: partially able to teach charmaine k Plan for Next Visit Specific Focus & Education Needed: cont to address goals New Orders: n/a Updated Discharge Plan: no change HH - I/E fall prevention measures Description: [...] patient at high risk for a fall Problem:HH - Falls - Risk of Goal:HH - Knowledge and management of fall prevention measures. Performed HH - Assess vital signs, pulse oximetry, pain, and as indicated, orthostatic vital signs Description: use agency-specific parameters Problem:HH - Standard of Care Goal:HH - Achieve care management for a safe to home/community discharge from homecare Performed HH - Assess skin integrity Problem:HH - Standard of Care Goal:HH - Achieve care management for a safe to home/community discharge from homecare Performed HH - Assess ADL/IADL performance, safety, management, and durable medical equipment Problem:HH - ADL/IADL Impairment and Therapeutic Interventions Goal:HH - Promote higher level of independence with performance of ADLs/IADLs. Performed documented in this encounter Care Teams Business Improvement Manager Relationship Specialty Start Date End Date Pascale Murray PA [address] [place] [address] [place] [address] PCP - General Physician [employer] 02/12/25 documented as of this encounter Additional Source Comments The information contained in this document represents components of the legal health record. It is not the complete legal health record.[facility]
--- OUTSIDE RECORDS SUMMARY | 2025-04-06 10:00 | XMS_ITS | Encounter Summary ---
Author Organization [facility] Address [address] [facility] [address] [place] [address] Phone Care Team Providers Care Ophthalmic Surgeon Name Role Phone Pascale Murray Primary Care Provide r Reason for Visit * Auth/Cert (Routine) Specialty Diagnoses / Procedures Referred By Isabel oden Referred To Contact Referral ID Status Reason Start Date Expiration Date Visits Re quested Visits Authorized [id number] 1 1 Encounter Details Date Type Department Care Team ([facility] st Contact Info) Description 04/06/2025 10:00 AM EST Home Care Visit [facility] [address] [place] [phone] Crystal Rader, TAP OUT OPERATOR [address] [place] [address] [email or web address] TAP OUT OPERATOR HOME VISIT Social History Tobacco Use Types [...] Sign Reading Time Taken Comments Blood Pressure 126/90 04/06/2025 12:47 PM EST Pulse 90 04/06/2025 12:47 PM EST Temperature 36.7 C (98 F) 04/06/2025 12:47 PM EST Respiratory Rate 18 04/06/2025 12:47 PM EST Oxygen Saturation 99% 04/06/2025 12:47 PM EST Inhaled Oxygen Concentration - - Weight - - Height - - Body Mass Index - - documented in this encounter Plan of Treatment Upcoming Encounters Date Type Department Care Team (Late st Contact Info) Description 04/08/2025 10:30 AM EST Appointment [facility] [address] [place] [phone] Elaine Marquez, OT [address] [place] [address] 04/13/2025 2:00 AM EST Appointment [facility] [address] [place] [phone] Susan Brownlee, RN [address] [place] [address] 04/14/2025 Appointment [facility] [address] [place] [phone] Elaine Marquez, OT [address] [place] [address] 04/16/2025 1:30 AM EST Appointment [facility] [address] [place] [phone] Elaine Marquez, OT [address] [place] [address] 10/08/2025 9:30 AM EDT Office Visit [facility] [address] [place] [phone] Michele London MD [address] [facility], 2nd [place] [address] documented as of this encounter Visit Diagnoses Not on filedocumented in this encounter Home Health Visit - Care Plan Visit Details Visit Type -TAP OUT OPERATOR HOME VISIT Discipline -Intermediate Problems Problem Description Start Date Status Goals Interve ntions HH - Anxiety - Actual or Risk of Impairment Disciplines: All Active Home Health Disciplines 02/16/2025 Active 1 goal linked to scheduled/document ed intervention HH - Medication Management Disciplines: All Active [...] 1 goal linked to scheduled/document ed intervention HH - Standard of Care Disciplines: All Active Home Health Disciplines 02/16/2025 Active 1 goal linked to scheduled/document ed intervention 2 goal interventions scheduled/document ed in this visit Goals Goal Associated Problem Outcome Goal Met? Visit Notes HH - Decrease anxiety through knowledge and management of triggers. HH - Anxiety - Actual or Risk of Impairment Progressing No HH - Safe medication management, avoid unnecessary harm related to medication errors and/or interactions HH - Medication Management No HH - Communication and collaboration to achieve patient goals HH - Focus of Care and Teaching No HH - Demonstrate/verbalize knowledge of community resources HH - Community Resources - Lack of Knowledge/Access Progressing No HH - Achieve care management for a safe to home/community discharge from homecare HH - Standard of Care No Interventions Intervention Associated Problem/Goal Status Variance [...] and collaboration to achieve patient goals Performed Primary Clinical Focus this Visit & Instruction Provided: Patient was seen for routine assessment. Patient states she continues to experience sinus pain/pressure and a headache. Patient states resting in a dark room helps relieve the pain. Patient stated she had concerns to address at todays nursing visit but forgot. Verbal conversations were slow and stuttered. Patient anticipates on attending f/u w/ PCP tomorrow that will effect OT. I/E in s/s of infection, and fall prevention and was advised to call the VNA w/ any questions or concerns she may have. Instruction Provided to: patient Response to Instruction/Teaching: Is fully able to teach back topics as evidenced by conversation. Plan for Next Visit Specific Focus & Education Needed: CVP New Ord ers: none Updated Discharge Plan: d/c from nursing when all goals have been met. HH - Assess vital signs, pulse oximetry, pain, and as indicated, orthostatic vital signs Description: use agency-specific parameters Problem:HH - Standard of Care Goal:HH - Achieve care management for a safe to home/community discharge from homecare Performed HH - Assess skin integrity Problem:HH - Standard of Care Goal:HH - Achieve care management for a safe to home/community discharge from homecare Performed documented in this encounter Care Teams Ophthalmic Surgeon Relationship Specialty Start Date End Date Pascale Murray PA [address] [place] [address] [place] [address] PCP - General Physician [employer] 02/12/25 documented as of this encounter Additional Source Comments The information contained in this document represents components of the legal health record. It is not the complete legal health record.[facility]
--- NOTE | 2025-04-07 13:49 | A.OFFPC_ITS ---
Vital Signs 04/07/25 13:50 Height 5 ft 3 in Weight 199 lb BMI 35.2 BP 136/82 Blood Pressure Location Lt brachial Position Sitting Respiration 18 Pulse 96 Pulse Source Pulse Oximeter Temp 98 F Temp Source Temporal Artery Scan Pulse Oximetry (%) 95 Oxygen Delivery Method Room Air Intake Visit Reasons: 3 months Grounds Supervisor Required: No Accompanied by: Self / Same As Patient Allergies celecoxib (From CELEBREX) Allergy (Severe, Verified 04/07/25 14:19) RASH AND DIFFICULTY BREATHING fluvoxamine (From LUVOX) Allergy (Severe, Verified 04/07/25 14:19) GRAND MAL SEIZURE acetaminophen (From TYLENOL) Allergy (Intermediate, Verified 04/07/25 14:19) LIVER TOX sertraline (From ZOLOFT) Allergy (Intermediate, Verified 04/07/25 14:19) ABD PAIN Medication List - Last Reconciled 04/07/25 by Pascale Murray PA-C atorvastatin 10 mg PO DAILY cholecalciferol (vitamin D3) 50 mcg PO DAILY flunisolide 1 spray intranasal DAILY furosemide 20 mg PO DAILY hydrochlorothiazide 12.5 mg PO DAILY ibuprofen 800 mg PO TID PRN lidocaine 5% 1 patch topical DAILY loratadine (Claritin) 10 mg PO DAILY meclizine 25 mg PO BID PRN metformin ER 500 mg PO DAILY metoprolol tartrate 25 mg PO DAILY sumatriptan succinate (Imitrex) Take 1 tab at onset of headache; if no relief may repeat 1 tab after at least 2 hrs; max = 3 tabs/24 hr PO Tobacco use date assessed: 03/06/25 Fall risk assessment: No Falls in past year Last assessed Fall Risk: 04/07/25 Dental Screening Dental Screen Date: 12/31/24 HPI 3 months HPI Details 69-year-old female with past medical his tory of multiple sclerosis, urinary incontinence, BPPV, thyroid nodule, generalized anxiety disorder, hypertension, hypercholesterolemia, diabetes mellitus last seen 03/24 coming in for follow up. At her last visit she was started on sumatriptan as needed for migraines and referred to [facility] Neurology. Presenting with ongoing sinus pain and pressure since December. She describes the pain as feeling like her nose is broken, with pressure, and experiences excessive clear nasal drainage, using a box of tissues weekly. She has tried saline spray without relief and takes Claritin daily, which has not helped. The patient has a history of hypertension, with recent blood pressure readings being moderate to high, particularly the diastolic number, which has been in the 90s. She is currently taking hydrochlorothiazide 12.5 mg and metoprolol once a day, with a previous medication, losartan, having been discontinued. She continues with tachycardia as well and has upcoming appt with cardiology in April. The patient has a history of chronic microvascular disease in the brain, which was noted on imaging following a hospitalization in January for a suspected stroke. She has appt with neurology coming up. The patient reports burping, which she learned could be a sign of acid reflux, but she has opted not to take omeprazole due to concerns about side effects. The patient has a history of headaches but prefers to manage them by lying down and using Tylenol, avoiding her prescribed Imitrex. [facility] Medical History Generalized headaches Herniated disc Ectopic Blindness Bipolar 2 disorder PTSD (post-traumatic stress disorder) MDD (major depressive disorder) Asthma Surgical History Hx of rotator cuff surgery Family History Sister Breast cancer Sister Breast cancer Brother Heart attack Mother Stroke Father Heart problem Borderline high blood pressure Social History Housing: Apartment Alcohol intake: current Alcohol intake frequency: a few times a week Patient Tobacco Use Status: Former Tobacco user Tobacco use type: Cigarette e-Cigarette/Vaping Use: Never Used Second Hand Smoke Exposure: Yes service: No Current occupational status: retired and disabled Gender identity: Female Cognitive needs: Yes Hearing needs: Yes (had hearing test two year ago pt states 25% of hearing loss.) Vision needs: Yes Questionnaire Thrive Questionnaire Date Thrive assessed: 08/21/24 I am a: Patient What is your living situation today?: I have a place to live, but I am worried about losing it in the future Within the past 12 months, did the food you bought not last and you didn't have the money to get more?: Often true Within the past 12 months, did you worry whether your food would run out before you got money to buy more?: Often true Do you have trouble paying for medicines?: I choose not to answer this question Do you have trouble getting transportation to medical appointments?: Yes Do you have trouble paying your heating and electricity bill?: I choose not to answer this question Do you have trouble taking care of your child, family member or friend?: Yes Do you have trouble with day-to-day activities such as bathing, preparing meals, shopping, managing finances, etc.?: Yes Are you currently unemployed and looking for a job?: I choose not to answer this question Are you interested in more education?: No THRIVE Score: 4 TRAV-7 AMB Questionnaire TRAV-7 Date TRAV - 7 assessed: 09/30/24 Source: Developed by Drs. Germán Hernandez, Henrietta Vitale, Danis csott nd colleagues, with an educational terence from [employer]. Review of Systems Const Denies body aches, Denies chills, Reports fatigue and Denies fever(s) Eyes Reports no additional complaints ENT Reports as per HPI, Reports nasal congestion, Reports nose pain and Reports sinus pain Card Denies chest pain, Denies syncope, Denies irregular heart rhythm, Denies lightheadedness and Denies dyspnea Resp Denies cough and Denies dyspnea GI Denies abdominal pain, Reports dyspepsia, Denies diarrhea, Denies nausea and Denies vomiting Musc Reports no additional complaints Skin/Breast Reports system reviewed and no additional complaints, except as documented Neuro Reports as per HPI and Denies syncope Endo Reports fatigue Physical exam (Primary Care) Vital Signs: Last Vital Signs Temp 98 F 04/07/25 13:50 Pulse 96 04/07/25 13:50 Resp 18 04/07/25 13:50 BP 136/82 04/07/25 13:50 Pulse Ox 95 04/07/25 13:50 Oxygen Delivery Method Room Air 04/07/25 13:50 BMI result Body Mass Index 35.2 Tobacco/Smoking Status: Tobacco use Status Tobacco use date assessed 03/06/25 04/07/25 13:51 Patient Tobacco Use Status Former Tobacco user 04/07/25 13:51 Tobacco use type Cigarette 04/07/25 13:51 e-Cigarette/Vaping Use Never Used 12/09/25 13:51 Thrive Assessment: Date of Thrive Assessment Date Thrive assessed 08/21/24 04/07/25 13:51 Const General: cooperative, healthy appearing, comfortable and no acute distress Orientation/consciousness: patient oriented x3 HENMT Other: boggy turbinates lou and maxillary sinus tenderness Head: Yes normocephalic Ears: hearing grossly normal bilaterally General nose exam: Normal external nose present Eyes General: appearance normal, both eyes and all related structures Conjunctivae: conjunctivae normal Neck Neck: Yes full ROM and Yes no lymphadenopathy Resp Effort & Inspection: normal respiratory effort Auscultation: clear to auscultation bilaterally, no crackles, no rales, no rhonchi and no wheezes Cardio Rate: regular rate Rhythm: regular rhythm Skin General skin exam: no rashes or lesions noted Neuro General: patient oriented x3 Gait exam (Neuro): Normal gait present Extrem General: Yes normal to inspection, Yes full ROM and No edema Psych Affect: normal affect Attitude: cooperative Insight: Good insight present (Psych) Judgement: Good judgement present (Psych) Coding Level of Care Code Est Pt Level 4 (94295) Diagnoses Hypertension I10 Tachycardia R00.0 Venous insufficiency I87.2 Diabetes mellitus E11.9 Multiple sclerosis G35 Generalized headaches R51.9 Hypercholesterolemia E78.00 Stutter F80.81 Sinusitis J32.9 GERD (gastroesophageal reflux disease) K21.9 Assessment & Plan Assessment & Plan (1) Hypertension: Code(s): I10 - Essential (primary) hypertension Category: Medical Plan: Continue on current blood pressure medication. Avoid salt intake and encourage healthy diet and regular exercise. Blood pressure at home has been consistently high. Plan to increase Metoprolol to 50mg and monitor blood pressure at home. She will reach out if she has any symptoms or if blood pressure is too high or too low. (2) Tachycardia: Code(s): R00.0 - Tachycardia, unspecified Category: Medical Plan: EKG showing normal sinus tachycardia. See above plan. Increase Metoprolol to 50mg and cardiology appt in April. (3) Venous insufficiency: Code(s): I87.2 - Venous insufficiency (chronic) (peripheral) Category: Medical Plan: Patient has upcoming appt with vascular in May. (4) Diabetes mellitus: Code(s): E11.9 - Type 2 diabetes mellitus without complications Category: Medical Plan: Decrease the amount of carbohydrates such as pasta, bread, rice, and potatoes and limit the amount of sweets. Although fruits are generally healthy they should be eaten in moderation as they are still high in sugar. (5) Multiple sclerosis: Comment: Dr. Sanon Code(s): G35 - Multiple sclerosis Category: Medical Plan: We are currently waiting for a neurology appt which is scheduled for next year. She will try and schedule something sooner as well. (6) Generalized headaches: Code(s): R51.9 - Headache, unspecified Category: Medical Plan: Continue with Imitrex as needed, she has not needed the medication recently. (7) Hypercholesterolemia: Code(s): E78.00 - Pure hypercholesterolemia, unspecified Category: Medical Plan: Avoid foods that are high in cholesterol such as red meat, fried foods, eggs and baked goods. Triglyceride goal of less than 150 and LDL goal of less than 130. Continue on Atorvastatin (8) Stutter: Code(s): F80.81 - Childhood onset fluency disorder Category: Medical Plan: She is awaiting approval from [facility] for speech therapy. (9) Sinusitis: Code(s): J32.9 - Chronic sinusitis, unspecified Category: Medical Plan: The patient's persistent sinus pain and pressure since December, despite clear mucus and lack of fever, suggests possible sinusitis. Symptoms do not respond to nasal sprays or allergy medication. Given the pain, and exam findings a bacterial component is suspected. A 7-day course of a bacterial antibiotic will be prescribed. If symptoms persist after the antibiotic course, further steps will include imaging and a different medication to address the rhinorrhea. (10) GERD (gastroesophageal reflux disease): Code(s): K21.9 - Gastro-esophageal reflux disease without esophagitis Category: Medical Plan: The patient experiences burping, which is a symptom of acid reflux. She is hesitant to take omeprazole due to concern for side effects. As an alternative, simethicone (Gas-X) will be prescribed on an as-needed basis to manage the gas and burping. This prescription will be sent to the local pharmacy. Plan This note was constructed using voice recognition software. While every effort has been made to ensure accuracy and stakeholder manager, still areas may have been included sometimes these areas may affect the content or meeting of the given symptoms. Total time spent caring for the patient today was 30 minutes. This includes time spent before the visit reviewing the chart, time spent during the visit, and time spent after the visit and documentation. Patient was informed and verbally consented to the use of an ambient scribe for clinic note documentation during this visit. Medications: New amoxicillin-pot clavulanate 875-125 mg 1 tab PO BID 14 tabs 0RF simethicone (Gas Relief (simethicone)) 180 mg PO BID PRN 60 caps 0RF abdominal distention metoprolol tartrate 50 mg PO DAILY 90 tabs 0RF metoprolol tartrate 50 mg PO DAILY 90 tabs 0RF Discontinued flunisolide Discontinued Reason: Patient no longer taking 1 spray intranasal DAILY 25 mL 3RF metoprolol tartrate Discontinued Reason: Patient no longer taking 25 mg PO DAILY 90 tabs 0RF
[2025-04-07 13:50] VITALS: BP 136/82; PULSE 96; RESP 18; TEMP 36.6; O2SAT 95; BMI 35.2
--- OUTSIDE RECORDS SUMMARY | 2025-04-07 18:12 | XMS_ITS | Encounter Summary ---
Author Organization [facility] Address [address] [place] [address] Phone Care Team Providers Care Assisted Living Nursing Director Name Role Phone Pascale Murray Primary Care Provide r Reason for Visit * Auth/Cert (Routine) Specialty Diagnoses / Procedures Referred By Contwolf t Referred To Contact Referral ID Status Reason Start Date Expiration Date Visits Re quested Visits Authorized [id number] 1 1 Encounter Details Date Type Department Care Team ([facility] st Contact Info) Description 04/02/2025 Home Care Visit [facility] [address] [place] [phone] Elaine Marquez, OT [address] [place] [address] [email or web address] TELEPHONE ENCOUNTER Social History Tobacco Use Types Packs/Day Years [...] PM EDT documented as of this encounter Plan of Treatment Upcoming Encounters Date Type Department Care Team ([facility] st Contact Info) Description 04/08/2025 10:30 AM EST Appointment [facility] [address] [place] [address] Elaine Marquez, OT [address] [place] [address] 04/13/2025 2:00 AM EST Appointment [facility] [address] [place] [address] Susna Brownlee, PAWAN [address] [place] [address] 04/14/2025 Appointment [facility] [address] [place] [address] Elaine Marquez, OT [address] [place] [address] 04/16/2025 1:30 AM EST Appointment [facility] [address] [place] [address] Elaine Marquez, OT [address] [place] [address] 10/08/2025 9:30 AM EDT Office Visit [facility] [address] [place] [phone] Michele London MD [address] [facility] [place] [address] documented as of this encounter Visit Diagnoses Not on filedocumented in this encounter Care Teams Assisted Living Nursing Director Relationship Specialty Start Date End Date Pascale Murray PA [address] [place] [address] [place] [address] PCP - General Physician Addiction Professional 02/12/25 documented as of this encounter Additional Source Comments The information contained in this document represents components of the legal health record. It is not the complete legal health record.[facility]
--- OUTSIDE RECORDS SUMMARY | 2025-04-07 18:13 | XMS_ITS | Encounter Summary ---
Author Organization [facility] Address [address] [place] [id number] Phone Care Team Providers Care Chemical Maker Name Role Phone Pcp, Unknown Primary Care Provider Pascale Gilman Primary Care Provide r Encounter Details Date Type Department Care Team (Late st Contact Info) Description 02/11/2025 Procedure Pass [facility] [address] [place] [address] Social History Tobacco Use Types Packs/Day Years [...] 8:54 PM EDT Deidra Araiza RN * [place] Suicide Severity Rating Scale (Screener/Recent Self-Report) Question [...] Info) Description 04/08/2025 10:30 AM EST Appointment [facility] [address] [place] [address] Elaine Marquez, OT [address] [place] [address] 04/13/2025 2:00 AM EST Appointment [facility] [address] [place] [address] Susan Brownlee, PAWAN [address] [place] [address] 04/14/2025 Appointment [facility] [address] [place] [address] Elaine Marquez, OT [address] [place] [address] 04/16/2025 1:30 AM EST Appointment [facility] [address] [place] [address] Elaine Marquez, OT [address] [place] [address] 10/08/2025 9:30 AM EDT Office Visit [facility] [address] [place] [address] Michele London MD [address] [place] [address], [address] [place] [address] documented as of this encounter Visit Diagnoses Not on filedocumented in this encounter Care Teams Chemical Maker Relationship Specialty Start Date End Date Pcp, Unknown PCP - General 03/18/24 02/11/25 Pascale Murray PA [address] [place] [address] [place] [address] PCP - General Physician Lead Security Officer 02/12/25 documented as of this encounter Additional Source Comments The information contained in this document represents components of the legal health record. It is not the complete legal health record.[facility]
--- OUTSIDE RECORDS SUMMARY | 2025-04-07 18:13 | XMS_ITS | Clinical Summary ---
Author Organization [facility] Address [address] [place] [id number] Phone Care Team Providers Care Licensed Occupational Therapy Assistant Name Role Phone Pascale Murray Primary Care Provide r Allergies Active Allergy Reactions Criticality Noted Date Comments Celebrex (Celecoxib) Hives 05/21/2014 Luvox (Fluvoxamine) Unknown 05/21/2014 Sertraline 10/23/2023 Medications metFORMIN (FORTAMET) 1000 MG (OSM) 24 hr tablet Take 500 mg by mouth daily with breakfast. Active hydroCHLOROthiaz dianna 12.5 MG tablet Take by mouth daily. Active meclizine (ANTIVERT) 12.5 mg tablet Take 12.5 mg by mouth 3 (three) times a day as needed for dizziness. Active metoprolol tartrate (LOPRESSOR) 25 MG tablet Take 25 mg by mouth daily. Active furosemide (LASIX) 20 MG tablet Take 20 mg by mouth daily. 02/16/2025 Active docusate sodium (COLACE) 100 MG capsule Take 100 mg by mouth 2 (two) times a day. 02/16/2025 Active aspirin 81 MG EC tablet Take 81 mg by mouth daily. 02/16/2025 Active atorvastatin (LIPITOR) 10 MG tablet Take 10 mg by mouth daily. 02/16/2025 Active SUMAtriptan (IMITREX) 50 MG tablet Take 50 mg by mouth once as needed for migraine. 03/17/2025 Active Active Problems Problem Noted Date Diagnosed [...] Notes that she had an ultrasound at [facility] in December, results are uncertain though she reports it may have been a DVT. She is not on any anticoagulation. Currently with negative Homans' sign. No pleuritic symptoms, hypoxia. No tachycardia. - Follow-up ultrasound -D-dimer pending Type 2 diabetes mellitus, [facility] long-term current use of insulin 02/11/2025 Assessment [...] Encounters Date Type Department Care Team Description 04/06/2025 10:00 AM EST Home [facility] Visit [facility] [address] [place] [phone] Crystal Rader, MANAGER REHAB MANAGER REHAB HOME VISIT 04/03/2025 10:30 AM EST Home Care Visit [facility] [address] [place] [phone] Elaine Marquez, OT OT HOME VISIT 04/02/2025 Home Care Visit [facility] [address] [place] [address] Elaine Marquez, OT TELEPHONE ENCOUNTER 04/01/2025 3:30 PM EST Home [facility] Visit [facility] [address] [place] [address] Elaine Marquez, OT OT TFA VISIT 03/31/2025 1:00 PM EST Home Care Visit [facility] [address] [place] [phone] Paresh Juan LPN MANAGER REHAB HOME VISIT 03/30/2025 Episode Documentation Update [facility] [address] [place] [address] Ai Mart 03/25/2025 10:15 AM EST Home Care Visit [facility] [address] [place] [address] Elaine Marquez, OT OT HOME VISIT 03/24/2025 10:30 AM EST Home [facility] Visit [facility] [address] [place] [address] Elaine Marquez, OT OT HOME VISIT 03/23/2025 Home Care Visit [facility] [address] [place] [address] Priya Butler, OT TELEPHONE ENCOUNTER 03/23/2025 Home Care Visit [facility] [address] [place] [address] Grecia Wilson, RN CASE COMMUNICATION 03/19/2025 Home Care Visit [facility] [address] [place] [address] Elaine Marquez, OT TELEPHONE ENCOUNTER 03/18/2025 10:30 AM EST Home [facility] Visit [facility] [address] [place] [address] Elaine Marquez, OT OT HOME VISIT 03/18/2025 9:00 AM EST Home [facility] Visit [facility] [address] [place] [address] Paresh Juan LPN MANAGER REHAB HOME VISIT 03/13/2025 10:00 AM EST Home [facility] Visit [facility] [address] [place] [address] Elaine Marquez, OT OT HOME VISIT 03/13/2025 9:00 AM EST Home [facility] Visit [facility] [address] [place] [address] Eunice Ching, PT PT DISCIPLINE DISCHARGE VISIT 03/10/2025 11:30 AM EST Home [facility] Visit [facility] [address] [place] [address] Eunice Ching, PT PT HOME VISIT 03/10/2025 1:30 AM EST Home [facility] Visit [facility] [address] [place] [address] Paresh Juan LPN MANAGER REHAB HOME VISIT 03/03/2025 10:00 AM EST Home [facility] Visit [facility] [address] [place] [address] Elaine Marquez, OT OT EVALUATION 02/26/2025 Episode Documentation Update [facility] [address] [place], [place] [phone] Elina Millsn 02/25/2025 Home Care Visit [facility] [address], [place] [phone] Elaine Marquez, OT TELEPHONE ENCOUNTER 02/24/2025 2:00 PM EDT Home Care Visit [facility] [address], [place] [phone] Eunice Ching, PT PT HOME VISIT 02/24/2025 1:45 PM EDT Home Care Visit [facility] [address], [place] [phone] Kishor Zafar RN SN HOME VISIT 02/24/2025 Home Care Visit [facility] [address] [place] [address] Elaine Marquez, OT TELEPHONE ENCOUNTER 02/23/2025 Home Care Visit [facility] [address], [place] [phone] Eunice Ching, PT TELEPHONE ENCOUNTER 02/19/2025 Home Care Visit [facility] [address], [place] [phone] Samara Casillas, PT TELEPHONE ENCOUNTER 02/18/2025 3:30 PM EDT Home Care Visit [facility] [address] [place] [address] Eunice Ching, PT PT EVALUATION 02/16/2025 12:45 PM EDT Home Care Visit [facility] [address], [place] [phone] Zuly Aldana, RN SN OASIS START OF CARE (SOC) 02/16/2025 Plan of Care Documentation [facility] [address] [place] [address] 02/14/2025 Home Care Visit [facility] [address], [place] [phone] Jami Dean, PAWAN CASE COMMUNICATION 02/11/2025 11:24 AM EDT - 02/13/2025 3:23 PM EDT Hospital Encounter [facility] [address] [place] [address] Santo Conway MD Steinberg, MD Jacqueline Stephenson Maksim, DO Kielbasa, Linda Barreto MD Discharge Disposition: Home or Self Care 02/11/2025 Procedure Pass [facility] [address] [place] [address] 02/11/2025 Procedure Pass [facility], Mri - [address] [address] 02/11/2025 Orders Only [facility] [address] [place] [phone] Homehealth, Interface Provider, 02/11/2025 Procedure Pass [facility], Ct Scan - [facility] [address] [place] [address] from Last 3 Months Social History Tobacco [...] 12:47 PM EST Respiratory Rate 18 04/06/2025 12:4 7 PM EST Oxygen Saturation 99% 04/06/2025 12: 47 PM EST Inhaled Oxygen Concentration - - Weight 90.7 kg (199 lb 15.3 oz) 02/11/2025 7:37 PM EDT Height 161.3 cm (5' 3.5 ) 02/12/2025 12 :30 AM EDT Body Mass Index 34.87 02/11/2025 7:37 PM EDT Plan of Treatment Upcoming Encounters Date Type Department Care Team (Late st Contact Info) Description 04/08/2025 10:30 AM EST Appointment [facility] [address] [place] [phone] Elaine Marquez, OT [address] [place] [address] 04/13/2025 2:00 AM EST Appointment [facility] [address] [place] [phone] Susan Brownlee, PAWAN [address] [place] [address] 04/14/2025 Appointment [facility] [address] [place] [phone] Elaine Marquez, OT [address] [place] [address] 04/16/2025 1:30 AM EST Appointment [facility] [address] [place] [phone] Elaine Marquez, OT [address] [place] [address] 10/08/2025 9:30 AM EDT Office Visit [facility] Neurology [address] [place] [phone] Michele London MD [address] [facility], [address] [place] [address] Health Maintenance Due Date Last Done Comments [...] 05/31/2014 INFLUENZA VACCINE (#1) 2024 COVID-19 VACCINE ( season) 2024 DIABETIC EYE EXAM 02/11/2025 URINE MICROALBUMIN/CREATININE RATIO 02/11/2025 HEMOGLOBIN A1C 08/13/2025 02/12/2025, 06/08/2014 BLOOD PRESSURE 10/05/2025 04/06/2025 CREATININE LEVEL 02/13/2026 02/13/2025, , 02/11/2025, Additional [...] of7 resultswithin the time period is included. [facility] Glucose, POCT 176(H) 70 - 100 mg/dL [facility] 02/13/2025 11:3 1 AM EDT 02/13/2025 11:35 AM EDT us Linda Lundberg MD POINT OF CARE TEST ORDERABL ES Final Result Performing Organization Address City/[facility]/ZIP Co de Phone Number [address] [address] * (ABNORMAL) TSH with reflex (02/13/2025 6:01 AM EDT) TSH 0.08(L) 0.27 - 4.20 uIU/mL [facility] Blood 02/13/2025 6:01 AM EDT 02/13/2025 6:13 AM EDT us Linda Lundberg MD LAB BLOOD BKR ORDERABLES Fi nal Result Performing Organization Address City/[facility]/ZIP Co de Phone Number [address] [address] * (ABNORMAL) CBC and differential (02/13/2025 6:01 AM EDT) Only the most recent of2 resultswithin the time period is included. WBC 8.51 4.00 - 11.00 K/uL [facility] RBC 3.67(L) 4.00 - 5.20 M/uL [facility] HGB 11.0(L) 12.0 - 16.0 g/dL [facility] HCT 35.4(L) 36.0 - 46.0 % [facility] PLT 322 150 - 450 K/uL [facility] MCV 96.5 80.0 - 100.0 fL [facility] MCH 30.0 27.0 - 31.0 pg [facility] MCHC 31.1(L) 32.0 - 36.0 g/dL [facility] RDW 13.0 11.5 - 14.5 % [facility] MPV 10.9 8.4 - 12.0 fL [facility] NRBC 0.00 0.00 /100 WBCs [facility] ABSOLUTE NRBC 0.00 0.00 K/uL [facility] DIFF METHOD Auto [facility] NEUTS 86.9(H) 48.0 - 76.0 % [facility] LYMPHS 7.5(L) 18.0 - 41.0 % [facility] MONOS 5.1 4.0 - 11.0 % [facility] EOS 0.0 0.0 - 5.0 % [facility] BASOS 0.0 0.0 - 1.5 % [facility] Granulocytes, immature (%) 0.5 0.0 - 0.9 % [facility] ABSOLUTE NEUTS 7.40 1.92 - 7.60 K/uL [facility] ABSOLUTE LYMPHS 0.64(L) 0.72 - 4.10 K/uL [facility] ABSOLUTE MONOS 0.43 0.16 - 1.10 K/uL [facility] ABSOLUTE EOS 0.00 0.00 - 0.50 K/uL [facility] ABSOLUTE BASOS 0.00 0.00 - 0.15 K/uL [facility] Granulocytes, immature 0.04 0.00 - 0.09 K/uL [facility] Blood 02/13/2025 6:01 AM EDT 02/13/2025 6:13 AM EDT us Linda Lundberg MD LAB BLOOD BKR ORDERABLES Fi nal Result [address] [address] * (ABNORMAL) Free T3 (02/13/2025 6:01 AM EDT) FREE T3 1.9(L) 2.0 - 4.4 pg/mL [facility] 02/13/2025 6:01 AM EDT 02/13/2025 6:13 AM EDT us Linda Lundberg MD LAB BLOOD BKR ORDERABLES Fi nal Result [address] [address] * Free T4 (02/13/2025 6:01 AM EDT) [facility] FREE T4 0.9 0.9 - 1.7 ng/dL [facility] 02/13/2025 6:01 AM EDT 02/13/2025 6:13 AM EDT Linda Lundberg MD LAB BLOOD BKR ORDERABLES Fi nal Result Performing Organization Address [facility]/ZIP Co de Phone Number [address] [address] * Magnesium (02/13/2025 6:01 AM EDT) [facility] MAGNESIUM 2.1 1.6 - 2.6 mg/dL [facility] Blood 02/13/2025 6:01 AM EDT 02/13/2025 6:13 AM EDT Linda Lundberg MD LAB BLOOD BKR ORDERABLES Fi nal Result Performing Organization Address [facility] [[email or web address]] Co de Phone Number [address] [address] * (ABNORMAL) Basic metabolic panel (02/13/2025 6:01 AM EDT) Only the most recent of3 resultswithin the time period is included. [facility] SODIUM 140 133 - 146 mmol/L [facility] CHLORIDE 105 96 - 108 mmol/L [facility] POTASSIUM 4.1 3.3 - 5.1 mmol/L [facility] CO2 25 21 - 35 mmol/L [facility] BUN 27(H) 6 - 19 mg/dL [facility] CREATININE 0.70 0.5 - 1.5 mg/dL [facility] GLUCOSE 189(H) 70 - 99 mg/dL [facility] CALCIUM 8.8 8.4 - 10.3 mg/dL [facility] EGFR 94 >59 mL/min/1.7 3m2 [facility] Comment:Estimated glomerular filtration rate calculated using the CKD-EPI refit equation. ANION GAP 14 10 - 20 mmol/L [facility] Blood 02/13/2025 6:01 AM EDT 02/13/2025 6:13 AM EDT us Linda Lundberg MD LAB BLOOD BKR ORDERABLES Fi nal Result [facility] [address] [place] [address] * TTE COMPREHENSIVE (02/12/2025 12:34 PM EDT) [...] Antonio Mobley PA-C CV ECHO ORDERABLES Fabi moreira Result * US Lower Extremity Veins Duplex [...] femoral vein: Normal compressibility. Procedure Note Elieser Antunez, RONALDO - 02/12/2025 US LOWER EXTREMITY VEINS DUPLEX (RIGHT) Referring clinician's provided indication for this examination in Epic:Edema; Right Leg Pain TECHNIQUE: Lower extremity venous [...] the visualizedveins of the right lower extremity. Jose Antonio Mobley PA-C CV US VASCULAR Final R esult * C-reactive protein, high sensitivity (02/12/2025 5:41 AM EDT) CRP, HIGH SENSITIVITY 5.0 0.0 - 5.0 mg/L [facility] Comment: Interpretation: hsCRP level (mg/L) Relative Risk <1.0 Low 1.0 - 3.0 Average >3.0 High Neonates (0-3 weeks): 0.1 - 4.1 mg/L Children (2 months - 15 years): 0.1 - 2.8 mg/L Blood 02/12/2025 5:41 AM EDT 02/12/2025 6:02 AM EDT Jose Antonio Mobley PA-C LAB BLOOD BKR ORDERABLE S Final Result Performing Organization Address [facility] de Phone Number [address] [address] * PTT (02/12/2025 5:41 AM EDT) APTT 33.6 25.1 - 36.5 sec [facility] Comment:APTT response to unf ractionated heparin concentrations between 0.3 and 0.7 IU/mL is typically 54.0-94.0 seconds in uncomplicated cases. The Anti-Xa assay is the preferred method. Blood 02/12/2025 5:41 AM EDT 02/12/2025 6:02 AM EDT Jose Antonio Mobley PA-C LAB BLOOD BKR ORDERABLE S Final Result Performing Organization Address [facility] [[email or web address]] Co de Phone Number [address] [address] * (ABNORMAL) Sedimentation rate (ESR) (02/12/2025 5:41 AM EDT) ESR 35(H) 0 - 30 mm/h [facility] Blood 02/12/2025 5:41 AM EDT 02/12/2025 6:02 AM EDT Jose Antonio Mobley PA-C LAB BLOOD BKR ORDERABLE S Final Result Performing Organization Address City/[facility] [[email or web address]] Co de Phone Number [address] [address] * PT-INR (02/12/2025 5:41 AM EDT) Only the most recent of2 resultswithin the time period is included. PT 11.4 10.2 - 12.9 sec [facility] INR 0.9 0.9 - 1.1 [facility] Comment:Therapeutic range fo r oral Vitamin K antagonists: 2.0-3.5 Blood 02/12/2025 5:41 AM EDT 02/12/2025 6:02 AM EDT us Jose Antonio Mobley PA-C LAB BLOOD BKR ORDERABLE S Final Result Performing Organization Address [facility] de Phone Number [address] [address] * (ABNORMAL) CBC (02/12/2025 5:41 AM EDT) WBC 8.12 4.00 - 11.00 K/uL [facility] RBC 3.99(L) 4.00 - 5.20 M/uL [facility] HGB 12.1 12.0 - 16.0 g/dL [facility] HCT 37.5 36.0 - 46.0 % [facility] PLT 348 150 - 450 K/uL [facility] MCV 94.0 80.0 - 100.0 fL [facility] MCH 30.3 27.0 - 31.0 pg [facility] MCHC 32.3 32.0 - 36.0 g/dL [facility] RDW 12.8 11.5 - 14.5 % [facility] MPV 10.8 8.4 - 12.0 fL [facility] NRBC 0.00 0.00 /100 WBCs [facility] ABSOLUTE NRBC 0.00 0.00 K/uL [facility] Blood 02/12/2025 5:41 AM EDT 02/12/2025 6:02 AM EDT us Jose Antonio Mobley PA-C LAB BLOOD BKR ORDERABLE S Final Result Performing Organization Address City/[facility]/ZIP Co de Phone Number [address] [address] * (ABNORMAL) TSH (02/12/2025 5:41 AM EDT) TSH 0.11(L) 0.27 - 4.20 uIU/mL [facility] Blood 02/12/2025 5:41 AM EDT 02/12/2025 6:02 AM EDT Jose Antonio Mobley PA-C LAB BLOOD BKR ORDERABLE S Final Result Performing Organization Address [facility]/ZIP Co de Phone Number [address] [address] * (ABNORMAL) Hemoglobin A1c (02/12/2025 5:41 AM EDT) HEMOGLOBIN A1C 6.8(H) 4.3 - 5.8 % [facility] Blood 02/12/2025 5:41 AM EDT 02/12/2025 6:02 AM EDT Jose Antonio Mobley PA-C LAB BLOOD BKR ORDERABLE S Final Result Performing Organization Address City/[facility]/ZIP Co de Phone Number [address] [address] * (ABNORMAL) Lipid panel (02/12/2025 5:41 AM EDT) HDL 66 mg/dL [facility] Comment: Interpretation <40 mg/dL: Low HDL cholesterol (major risk factor for CHD) Greater than or equal to 60 mg/dL: High HDL cholesterol ( negative risk factor for CHD) HDL - cholesterol is affected by a number of factors, e.g. smoking, excerise, hormones, sex and age. CHOLESTEROL 180 0 - 240 mg/dL [facility] TRIGLYCERIDES 89 30 - 160 mg/dL [facility] LDL 96 50 - 129 mg/dL [facility] Comment: LDL levels in terms of risk for coronary heart disease: <100 mg/dL: Optimal 100-129 mg/dL: Near or above optimal 130-159 mg/dL: Borderline high 160-189 mg/dL: High >190 mg/dL: Very High CARDIAC RISK RATIO 2.7(L) 3.3 - 4.4 [facility] Blood 02/12/2025 5:41 AM EDT 02/12/2025 6:02 AM EDT Jose Antonio Mobley PA-C LAB BLOOD BKR ORDERABLE S Final Result Performing Organization Address [facility]/ZIP Co de Phone Number [address] [address] * (ABNORMAL) D-dimer (02/11/2025 8:22 PM EDT) D-DIMER 631(H) <500 ng/mL FEU [facility] Comment:In patients with low to moderate pre-test probability scores for VTE (PE or DVT), a D-Dimer cut-off less than 500 ng/mL (FEU) has a negative predictive value (NPV) of 97 to 100%. Blood 02/11/2025 8:22 PM EDT 02/11/2025 8:27 PM EDT Jose Antonio Mobley PA-C LAB BLOOD BKR ORDERABLE S Final Result [address] [address] * Lab Add On: BNP (02/11/2025 8:22 PM EDT) TEST REQUESTED BNP [facility] Comments (Chemistry) Add on order being processed. Floor or provider will be notified if testing cannot be performed [facility] 02/11/2025 8:22 PM EDT 02/11/2025 8:27 PM EDT us Jose Antonio Mobley PA-C LAB BLOOD ORDERABLES Fi nal Result [address] [address] * MRI BRAIN WITH AND WITHOUT CONTRAST [...] clinician's provided indication for this examination in [facility]: * Neuro deficit, acute, stroke suspected [...] clinician's provided indication for this examination in [facility]: *Neuro deficit, acute, stroke suspected TECHNIQUE: [...] by Masoud Hicks. Jose Antonio Mobley PA-C IMBrenda MR HEAD/NECK Final Result * XR Chest [...] clinician's provided indication for this examination in [facility]: Dyspnea (Shortness of Breath) COMPARISON: XR [...] clinician's provided indication for this examination in [facility]:Dyspnea (Shortness of Breath) COMPARISON: XR CHEST [...] degenerative orrelated to sequela of prior injury. us Jose Antonio Mobley PA-C IMG XR CHEST [...] clinician's provided indication for this examination in [facility]: * Dizziness, persistent/recurrent, cardiac or vascular cause [...] BPM [facility] Atrial Rate 99 BPM [facility] [place] Interval 138 ms [facility] QRS Duration 80 ms [facility] QT Interval 336 ms [facility] QTC Interval 431 ms [facility] P [place] 37 degrees [facility] R Wave [place] 46 degrees [facility] T Wave [place] 31 degrees [facility] 02/11/2025 12:3 6 PM EDT 02/12/2025 10:19 AM EDT Narrative [facility] - 02/12/2025 10:19 AM EDT Normal sinus rhythm Possible Left atrial enlargement Borderline ECG When compared with ECG of 18-Mar-2024 22:04, No significant change was found Confirmed by Korey Casas ([id number]) on 02/12/2025 10:19:21 AM Santo Conway MD ECG ORDERABLES Final Result [facility] * LFTs (hepatic panel) (02/11/2025 12:12 PM EDT) ALKALINE PHOSPHATASE 60 39 - 117 U/L [facility] TOTAL BILIRUBIN 0.3 0.0 - 1.2 mg/dL [facility] DIRECT BILIRUBIN 0.1 0.0 - 0.2 mg/dL [facility] Bilirubin (Indirect) NOT CALCULATED 0 - 1.5 mg/dL [facility] AST 19 0 - 37 U/L [facility] ALT 10 0 - 40 U/L [facility] TOTAL PROTEIN 6.6 6.5 - 8.0 g/dL [facility] ALBUMIN 3.9 3.9 - 4.8 g/dL [facility] GLOBULIN 2.7 1 - 4.8 g/dL [facility] A/G Ratio 1.44 1.00 - 4.80 RATIO [facility] Blood 02/11/2025 12:1 2 PM EDT 02/11/2025 12:17 PM EDT Santo Conway MD LAB BLOOD BKR ORDERABLES Final Result [facility] [address] [place] [address] * (ABNORMAL) NT-proBNP (02/11/2025 12:12 PM EDT) NT-PROBNP 190(H) 0 - 125 pg/mL [facility] 02/11/2025 12:1 2 PM EDT 02/11/2025 12:17 PM EDT Santo Conway MD LAB BLOOD BKR ORDERABLES Final Result Performing Organization Address [facility]/ZIP Co de Phone Number [address] [address] * (ABNORMAL) Venous blood gas (02/11/2025 12:12 PM EDT) pH, Venous 7.37 7.31 - 7.41 [facility] PCO2, Venous 48.30 41.00 - 51.00 mmHg [facility] PO2, Venous 63.50(H) 35.00 - 40.00 mmHg [facility] HCO3, Venous 27 23 - 28 mmol/L [facility] BASE EXCESS VENOUS 1.1 0.0 - 3.0 mmol/L [facility] SO2, VENOUS 92.50(H) 60.00 - 80.00 % [facility] FO2HB, VENOUS 91.00(H) 71.00 - 74.00 % [facility] Carboxy Hgb 1.30 0 - 1.50 % [facility] MetHgb % 0.30 0 - 1.50 % [facility] Blood 02/11/2025 12:1 2 PM EDT 02/11/2025 12:20 PM EDT Santo Conway MD LAB BLOOD BKR ORDERABLES Final Result Performing Organization Address [facility]/ZIP Co de Phone Number [address] [address] from Last [address] [place] [id number] MEDICARE PART A & B MEDICARE HMO BLUE REPLACEMENT MEDICARE PART A & B MEDICARE HMO BLUE REPLACEMENT MEDICARE PART A & B Member Subscriber Plan / Payer (Ef fective 2016-Present) Name:Brandy Wise Member ID:[id number] Relation to Subscriber:Self Name:Brandy Wise Subscriber ID:[id number] Payer ID:[id number] Group ID:Not on file Type:Medicare Address: [employer] [address] [place] [id number] [place] [address] MEDICARE HMO BLUE REPLACEMENT MEDICARE PART A & B [facility] MEDICARE HMO BLUE REPLACEMENT MEDICARE PART A & B Member Subscriber Plan / Payer ( fective 2016-Present) Name:Brandy Wise Member ID:[id number] Relation to Subscriber:Self Name:Brandy Wise Subscriber ID:[id number] Payer ID:[id number] Group ID:Not on file Type:Medicare Address: [employer] [address] [place], [place] [id number] [place] [address] MEDICARE HMO BLUE REPLACEMENT MEDICARE PART A & B [id number] [place] [address] MEDICARE HMO BLUE REPLACEMENT Advance Directives For more information, please contact: [phone] (9AM - 5PM [facility], Sunday-Sunday) * Full Code (Latest Code Status on File) Date Activated Date Inactivated Comments 02/11/2025 6:41 PM Question Answer Comments Code Status Confirmed With: Patient Code Status Communicated To: Inpatient Attending Care Teams Licensed Occupational Therapy Assistant Relationship Specialty Start Date End Date Pascale Murray PA [address] [place] [address] [place] [address] PCP - General Physician Assembly Member 02/12/25 Additional Source Comments The information contained in this document represents components of the legal health record. It is not the complete legal health record.[facility]
--- OUTSIDE RECORDS SUMMARY | 2025-04-07 18:13 | XMS_ITS | Encounter Summary ---
Author Organization [facility] Address [address] [place] [address] Phone Care Team Providers Care Wind Up Operator Name Role Phone Pcp, Unknown Primary Care Provider Pascale Gilman Primary Care Provide r Encounter Details Date Type Department Care Team ([facility] st Contact Info) Description 02/11/2025 Procedure Pass [facility] [address] [place] [address] Social History Tobacco Use Types Packs/Day Years [...] 8:54 PM EDT Deidra Araiza RN * [place] Suicide Severity Rating Scale (Screener/Recent Self-Report) Question [...] Description 04/08/2025 10:30 AM EST Appointment [facility] [address] [place] [address] Elaine Marquez, OT [address] [place] [address] 04/13/2025 2:00 AM EST Appointment [facility] [address] [place] [address] Susan Brownlee, PAWAN [address] [place] [address] 04/14/2025 Appointment [facility] [address] [place] [address] Elaine Marquez, OT [address] [place] [address] 04/16/2025 1:30 AM EST Appointment [facility] [address] [place] [address] Elaine Marquez, OT [address] [place] [address] 10/08/2025 9:30 AM EDT Office Visit [facility] Neurology [address] [place] [id number] Michele London MD [address] [place] [address], [address] [place] [address] documented as of this encounter Visit Diagnoses Not on filedocumented in this encounter Care Teams Wind Up Operator Relationship Specialty Start Date End Date Pcp, Unknown PCP - General 03/18/24 02/11/25 Pascale Murray PA [address] [place] [address] [place] [id number] PCP - General Physician Manager Track 02/12/25 documented as of this encounter Additional Source Comments The information contained in this document represents components of the legal health record. It is not the complete legal health record.[facility]
--- OUTSIDE RECORDS SUMMARY | 2025-04-07 18:13 | XMS_ITS | Encounter Summary ---
Author Organization [facility] Address [address] [place] [address] Phone Care Team Providers Care Advertising Supervisor Name Role Phone Pcp, Unknown Primary Care Provider Pascale Gilman Primary Care Provide r Encounter Details Date Type Department Care Team ([facility] st Contact Info) Description 02/11/2025 Procedure Pass [facility], Ct Scan - [facility] [address] [place] [address] Social History Tobacco Use Types Packs/Day Years [...] 8:54 PM EDT Deidra Araiza RN * [place] Suicide Severity Rating Scale (Screener/Recent Self-Report) Question [...] Appointment [facility] [address] [place] [address] Elaine Marquez, OT [address] [place] [address] 04/13/2025 2:00 AM EST Appointment [facility] [address] [place] [address] Susan Brownlee, PAWAN [address] [place] [address] 04/14/2025 Appointment [facility] [address] [place] [address] Elaine Marquez, OT [address] [place] [address] 04/16/2025 1:30 AM EST Appointment [facility] [address] [place] [address] Elaine Marquez, OT [address] [place] [address] 10/08/2025 9:30 AM EDT Office Visit [facility] Neurology [address] [place] [phone] Michele London MD [address] [place] [address], [address] [place] [address] documented as of this encounter Visit Diagnoses Not on filedocumented in this encounter Care Teams Advertising Supervisor Relationship Specialty Start Date End Date Pcp, Unknown PCP - General 03/18/24 02/11/25 Pascale Murray PA [address] [place] [address] [place] [address] PCP - General Physician Material Loader 10/16/25 documented as of this encounter Additional Source Comments The information contained in this document represents components of the legal health record. It is not the complete legal health record.[facility]
== END 2025-04-07 15:02 | disposition home or self-care (01) ==
LOC: HO.HMCH 13:18
DX: I10 Essential (primary) hypertension (principal); R00.0 Tachycardia, unspecified; I87.2 Venous insufficiency (chronic) (peripheral); E11.9 Type 2 diabetes mellitus without complications; G35.D Multiple sclerosis, unspecified; R51.9 Headache, unspecified; E78.00 Pure hypercholesterolemia, unspecified; F80.81 Childhood onset fluency disorder; J32.9 Chronic sinusitis, unspecified; K21.9 Gastro-esophageal reflux disease without esophagitis